=== PATIENT | female | born 1990 | race Caucasian/White ===

== ENCOUNTER 2016-05-17 12:40 | Emergency (ER) | payer BC, OTHER ==
--- NOTE | 2016-05-17 13:42 | ED ---
Female Urogenital HPI - General Chief complaint: Vaginal Bleeding Stated complaint: Cramping Length Unknown Time Seen by Provider: 05/17/16 13:31 Source: patient, RN notes reviewed Mode of arrival: ambulatory Limitations: no limitations - History of Present Illness Initial comments: 25-year-old female presents emergency Department with a chief complaint of pelvic pain. Patient states that she is currently and she has developed some pain in the center of her lower abdomen. Patient noticed some light spotting a few days ago. Patient states that she is a . Patient states she hasn't had a fever chills. Patient denies any changes in bowel or bladder habits. Patient states that she was concerned due to the continued abdominal pain and discomfort so she thought that she should be seen. Patient states she has had nausea and vomiting on and off recently. Patient denies any recent fever, chills, shortness of breath, chest pain, back pain, numbness or tingling, dysuria or hematuria, constipation or diarrhea, headaches or visual changes, or any other current symptoms. Last Menstrual Period: 04/02/16 - Related Data Home Medications Medication Instructions Recorded Confirmed Melatonin 3 mg PO HS PRN 05/17/16 05/17/16 Allergies Allergy/AdvReac Type Severity Reaction Status Date / Time No Known Allergies Allergy Verified 05/17/16 14:30 Review of Systems ROS Statement: Those systems with pertinent positive or pertinent negative responses have been documented in the HPI. ROS Other: All systems not noted in ROS Statement are negative. Past Medical History Past Medical History: No Reported History Additional Past Medical History / Comment(s): high risk pregnanies History of Any Multi-Drug Resistant Organisms: None Reported Past Surgical History: No Surgical Hx Reported, Ear Surgery Past Psychological History: Anxiety, Bipolar, Depression Smoking Status: Current every day smoker Past Alcohol Use History: Occasional Past Drug Use History: None Reported, Marijuana General Exam - General Exam Comments Initial Comments: General: The patient is awake and alert, in no distress, and does not appear acutely ill. Eye: Pupils are equal, round and reactive to light, extra-ocular movements are intact; there is normal conjunctiva bilaterally. No signs of icterus. Ears, nose, mouth and throat: There are moist mucous membranes. Neck: The neck is supple, there is no tenderness. Cardiovascular: There is a regular rate and rhythm. No murmur, rub or gallop is appreciated. Respiratory: Lungs are clear to auscultation, respirations are non-labored, breath sounds are equal. No wheezes, stridor, rales, or rhonchi. Gastrointestinal: Soft, non-distended, non-tender abdomen without masses or organomegaly noted. There is no rebound or guarding present. No CVA tenderness. Bowel sounds are unremarkable. Back: There is no tenderness to palpation in the midline. There is no obvious deformity. No rashes noted. Musculoskeletal: Normal ROM, no tenderness, There is no pedal edema. There is no calf tenderness or swelling. Sensation intact. Pulses equal bilaterally 2+. Neurological: CN II-XII intact, There are no obvious motor or sensory deficits. Coordination appears grossly intact. Speech is normal. Skin: Skin is warm and dry and no rashes or lesions are noted. Psychiatric: Cooperative, appropriate mood & affect, normal judgment. Limitations: no limitations Course Vital Signs 05/17/16 05/17/16 12:54 16:00 Temperature 98.1 F 98 F Pulse Rate 71 84 Respiratory 18 20 Rate Blood Pressure 138/60 110/68 O2 Sat by Pulse 99 98 Oximetry Medical Decision Making - Medical Decision Making 25-year-old female presents to emergency Department chief complaint of abdominal pain. This time patient's ultrasound is reviewed that does show a confirmed IUP. Patient's mother is otherwise reviewed. He does appear to be some mild dehydration we will give the patient fluids here as well as Tylenol and Reglan. We discussed follow-up with RETORT PRESS OPERATOR and return parameters. Patient stated she understood all questions have been answered. This time she'll be discharged home. - Lab Data Result diagrams: 05/17/16 14:34 05/17/16 14:34 Lab Results 05/17/16 05/17/16 05/17/16 Range/Units 14:30 14:34 14:34 WBC 11.2 H (3.8-10.6) k/uL RBC 4.35 (3.80-5.40) m/uL Hgb 13.7 (11.4-16.0) gm/dL Hct 41.7 (34.0-46.0) % MCV 95.9 (80.0-100.0) fL MCH 31.4 (25.0-35.0) pg MCHC 32.8 (31.0-37.0) g/dL RDW 12.8 (11.5-15.5) % Plt Count 290 (150-450) k/uL Neutrophils % 86 % Lymphocytes % 8 % Monocytes % 4 % Eosinophils % 0 % Basophils % 0 % Neutrophils # 9.7 H (1.3-7.7) k/uL Lymphocytes # 0.9 L (1.0-4.8) k/uL Monocytes # 0.5 (0-1.0) k/uL Eosinophils # 0.1 (0-0.7) k/uL Basophils # 0.0 (0-0.2) k/uL Sodium 140 (137-145) mmol/L Potassium 4.0 (3.5-5.1) mmol/L Chloride 109 H (98-107) mmol/L Carbon Dioxide 19 L (22-30) mmol/L Anion Gap 12 mmol/L BUN 8 (7-17) mg/dL Creatinine 0.60 (0.52-1.04) mg/dL Est GFR (MDRD) Af Amer >60 (>60 ml/min/1.73 sqM) Est GFR (MDRD) Non-Af >60 (>60 ml/min/1.73 sqM) Glucose 100 H (74-99) mg/dL Calcium 9.7 (8.4-10.2) mg/dL Total Bilirubin 0.7 (0.2-1.3) mg/dL AST 18 (14-36) U/L ALT 22 (9-52) U/L Alkaline Phosphatase 55 (38-126) U/L Total Protein 7.3 (6.3-8.2) g/dL Albumin 4.5 (3.5-5.0) g/dL HCG, Quant 18266.8 mIU/mL Urine Color Urine Appearance (Clear) Urine pH (5.0-8.0) Ur Specific [place] (1.001-1.035) Urine Protein (Negative) Urine Glucose (UA) (Negative) Urine Ketones (Negative) Urine Blood (Negative) Urine Nitrate (Negative) Urine Bilirubin (Negative) Urine Urobilinogen (<2.0) mg/dL Ur Leukocyte Esterase (Negative) Urine WBC (0-5) /hpf Ur Squamous Epith Cells (0-4) /hpf Urine Bacteria (None) /hpf Urine Mucus (None) /hpf Blood Type B Positive Blood Type Recheck No 05/17/16 Range/Units 14:34 WBC (3.8-10.6) k/uL RBC (3.80-5.40) m/uL Hgb (11.4-16.0) gm/dL Hct (34.0-46.0) % MCV (80.0-100.0) fL MCH (25.0-35.0) pg MCHC (31.0-37.0) g/dL RDW (11.5-15.5) % Plt Count (150-450) k/uL Neutrophils % % Lymphocytes % % Monocytes % % Eosinophils % % Basophils % % Neutrophils # (1.3-7.7) k/uL Lymphocytes # (1.0-4.8) k/uL Monocytes # (0-1.0) k/uL Eosinophils # (0-0.7) k/uL Basophils # (0-0.2) k/uL Sodium (137-145) mmol/L Potassium (3.5-5.1) mmol/L Chloride (98-107) mmol/L Carbon Dioxide (22-30) mmol/L Anion Gap mmol/L BUN (7-17) mg/dL Creatinine (0.52-1.04) mg/dL Est GFR (MDRD) Af Amer (>60 ml/min/1.73 sqM) Est GFR (MDRD) Non-Af (>60 ml/min/1.73 sqM) Glucose (74-99) mg/dL Calcium (8.4-10.2) mg/dL Total Bilirubin (0.2-1.3) mg/dL AST (14-36) U/L ALT (9-52) U/L Alkaline Phosphatase (38-126) U/L Total Protein (6.3-8.2) g/dL Albumin (3.5-5.0) g/dL HCG, Quant mIU/mL Urine Color Yellow Urine Appearance Clear (Clear) Urine pH 5.5 (5.0-8.0) Ur Specific [place] 1.022 (1.001-1.035) Urine Protein Trace H (Negative) Urine Glucose (UA) Negative (Negative) Urine Ketones 3+ H (Negative) Urine Blood Negative (Negative) Urine Nitrate Negative (Negative) Urine Bilirubin Negative (Negative) Urine Urobilinogen <2.0 (<2.0) mg/dL Ur Leukocyte Esterase Trace H (Negative) Urine WBC 4 (0-5) /hpf Ur Squamous Epith Cells 5 H (0-4) /hpf Urine Bacteria Rare H (None) /hpf Urine Mucus Moderate H (None) /hpf Blood Type Blood Type Recheck - Radiology Data Radiology results: report reviewed, image reviewed Disposition Clinical Impression: Abdominal pain affecting Disposition: HOME SELF-CARE Condition: Stable Instructions: Abdominal Pain in (ED) Additional Instructions: Please use medication as discussed. Please follow up with family doctor if symptoms have not improved over the next two days. Please return to the emergency room if your symptoms increase or worsen or for any other concerns. Referrals: Kaley Hdz MD [Primary Care Provider] - 1-2 days Time of Disposition: 16:17
[2016-05-17] MEDS ORDERED: SODIUM CHLORIDE 0.9% 1,000 ML IV STA (14:15)
[2016-05-17 14:52] LABS: Basophils % (A) 0 %; CH 32.1; CHCM 33.6; Eosinophils # (A) 0.1 k/uL (0-0.7); Eosinophils % (A) 0 %; HCT 41.7 % (34.0-46.0); HGB 13.7 gm/dL (11.4-16.0); Luc # (Auto) 0.09; Luc % (Auto) 1; Lymphocytes # (A) 0.9 k/uL (1.0-4.8); Lymphocytes % (A) 8 %; MCH 31.4 pg (25.0-35.0); MCHC 32.8 g/dL (31.0-37.0); MCV 95.9 fL (80.0-100.0); Mean Platelet Volume 6.7; Monocytes # (A) 0.5 k/uL (0-1.0); Monocytes % (A) 4 %; Neutrophils # (A) 9.7 k/uL (1.3-7.7); Neutrophils % (A) 86 %; RBC 4.35 m/uL (3.80-5.40); RDW 12.8 % (11.5-15.5); WBC 11.2 k/uL (3.8-10.6)
[2016-05-17 14:58] LABS: Appearance,Urine Clear (Clear); Bacteria,Urine Rare /hpf; Bilirubin,Urine Negative (Negative); Glucose,Urine (UA) Negative (Negative); Ketones,Urine 3+ (Negative); Leukocyte Esterase,Urine Trace (Negative); Mucus,Urine Moderate /hpf; Nitrite,Urine Negative (Negative); PH, Urine 5.5 (5.0-8.0); Particle Count 13895; Protein,Urine Trace (Negative); Specific Gravity,Urine 1.022 (1.001-1.035); Squamous Epithelial Cell,Urine 5 /hpf (0-4); UA Billing (MACRO vs. MICRO) MICRO; Urobilinogen,Urine <2.0 mg/dL (<2.0); WBC,Urine 4 /hpf (0-5)
[2016-05-17 15:01] LABS: ALT 22 U/L (9-52); AST 18 U/L (14-36); Alkaline Phosphatase 55 U/L (38-126); Anion Gap 12 mmol/L; Blood Urea Nitrogen 8 mg/dL (7-17); Calcium 9.7 mg/dL (8.4-10.2); Carbon Dioxide 19 mmol/L (22-30); Chloride 109 mmol/L (98-107); Glucose 100 mg/dL (74-99); Non-African American GFR(MDRD) >60 (>60 ml/min/1.73 sqM); Sodium 140 mmol/L (137-145); Total Bilirubin 0.7 mg/dL (0.2-1.3); Total Protein 7.3 g/dL (6.3-8.2)
--- NOTE | 2016-05-17 15:29 | US ---
EXAMINATION TYPE: US OB <=14 wks transvag DATE OF EXAM: 05/17/2016 3:01 PM COMPARISON: NONE CLINICAL HISTORY: Pain. Left pelvic pain, spotting 2 days ago EXAM PERFORMED: Transvaginal (TV) and Transabdominal (TA) pelvic ultrasound. EXAM MEASUREMENTS: GESTATIONAL AGE / DATING Physician Established: not established Dates by LMP: (6 weeks/3 days) EDC: 01/07/17 Dates by First Scan: no prior Dates by Current Scan for: (6 weeks/0 days) EDC: 01/10/17 MATERNAL ANATOMY Uterus: 6.9 x 5.5 x 6.0cm Right Ovary: 3.8 x 1.9 x 2.6cm Left Ovary: 3.0 x 1.2 x 3.2cm Post CDS / Adnexa: cystic area right adnexa adjacent to right ovary = 1.0 x 0.9 x 1.1cm Presence of free fluid: no Presence of corpus luteal cyst: yes,right ovary = 2.1 x 1.5 x 1.7cm GESTATION / SURVEY CRL: 0.3cm (6 weeks/0 days) Yolk Sac (normal less than 6mm): 0.2cm Heart Rate: 110 bpm Rhythm: Normal IUP: Viable IUP Date of LMP: 04/02/16 Beta HcG (if available): unavailable TECHNOLOGIST IMPRESSION: Single viable IUP 6wks/0days with BARON of 01/10/17. Heart rate lower end of normal. Corpus luteum right ovary Uterus is anteverted in shape and within normal limits in size. Centrally in the uterus there is gest ational sac, yolk sac, pole identified. No free fluid is seen in pelvic cul-de-sac. heart tones are regular and measure 110 bpm lower limits of normal. Both ovaries are identified. Within the right ovary there is 2.1 cm hypoechoic peripheral hypervascul ar lesion felt to reflect corpus luteal cyst. A 10 mm extraovarian cystic lesion right adnexa is note d could reflect exophytic simple appearing cyst as is immediately adjacent to right ovary. IMPRESSION: Single live intrauterine gestation is confirmed, mean crown-rump length is 0.3 cm corresponding to 6 week 0 day old fetus.
[2016-05-17] MEDS ORDERED: METOCLOPRAMIDE 5 MG/ML 2 ML VIAL IVP STA (15:32)
[2016-05-17] MEDS ORDERED: ACETAMINOPHEN IV (For NPO) 1,000 MG in EMPTY BAG 1 BAG IVPB ONE (15:32)
[2016-05-17 15:54] LABS: HCG,Quantitative Serum 23231.8 mIU/mL
[2016-05-17 16:25] VITALS: BP 117/75; PULSE 78; RESP 16; TEMP 97.8
== END 2016-05-17 16:25 | disposition home or self-care (01) ==
LOC: EC 12:40
DX: O99.89 Other specified diseases and conditions complicating pregnancy, childbirth and the puerperium (principal); O20.9 Hemorrhage in early pregnancy, unspecified; O99.331 Smoking (tobacco) complicating pregnancy, first trimester; R10.2 Pelvic and perineal pain; F17.200 Nicotine dependence, unspecified, uncomplicated; Z3A.01 Less than 8 weeks gestation of pregnancy
CPT/HCPCS: 36415; 86900; 86901; 80053; 85025; 81001; 84702; 87086; 76801; 76817; 99284; 96365; 96375; 96361; J2765; J0131; 87077; 87186

== ENCOUNTER 2016-05-21 07:33 | Inpatient (IN) | payer BC, MEDICAID ==
[2016-05-21] MEDS ORDERED: diphenhydrAMINE 50 MG CAP PO STA (08:08)
--- NOTE | 2016-05-21 08:21 | ED ---
Psych HPI - General Chief Complaint: Psychiatric Symptoms Stated Complaint: panic attack Time Seen by Provider: 05/21/16 07:56 Source: patient Mode of arrival: ambulatory - History of Present Illness Initial Comments: 25-year-old female patient presents to emergency department today for complaints of increased anxiety, restlessness, and suicidal ideation over the last 4 days. Patient states that she was seen here 4 days ago and found out that she was . Since then she has unable to sleep, unable to eat, and has had multiple panic attacks. Patient does verbalize suicidal ideation, she denies any specific plan to do this. She has had suicidal ideation in the past with no specific attempt. Patient has been hospitalized twice before for depression and suicidal thoughts. Patient states that it feels like her skin is crawling, she cannot relax, and she has been crying continuously for the last 4 days. During exam patient is tearful, and repeatedly asks if we can " get rid of this" and points to her belly. She states she doesn't want her child anymore if it is going to make her feel this way. Patient denies any chest pain, shortness of breath, nausea, vomiting, or abdominal pain. She denies any vaginal bleeding, discharge, or urinary symptoms. In light of patient's verbalization of suicidal ideation we will place a sitter with the patient. - Related Data Home Medications Medication Instructions Recorded Confirmed Melatonin 3 mg PO HS PRN 05/17/16 05/21/16 Previous Rx's Medication Instructions Recorded Cephalexin [Keflex] 500 mg PO Q6HR #28 cap 05/21/16 Metoclopramide [Reglan] 10 mg PO TID PRN #15 tab 05/21/16 Allergies Allergy/AdvReac Type Severity Reaction Status Date / Time No Known Allergies Allergy Verified 05/21/16 10:34 Review of Systems ROS Statement: Those systems with pertinent positive or pertinent negative responses have been documented in the HPI. ROS Other: All systems not noted in ROS Statement are negative. Past Medical History Past Medical History: No Reported History Additional Past Medical History / Comment(s): high risk pregnanies History of Any Multi-Drug Resistant Organisms: None Reported Past Surgical History: No Surgical Hx Reported, Ear Surgery Past Psychological History: Anxiety, Bipolar, Depression Smoking Status: Current every day smoker Past Alcohol Use History: Occasional Past Drug Use History: None Reported, Marijuana General Exam Limitations: no limitations General appearance: alert, anxious Head exam: Present: atraumatic, normocephalic Eye exam: Present: normal appearance, PERRL ENT exam: Present: normal exam, normal oropharynx, mucous membranes moist. Absent: mucous membranes dry Neck exam: Present: normal inspection Respiratory exam: Present: normal lung sounds bilaterally. Absent: respiratory distress, wheezes, rales, rhonchi Cardiovascular Exam: Present: regular rate, normal rhythm, normal heart sounds. Absent: systolic murmur, diastolic murmur, rubs, gallop, clicks GI/Abdominal exam: Present: soft, normal bowel sounds. Absent: distended, tenderness, guarding, rebound, rigid, organomegaly, mass Extremities exam: Present: normal inspection Back exam: Present: normal inspection Neurological exam: Present: alert, oriented X3, CN II-XII intact Psychiatric exam: Present: agitated, anxious Skin exam: Present: warm, dry, intact Course Vital Signs 05/21/16 07:36 Temperature 98.0 F Pulse Rate 122 H Respiratory 26 H Rate Blood Pressure 131/87 O2 Sat by Pulse 99 Oximetry Medical Decision Making - Medical Decision Making 25-year-old female presented emergency from for panic attacks states she does not feel right. Patient had a ago by EPS. That she does not meet inpatient criteria that she will be monitored at home by her mother who accepts responsibility. Patient will be given antibiotics for UTI and she had a culture elevated positive for E. coli. Patient will be discharged with antinausea medication return parameters were discussed. - Lab Data Lab Results 05/21/16 Range/Units 08:25 Urine Color Yellow Urine Appearance Cloudy H (Clear) Urine pH 5.5 (5.0-8.0) Ur Specific [place] 1.025 (1.001-1.035) Urine Protein 1+ H (Negative) Urine Glucose (UA) Negative (Negative) Urine Ketones 3+ H (Negative) Urine Blood Negative (Negative) Urine Nitrate Negative (Negative) Urine Bilirubin Negative (Negative) Urine Urobilinogen <2.0 (<2.0) mg/dL Ur Leukocyte Esterase Large H (Negative) Urine WBC 8 H (0-5) /hpf Ur Squamous Epith Cells 17 H (0-4) /hpf Urine Mucus Many H (None) /hpf Urine Opiates Screen Not Detected (NotDetected) Ur Oxycodone Screen Not Detected (NotDetected) Urine Methadone Screen Not Detected (NotDetected) Ur Propoxyphene Screen Not Detected (NotDetected) Ur Barbiturates Screen Not Detected (NotDetected) U Tricyclic Antidepress Not Detected (NotDetected) Ur Phencyclidine Scrn Not Detected (NotDetected) Ur Amphetamines Screen Not Detected (NotDetected) U Methamphetamines Scrn Not Detected (NotDetected) U Benzodiazepines Scrn Not Detected (NotDetected) Urine Cocaine Screen Not Detected (NotDetected) U Marijuana (THC) Screen Detected H (NotDetected) Disposition Clinical Impression: Acute anxiety, UTI (urinary tract infection) Disposition: HOME SELF-CARE Condition: Stable Instructions: Anxiety (ED) Additional Instructions: Please return to the Emergency Department if symptoms worsen or any other concerns. Prescriptions: Cephalexin [Keflex] 500 mg PO Q6HR #28 cap Metoclopramide [Reglan] 10 mg PO TID PRN #15 tab PRN Reason: GERD Time of Disposition: 10:48
[2016-05-21 08:56] LABS: Appearance,Urine Cloudy (Clear); Bilirubin,Urine Negative (Negative); Glucose,Urine (UA) Negative (Negative); Ketones,Urine 3+ (Negative); Leukocyte Esterase,Urine Large (Negative); Mucus,Urine Many /hpf; Nitrite,Urine Negative (Negative); PH, Urine 5.5 (5.0-8.0); Particle Count 30151; Protein,Urine 1+ (Negative); Specific Gravity,Urine 1.025 (1.001-1.035); Squamous Epithelial Cell,Urine 17 /hpf (0-4); UA Billing (MACRO vs. MICRO) MICRO; Urobilinogen,Urine <2.0 mg/dL (<2.0); WBC,Urine 8 /hpf (0-5)
[2016-05-21] MEDS ORDERED: cefTRIAXone 1,000 MG VIAL (IM USE) IM STA (10:48)
--- NOTE | 2016-05-21 11:11 | ED ---
Medical Decision Making - Medical Decision Making Disposition was changed at this time as patient will be petitioned and admitted to the hospital. - Lab Data Lab Results 05/21/16 Range/Units 08:25 Urine Color Yellow Urine Appearance Cloudy H (Clear) Urine pH 5.5 (5.0-8.0) Ur Specific [place] 1.025 (1.001-1.035) Urine Protein 1+ H (Negative) Urine Glucose (UA) Negative (Negative) Urine Ketones 3+ H (Negative) Urine Blood Negative (Negative) Urine Nitrate Negative (Negative) Urine Bilirubin Negative (Negative) Urine Urobilinogen <2.0 (<2.0) mg/dL Ur Leukocyte Esterase Large H (Negative) Urine WBC 8 H (0-5) /hpf Ur Squamous Epith Cells 17 H (0-4) /hpf Urine Mucus Many H (None) /hpf Urine Opiates Screen Not Detected (NotDetected) Ur Oxycodone Screen Not Detected (NotDetected) Urine Methadone Screen Not Detected (NotDetected) Ur Propoxyphene Screen Not Detected (NotDetected) Ur Barbiturates Screen Not Detected (NotDetected) U Tricyclic Antidepress Not Detected (NotDetected) Ur Phencyclidine Scrn Not Detected (NotDetected) Ur Amphetamines Screen Not Detected (NotDetected) U Methamphetamines Scrn Not Detected (NotDetected) U Benzodiazepines Scrn Not Detected (NotDetected) Urine Cocaine Screen Not Detected (NotDetected) U Marijuana (THC) Screen Detected H (NotDetected) Disposition Clinical Impression: Acute anxiety, UTI (urinary tract infection), Mood disorder Disposition: ADMITTED IP TO THIS [facility] Condition: Fair Additional Instructions: Please return to the Emergency Department if symptoms worsen or any other concerns. Prescriptions: Cephalexin [Keflex] 500 mg PO Q6HR #28 cap Metoclopramide [Reglan] 10 mg PO TID PRN #15 tab PRN Reason: GERD Referrals: Kaley Hdz MD [Primary Care Provider] - 1-2 days
[2016-05-21] MEDS ORDERED: ACETAMINOPHEN TAB 500 MG TAB PO STA (11:39)
[2016-05-21] MEDS ORDERED: METOCLOPRAMIDE 5 MG/ML 2 ML VIAL IM STA (12:06)
[2016-05-21] MEDS ORDERED: ZIPRASIDONE 20 MG VIAL IM PRN (15:50)
[2016-05-21] MEDS ORDERED: ZIPRASIDONE 20 MG VIAL IM ONE (15:59)
[2016-05-21] MEDS ORDERED: WATER FOR INJECTION, STERILE 10 ML IV ONE (15:59)
[2016-05-21] MEDS: CEPHALEXIN 500 MG CAP PO SCH (18:39)
[2016-05-21] MEDS: METOCLOPRAMIDE 10 MG TAB PO PRN (18:39)
[2016-05-21] MEDS ORDERED: HALOPERIDOL LACTATE 5 MG/ML 1 ML VIAL IM ONE (20:03)
[2016-05-21] MEDS ORDERED: HALOPERIDOL 5 MG TAB PO STA (20:04)
[2016-05-21 20:36] LABS: Basophils % (A) 0 %; CH 31.8; Eosinophils % (A) 0 %; HCT 42.1 % (34.0-46.0); HDW 2.13; HGB 13.6 gm/dL (11.4-16.0); Luc # (Auto) 0.21; Luc % (Auto) 2; Lymphocytes # (A) 1.6 k/uL (1.0-4.8); Lymphocytes % (A) 12 %; MCH 31.3 pg (25.0-35.0); MCHC 32.3 g/dL (31.0-37.0); MCV 96.8 fL (80.0-100.0); Mean Platelet Volume 6.9; Monocytes # (A) 0.7 k/uL (0-1.0); Monocytes % (A) 5 %; Neutrophils # (A) 10.3 k/uL (1.3-7.7); Neutrophils % (A) 81 %; RBC 4.35 m/uL (3.80-5.40); RDW 12.7 % (11.5-15.5); WBC 12.8 k/uL (3.8-10.6); WBC (Perox) 13.81
[2016-05-21 20:55] LABS: ALT 25 U/L (9-52); AST 18 U/L (14-36); Alkaline Phosphatase 52 U/L (38-126); Anion Gap 16 mmol/L; Blood Urea Nitrogen 11 mg/dL (7-17); Carbon Dioxide 23 mmol/L (22-30); Chloride 101 mmol/L (98-107); Glucose 117 mg/dL (74-99); Non-African American GFR(MDRD) >60 (>60 ml/min/1.73 sqM); Sodium 140 mmol/L (137-145); Total Bilirubin 0.6 mg/dL (0.2-1.3); Total Protein 7.8 g/dL (6.3-8.2)
--- NOTE | 2016-05-21 20:57 | CONS ---
DATE OF CONSULTATION: 05/21/2016 REASON FOR CONSULTATION: Advice regarding polysubstance abuse and other Medical issues requested by psychiatry. HISTORY OF PRESENT ILLNESS: This 25-year-old woman with a past history of bipolar depression. History of anxiety, history of polysubstance abuse, being followed by Dr. Hdz in the outpatient setting is also 6 weeks according to her. The patient is complaining of severe multiple anxiety symptoms and the patient was admitted to the hospital for further evaluation and treatment. The patient is hyperactive in her room and the patient is unable to sit still, unable to sleep, unable to eat and multiple panic attacks also. There is no history of any fever, rigors. No history of headache, loss of consciousness, seizures. The patient feels the skin is crawling. The patient's SUCCESS COACH is Dr. Fernández. There is no history of any fever, rigors or chills. No history of headache, loss of consciousness or seizures. The patient being followed by Dr. Hdz in the outpatient setting. PAST MEDICAL HISTORY: 1. History of anxiety, bipolar depression. 2. History of nicotine dependence. 3. History of THC. Medications prior to admission include: 1. Melatonin 3 mg q.h.s. p.r.n. 2. Reglan 10 mg t.i.d. ALLERGIES: None. FAMILY HISTORY: No history of heart disease or strokes in the family. SOCIAL HISTORY: Smoking. THC as mentioned earlier. REVIEW OF SYSTEMS: HEENT: No diminished vision. No diminished hearing. CARDIOVASCULAR: No angina or palpitations. RESPIRATORY: No cough or hemoptysis. GI: No nausea or vomiting. : As mentioned earlier. Nervous system: No numbness or weakness. ALLERGY/IMMUNOLOGY: No asthma or hayfever. MUSCULOSKELETAL: As mentioned earlier. DERMATOLOGY/ONCOLOGY: No history of anemia. ENDOCRINE: No history of diabetes or hypothyroidism. CONSTITUTIONAL: As mentioned earlier. DERMATOLOGY: Negative. PSYCHIATRY: As mentioned earlier. RHEUMATOLOGY: negative. PHYSICAL EXAMINATION: The patient is alert and oriented x3. Pulse is 90, blood pressure is 124/60. Respiratory rate 16. Temperature 98 degrees. Pulse ox 98% on room air. HEENT: Conjunctivae normal. NECK: No jugular venous distention. CARDIOVASCULAR: S1, S2 muffled. RESPIRATORY: Breath sounds diminished at the bases. A few scattered rhonchi and crackles. ABDOMEN: Soft, nontender. No mass palpable. LEGS: No edema. No swelling. CENTRAL NERVOUS SYSTEM: Higher functions as mentioned earlier. Moves all four limbs. No focal deficits. LYMPHATICS: No lymph nodes palpable in the neck, axillae or groin. SKIN: No ulcer, rash or bleeding. LABS: Her UA noted, large leukocyte esterase otherwise THC positive. ASSESSMENT: 1. Urinary tract infection. 2. Six weeks' . 3. History of positive THC. 4. History of nicotine dependence. 5. Anxiety, bipolar depression and panic attacks. 6. FULL CODE. RECOMMENDATIONS AND DISCUSSION: This 25 -year-old woman presented with multiple medical issues. At this time, I recommend to continue current medications and continue symptomatic treatment. The patient was started on Keflex. I would also recommend urine culture and I would also recommend obtain baseline labs and I will be happy to review abnormalities and baseline labs. Otherwise, I would also recommend SUCCESS COACH consultation. Further psychiatric evaluation also. We will follow the patient closely with you. Prognosis guarded. Further recommendations to follow. MTDD
[2016-05-22] MEDS: CEPHALEXIN 500 MG CAP PO SCH ×4 (00:44→18:57)
[2016-05-22 10:12] VITALS: BMI 22.8
[2016-05-22] MEDS: METOCLOPRAMIDE 10 MG TAB PO PRN (12:34)
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
[2016-05-22] MEDS: busPIRone HCl 5 MG TAB PO SCH ×2 (14:45→21:39)
[2016-05-22] MEDS ORDERED: ONDANSETRON 4 MG TAB PO PRN (17:16)
[2016-05-22] MEDS: ONDANSETRON ODT 4 MG TAB PO PRN (18:08)
[2016-05-23] MEDS: CEPHALEXIN 500 MG CAP PO SCH ×4 (01:43→18:03)
[2016-05-23] MEDS: ONDANSETRON ODT 4 MG TAB PO PRN ×3 (06:33→22:35)
[2016-05-23] MEDS: busPIRone HCl 5 MG TAB PO SCH ×2 (09:30→20:28)
--- NOTE | 2016-05-23 10:36 | P.OBCN ---
History of Present Illness Consult date: 05/23/16 Reason for consult: other (, hyperemesis) Chief complaint: Hyperemesis, anxiety History of present illness: 25 year old presented to the hospital with excessive N/V as well as a "mental breakdown". She has anxiety, depression and bipolar in her history per pt. She is currently being treated with buspar for her anxiety, refusing antidepressants. She says she feels empty and wants to rock back and forth because her legs won't stop. Her vomitting is improving. I added zofran odt to her regimen yesterday because reglan was not helping and she was not keeping anything down. Today she has kept down one popsicle so far. Review of Systems All systems: negative Constitutional: Denies chills, Denies fever Eyes: denies blurred vision, denies pain Ears, nose, mouth and throat: Denies headache, Denies sore throat Cardiovascular: Denies chest pain, Denies shortness of breath Respiratory: Denies cough Gastrointestinal: Reports nausea, Reports vomiting, Denies diarrhea Genitourinary: Denies dysuria, Denies hematuria Musculoskeletal: Denies myalgias Integumentary: Denies pruritus, Denies rash Neurological: Denies numbness, Denies weakness Psychiatric: Denies anxiety, Denies depression Endocrine: Denies fatigue, Denies weight change Past Medical History Past Medical History: No Reported History Additional Past Medical History / Comment(s): OB history: 3 miscarriages, 1 NVD at term and 1 vag delivery at 31 weeks at [facility]. History of Any Multi-Drug Resistant Organisms: None Reported Past Surgical History: No Surgical Hx Reported, Ear Surgery Past Psychological History: Anxiety, Bipolar, Depression Smoking Status: Former smoker Past Alcohol Use History: Occasional Past Drug Use History: None Reported, Marijuana Medications and Allergies Home Medications Medication Instructions Recorded Confirmed Type Melatonin 3 mg PO HS PRN 05/17/16 05/21/16 History Allergies Allergy/AdvReac Type Severity Reaction Status Date / Time No Known Allergies Allergy Verified 05/22/16 10:26 Exam Osteopathic Statement: *. No significant issues noted on an osteopathic structural exam other than those noted in the History and Physical/Consult. - Vital Signs Vital signs: Vital Signs Temp Pulse Resp BP Pulse Ox 05/23/16 05:35 97.8 F 72 20 138/91 05/22/16 09:57 99 20 112/80 97 Intake and Output 05/22/16 05/23/16 05/23/16 21:59 06:59 14:59 Other: Weight 55.7 kg Patient Weight 05/24/16 06:59 Weight 55.7 kg Abdomen: soft, nontender Results Result Diagrams: 05/21/16 20:25 05/21/16 20:25 Assessment and Plan (1) Hyperemesis gravidarum Status: Acute (2) Marijuana use Status: Acute Plan: 1. US for viability 2. discussed cessation of marijuana 3. cont buspar 4. discussed risks with cornelia rec vitamin B6 after she is discharged 5. continue to try to eat slowly starting with popsicles and crackers.. 6. keep appt with Dr Fernández on June 10.
--- NOTE | 2016-05-23 11:29 | US ---
EXAMINATION TYPE: US OB <= 14 wk fetus DATE OF EXAM: 05/23/2016 11:09 AM COMPARISON: 05/17/2016 CLINICAL HISTORY: viability. G6, P2; Patient stated smokes Marijuana; midline pelvic pain x 1 week wi th current UTI EXAM PERFORMED: Transabdominal (TA) EXAM MEASUREMENTS: GESTATIONAL AGE / DATING Physician Established: not established Dates by LMP: (7 weeks/2 days) EDC: 01/08/2016 Dates by First Scan: ( 6 weeks/6 days) EDC: 01/10/2017 Dates by Current Scan for: (6 weeks/6 days) EDC: 01/10/2017 MATERNAL ANATOMY Uterus: 8.5 x 7.7 x 5.6cm Right Ovary: 2.3 x 1.3 x 1.3cm Left Ovary: 2.1 x 1.4 x 1.9cm Post CDS / Adnexa: wnl Presence of free fluid: no Presence of corpus luteal cyst: not identified by transabdominal US Presence of subchorionic bleed: no GESTATION / SURVEY CRL: 0.9 (6 weeks/6 days) Yolk Sac (normal less than 6mm): 2.5mm Heart Rate: 132 bpm Rhythm: Normal IUP: Viable IUP Date of LMP: 04/02/2016 Beta HcG (if available): NA IMPRESSION: Single,live,IUP, 6 weeks/6 days, EDC: 01/10/2017; HR 132BPM
--- NOTE | 2016-05-23 13:09 | P.PN ---
Progress Note - Text Interval history: The patient is found in her room she follows me to an interview room. Staff report that her behavior has been much improved. The patient was seen by Dr. Gonzalez from obstetrics. An abdominal ultrasound was performed demonstrating a viable . The patient was placed on Zofran and the patient has noticed benefit. The patient has been compliant with the BuSpar 5 mg twice daily and reports an early response. Her family did visit last evening. We discussed that if she continues to demonstrate appropriate behavior today she could be possibly discharged tomorrow. Mental status exam: The patient is alert she seated calmly eye contact is appropriate. She endorses feeling better physically. She is reporting no suicidal or homicidal ideation intent or plan. There is no report of auditory or visual hallucinations she is endorsing no specific delusions at this time. She does not present hypomanic or manic today. Thought process is linear. She maintains a pleasant euthymic affect. She demonstrated no verbal or physical aggressiveness. Insight and judgment improving. Plan: The patient is feeling physically better with use of Zofran. She's been compliant with the BuSpar. She is reporting an early response and feels that her restless leg symptoms are improved. She is looking for to a visit from her mother again this evening. It seems she would be appropriate for discharge tomorrow if she demonstrates consistent appropriate behavior over the course of today and this evening. Dr. Sanchez will assume care of this patient starting tomorrow area vital signs reviewed.
[2016-05-23] MEDS ORDERED: CALCIUM CARBONATE 500 MG CHEWABLE PO PRN (18:22)
[2016-05-23] MEDS ORDERED: NACL IV SCH (18:30)
[2016-05-23] MEDS ORDERED: DEXTROSE IV SCH (18:30)
[2016-05-23] MEDS: DEXTROSE 5%-0.9% NACL 1,000 ML IV SCH (20:14)
[2016-05-24] MEDS: CEPHALEXIN 500 MG CAP PO SCH ×3 (00:12→12:47)
[2016-05-24 01:26] VITALS: BP 107/68; PULSE 59; RESP 18; TEMP 98.3
[2016-05-24] MEDS: DEXTROSE 5%-0.9% NACL 1,000 ML IV SCH (01:32)
[2016-05-24] MEDS: ONDANSETRON ODT 4 MG TAB PO PRN (06:28)
[2016-05-24] MEDS ORDERED: PANTOPRAZOLE 40 MG TABLET PO STA (08:40)
[2016-05-24] MEDS ORDERED: busPIRone HCl 10 MG TAB PO SCH (09:00)
[2016-05-24 10:00] LABS: Anion Gap 12 mmol/L; Blood Urea Nitrogen 7 mg/dL (7-17); Calcium 9.4 mg/dL (8.4-10.2); Carbon Dioxide 26 mmol/L (22-30); Chloride 100 mmol/L (98-107); Glucose 99 mg/dL (74-99); Non-African American GFR(MDRD) >60 (>60 ml/min/1.73 sqM); Potassium 3.3 mmol/L (3.5-5.1); Sodium 138 mmol/L (137-145)
[2016-05-24] MEDS ORDERED: B COMPLEX-VIT C-VIT E-ZINC 1 EACH TAB PO SCH (12:00)
--- NOTE | 2016-05-25 10:32 | DS ---
DATE OF ADMISSION: 05/21/2016 DATE OF DISCHARGE: 05/24/2016 DISCHARGE DIAGNOSES: 1. Mood disorder, not otherwise specified. 2. Anxiety disorder, not otherwise specified. 3. Cluster B personality trait. 4. Patient is 7 weeks . BRIEF SUMMARY OF ADMISSION NOTES: Patient was admitted on May 21 with acting out behavior and having "panic attack." Please refer to the complete history and physical examination dictated by Dr. Reyna on May 22. SUMMARY OF HOSPITAL COURSE: Patient was admitted to the mental health unit on petition, but later she did sign in voluntarily. Once she was admitted to the mental health unit she was seen by ASSOCIATE PROFESSOR OF SOCIOLOGY as the patient was complaining of upset stomach and nausea. They did explain to her the side effects of Zofran on her fetus and she did agree to start the Zofran every 8 hours p.r.n. for nausea. Regarding her anxiety, she did start on BuSpar 5 mg 3 times a day and titrated to 10 mg 3 times a day. Patient was seen by Dr. Gonzalez who did order an ultrasound. He did discuss with her the use of marijuana as she has been smoking marijuana on daily basis, and her urine drug screen was positive for marijuana. Patient did verbalize understanding. Patient was able to tolerate the medication and our social worker aide had family meeting with patient's parents who felt comfortable to take the patient to live with them. I did discuss the case with Dr. Reyna and he felt comfortably regarding discharging the patient today to follow up as an outpatient. Mental status examination at the time of the discharge: The patient is alert. Hygiene and grooming are fair. Speech is spontaneous and nonpressured. Thought process is linear. She denied any hopeless or helpless feeling. She denied any suicidal or homicide ideation. She denied any hypomanic or manic episodes. She denied any psychosis including hallucination or idea of reference or delusion. Insight and judgment are fair. PLAN: Patient will be discharged from the mental health unit today to return to live with her parents. Patient will continue following as outpatient at [facility]. The patient is to continue to see her ASSOCIATE PROFESSOR OF SOCIOLOGY for care. She was given one month supply of BuSpar 10 mg 3 times a day for anxiety. Patient was instructed to abstain completely from marijuana. Patient's condition at the time of the discharge is stable.
== END 2016-05-24 13:35 | disposition home or self-care (01) | DRG 781 ==
LOC: EC 07:33 → 3MHU 13:28
PROVIDERS: ADMIT Psychiatry & Neurology Psychiatry; ATTEND Psychiatry & Neurology Psychiatry
DX: O99.341 Other mental disorders complicating pregnancy, first trimester (principal); R45.851 Suicidal ideations; O23.41 Unspecified infection of urinary tract in pregnancy, first trimester; F39 Unspecified mood [affective] disorder; F12.90 Cannabis use, unspecified, uncomplicated; O99.331 Smoking (tobacco) complicating pregnancy, first trimester; Z3A.01 Less than 8 weeks gestation of pregnancy; F17.200 Nicotine dependence, unspecified, uncomplicated; G25.81 Restless legs syndrome; O21.0 Mild hyperemesis gravidarum; Z81.8 Family history of other mental and behavioral disorders; Z91.410 Personal history of adult physical and sexual abuse
CPT/HCPCS: 76801; 80048; 80053; 80306; 81001; 82075; 84443; 85025; 96372; 99285

== ENCOUNTER 2016-06-02 15:49 | Emergency (ER) | payer BC, OTHER ==
[2016-06-02 17:19] VITALS: RESP 16; TEMP 97.8
--- NOTE | 2016-06-02 18:51 | ED ---
General Adult HPI <Bj Goodrich - Last Filed: 06/02/16 21:08> - General Source: patient, RN notes reviewed Mode of arrival: ambulatory Limitations: no limitations <Bridget Osorio - Last Filed: 06/03/16 02:39> - General Chief complaint: Abdominal Pain Stated complaint: Female /8 wks preg Time Seen by Provider: 06/02/16 18:33 - History of Present Illness Initial comments: Patient is a 25-year-old female presents to emergency room for evaluation of vaginal pain. Patient states she is about 8 weeks . Patient is . Patient states she has sexual intercourse about 2 days ago with her boyfriend. Patient states yesterday she began having pain in her vaginal area. Patient states she feels like her cervix is swollen. Patient denies any history of STDs. Patient states she was diagnosed with urinary tract infection about a week ago was placed on Keflex. Patient states she has ALLERGIC, complex is making her feel so she has only been taking 1 pill per day. Patient states she still having mild pain and burning while urinating but has improved since last week. Patient denies any significant abdominal pain. Patient states she does feel nauseous. Patient states she vomited twice last night. Patient states she is feeling slightly lightheaded. Patient denies chest pain or shortness of breath. Patient denies any fevers or chills. Patient denies vaginal bleeding. 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 Patient denies history of ectopic pregnancies. (Bridget Osorio) - Related Data Home Medications Medication Instructions Recorded Confirmed Albuterol Inhaler [Ventolin Hfa 2 puff INHALATION Q6HR PRN 06/02/16 06/02/16 Inhaler] Cephalexin [Keflex] 500 mg PO DAILY 06/02/16 06/02/16 Melatonin 3 mg PO HS 06/02/16 06/02/16 busPIRone HCl [Buspar] 10 mg PO BID 06/02/16 06/02/16 Allergies Allergy/AdvReac Type Severity Reaction Status Date / Time No Known Allergies Allergy Verified 06/02/16 18:45 Review of Systems ROS Other: All systems not noted in ROS Statement are negative. <Bj Goodrich - Last Filed: 06/02/16 21:08> ROS Other: All systems not noted in ROS Statement are negative. <DevonMichelleBridget L - Last Filed: 06/03/16 02:39> ROS Statement: Those systems with pertinent positive or pertinent negative responses have been documented in the HPI. Past Medical History Past Medical History: No Reported History Additional Past Medical History / Comment(s): OB history: 3 miscarriages, 1 NVD at term and 1 vag delivery at 31 weeks at [place]. History of Any Multi-Drug Resistant Organisms: None Reported Past Surgical History: No Surgical Hx Reported, Ear Surgery Past Psychological History: Anxiety, Bipolar, Depression Smoking Status: Former smoker Past Alcohol Use History: Occasional Past Drug Use History: None Reported, Marijuana <Bridget Osorio - Last Filed: 06/03/16 02:39> General Exam General appearance: alert, in no apparent distress, anxious Head exam: Present: atraumatic, normocephalic, normal inspection Eye exam: Present: normal appearance, PERRL, EOMI. Absent: scleral icterus, conjunctival injection, periorbital swelling ENT exam: Present: normal exam, mucous membranes moist Neck exam: Present: normal inspection. Absent: tenderness, meningismus, lymphadenopathy Respiratory exam: Present: normal lung sounds bilaterally. Absent: respiratory distress, wheezes, rales, rhonchi, stridor Cardiovascular Exam: Present: normal rhythm, tachycardia, normal heart sounds. Absent: systolic murmur, diastolic murmur, rubs, gallop, clicks GI/Abdominal exam: Present: soft, normal bowel sounds. Absent: distended, tenderness, guarding, rebound, rigid Extremities exam: Present: normal inspection, full ROM, normal capillary refill. Absent: tenderness, pedal edema, joint swelling, calf tenderness Back exam: Present: normal inspection Neurological exam: Present: alert, oriented X3, CN II-XII intact Psychiatric exam: Present: normal affect, normal mood Skin exam: Present: warm, dry, intact, normal color. Absent: rash <Bj Goodrich - Last Filed: 06/02/16 21:08> Limitations: no limitations General appearance: alert, in no apparent distress Head exam: Present: atraumatic, normocephalic, normal inspection Eye exam: Present: normal appearance Pupils: Present: normal accommodation ENT exam: Present: normal exam Neck exam: Present: normal inspection Respiratory exam: Present: normal lung sounds bilaterally. Absent: respiratory distress Cardiovascular Exam: Present: regular rate, normal rhythm, normal heart sounds GI/Abdominal exam: Present: soft, normal bowel sounds. Absent: distended, tenderness, guarding, rebound, rigid External exam: Present: normal external exam Speculum exam: Present: normal speculum exam By manual exam: Present: normal by manual exam Back exam: Present: normal inspection Neurological exam: Present: alert, oriented X3, CN II-XII intact, normal gait Psychiatric exam: Present: normal affect, normal mood Skin exam: Present: warm, dry, intact, normal color. Absent: rash <Bridget Osorio - Last Filed: 06/03/16 02:39> - General Exam Comments Initial Comments: Sitting in exam room, no acute distress. (Bridget Osorio) Medical Decision Making - Lab Data Result diagrams: 06/02/16 18:45 <Bj Goodrich - Last Filed: 06/02/16 21:08> - Lab Data Result diagrams: 06/02/16 18:45 06/02/16 18:45 - Radiology Data Radiology results: report reviewed, image reviewed <Bridget Osorio - Last Filed: 06/03/16 02:39> - Medical Decision Making Patient is 25-year-old female presents emergency room for evaluation of vaginal pain during intercourse. Advised patient to refrain from sexual intercourse for the next 7-10 days and to follow-up with her [facility]. It is possible patient could be having slight uterine prolapse but advised her to follow-up with her [facility] for confirmation. Ultrasound showed no acute findings. Urine does not show evidence for urinary tract infection. Patient states she understands everything was discussed with her. Return parameters discussed. Case discussed with Dr. Goodrich. (Bridget Osorio) - Lab Data Lab Results 06/02/16 06/02/16 06/02/16 Range/Units 18:45 18:45 19:21 WBC 14.1 H (3.8-10.6) k/uL RBC 4.36 (3.80-5.40) m/uL Hgb 13.9 (11.4-16.0) gm/dL Hct 41.9 (34.0-46.0) % MCV 96.1 (80.0-100.0) fL MCH 31.9 (25.0-35.0) pg MCHC 33.2 (31.0-37.0) g/dL RDW 12.7 (11.5-15.5) % Plt Count 336 (150-450) k/uL Neutrophils % 81 % Lymphocytes % 12 % Monocytes % 5 % Eosinophils % 0 % Basophils % 0 % Neutrophils # 11.5 H (1.3-7.7) k/uL Lymphocytes # 1.6 (1.0-4.8) k/uL Monocytes # 0.7 (0-1.0) k/uL Eosinophils # 0.0 (0-0.7) k/uL Basophils # 0.1 (0-0.2) k/uL Sodium 135 L (137-145) mmol/L Potassium 3.7 (3.5-5.1) mmol/L Chloride 99 (98-107) mmol/L Carbon Dioxide 24 (22-30) mmol/L Anion Gap 12 mmol/L BUN 8 (7-17) mg/dL Creatinine 0.57 (0.52-1.04) mg/dL Est GFR (MDRD) Af Amer >60 (>60 ml/min/1.73 sqM) Est GFR (MDRD) Non-Af >60 (>60 ml/min/1.73 sqM) Glucose 80 (74-99) mg/dL Calcium 9.6 (8.4-10.2) mg/dL Total Bilirubin 0.5 (0.2-1.3) mg/dL AST 16 (14-36) U/L ALT 24 (9-52) U/L Alkaline Phosphatase 53 (38-126) U/L Total Protein 7.3 (6.3-8.2) g/dL Albumin 4.3 (3.5-5.0) g/dL HCG, Quant 935299.0 mIU/mL Urine Color Urine Appearance (Clear) Urine pH (5.0-8.0) Ur Specific [place] (1.001-1.035) Urine Protein (Negative) Urine Glucose (UA) (Negative) Urine Ketones (Negative) Urine Blood (Negative) Urine Nitrite (Negative) Urine Bilirubin (Negative) Urine Urobilinogen (<2.0) mg/dL Ur Leukocyte Esterase (Negative) Urine RBC (0-5) /hpf Urine WBC (0-5) /hpf Ur Squamous Epith Cells (0-4) /hpf Urine Mucus (None) /hpf Trichomonas Ag (Rapid) Negative (Negative) 06/02/16 Range/Units 21:29 WBC (3.8-10.6) k/uL RBC (3.80-5.40) m/uL Hgb (11.4-16.0) gm/dL Hct (34.0-46.0) % MCV (80.0-100.0) fL MCH (25.0-35.0) pg MCHC (31.0-37.0) g/dL RDW (11.5-15.5) % Plt Count (150-450) k/uL Neutrophils % % Lymphocytes % % Monocytes % % Eosinophils % % Basophils % % Neutrophils # (1.3-7.7) k/uL Lymphocytes # (1.0-4.8) k/uL Monocytes # (0-1.0) k/uL Eosinophils # (0-0.7) k/uL Basophils # (0-0.2) k/uL Sodium (137-145) mmol/L Potassium (3.5-5.1) mmol/L Chloride (98-107) mmol/L Carbon Dioxide (22-30) mmol/L Anion Gap mmol/L BUN (7-17) mg/dL Creatinine (0.52-1.04) mg/dL Est GFR (MDRD) Af Amer (>60 ml/min/1.73 sqM) Est GFR (MDRD) Non-Af (>60 ml/min/1.73 sqM) Glucose (74-99) mg/dL Calcium (8.4-10.2) mg/dL Total Bilirubin (0.2-1.3) mg/dL AST (14-36) U/L ALT (9-52) U/L Alkaline Phosphatase (38-126) U/L Total Protein (6.3-8.2) g/dL Albumin (3.5-5.0) g/dL HCG, Quant mIU/mL Urine Color Yellow Urine Appearance Cloudy H (Clear) Urine pH 5.5 (5.0-8.0) Ur Specific [place] 1.028 (1.001-1.035) Urine Protein 1+ H (Negative) Urine Glucose (UA) Negative (Negative) Urine Ketones 4+ H (Negative) Urine Blood Negative (Negative) Urine Nitrite Negative (Negative) Urine Bilirubin Negative (Negative) Urine Urobilinogen <2.0 (<2.0) mg/dL Ur Leukocyte Esterase Negative (Negative) Urine RBC <1 (0-5) /hpf Urine WBC 1 (0-5) /hpf Ur Squamous Epith Cells 2 (0-4) /hpf Urine Mucus Many H (None) /hpf Trichomonas Ag (Rapid) (Negative) Disposition <Bj Goodrich - Last Filed: 06/02/16 21:08> Time of Disposition: 22:10 <Bridget Osorio - Last Filed: 06/03/16 02:39> Clinical Impression: Abdominal pain affecting Disposition: HOME SELF-CARE Condition: Good Instructions: Abdominal Pain in (ED) Additional Instructions: Please follow up with [facility]. If any new symptom arises or symptoms worsen, return to ER as soon as possible. Referrals: Kaley Hdz MD [Primary Care Provider] - 1-2 days
[2016-06-02 19:39] LABS: ALT 24 U/L (9-52); AST 16 U/L (14-36); Alkaline Phosphatase 53 U/L (38-126); Anion Gap 12 mmol/L; Blood Urea Nitrogen 8 mg/dL (7-17); Calcium 9.6 mg/dL (8.4-10.2); Carbon Dioxide 24 mmol/L (22-30); Chloride 99 mmol/L (98-107); Glucose 80 mg/dL (74-99); Non-African American GFR(MDRD) >60 (>60 ml/min/1.73 sqM); Potassium 3.7 mmol/L (3.5-5.1); Sodium 135 mmol/L (137-145); Total Bilirubin 0.5 mg/dL (0.2-1.3); Total Protein 7.3 g/dL (6.3-8.2)
--- NOTE | 2016-06-02 19:58 | US ---
EXAMINATION TYPE: US OB <= 14 wk fetus DATE OF EXAM: 06/02/2016 7:47 PM COMPARISON: Prior in PACS CLINICAL HISTORY: Pain. EXAM PERFORMED: Transabdominal (TA) EXAM MEASUREMENTS: GESTATIONAL AGE / DATING Physician Established: (8weeks/5 days) EDC: 01/07/2017 Dates by LMP: (8 weeks/5 days) EDC: 01/07/2017 Dates by First Scan: (8 weeks/2 days) EDC: 01/10/2017 Dates by Current Scan for: (8 weeks/4 days) EDC: 01/08/2017 MATERNAL ANATOMY Uterus: 8.0 x 7.2 x 7.3 cm Right Ovary: 3.4 x 1.9 x 2.1 cm Left Ovary: 2.6 x 1.8 x 2.1 cm Post CDS / Adnexa: wnl Presence of free fluid: No Presence of corpus luteal cyst: Yes, right ovary measuring 1.7 x 1.4 x 1.3 cm Presence of subchorionic bleed: No GESTATION / SURVEY CRL: 1.97 cm (8 weeks/4 days) Yolk Sac (normal less than 6mm): 2 mm Heart Rate: 167 bpm Rhythm: Normal IUP: Viable IUP Date of LMP: 04/02/2016 Beta HcG (if available): Not available at time of exam TECHNOLOGIST IMPRESSION: Viable IUP, measurements congruent with dates IMPRESSION: The ultrasound gestational age is 8 weeks 4 days. I see no complicating process.
[2016-06-02 21:32] LABS: Basophils # (A) 0.1 k/uL (0-0.2); Basophils % (A) 0 %; CH 31.9; CHCM 33.4; Eosinophils % (A) 0 %; HCT 41.9 % (34.0-46.0); HDW 2.09; HGB 13.9 gm/dL (11.4-16.0); Luc # (Auto) 0.19; Luc % (Auto) 1; Lymphocytes # (A) 1.6 k/uL (1.0-4.8); Lymphocytes % (A) 12 %; MCH 31.9 pg (25.0-35.0); MCHC 33.2 g/dL (31.0-37.0); MCV 96.1 fL (80.0-100.0); Mean Platelet Volume 7.6; Monocytes # (A) 0.7 k/uL (0-1.0); Monocytes % (A) 5 %; Neutrophils # (A) 11.5 k/uL (1.3-7.7); Neutrophils % (A) 81 %; RBC 4.36 m/uL (3.80-5.40); RDW 12.7 % (11.5-15.5); WBC 14.1 k/uL (3.8-10.6); WBC (Perox) 14.81
[2016-06-02 21:54] LABS: Appearance,Urine Cloudy (Clear); Bilirubin,Urine Negative (Negative); Glucose,Urine (UA) Negative (Negative); Ketones,Urine 4+ (Negative); Leukocyte Esterase,Urine Negative (Negative); Mucus,Urine Many /hpf; Nitrite,Urine Negative (Negative); PH, Urine 5.5 (5.0-8.0); Particle Count 9779; Protein,Urine 1+ (Negative); RBC,Urine <1 /hpf (0-5); Specific Gravity,Urine 1.028 (1.001-1.035); Squamous Epithelial Cell,Urine 2 /hpf (0-4); UA Billing (MACRO vs. MICRO) MICRO; Urobilinogen,Urine <2.0 mg/dL (<2.0); WBC,Urine 1 /hpf (0-5)
[2016-06-02 22:22] VITALS: BP 108/69; PULSE 84
== END 2016-06-02 22:21 | disposition home or self-care (01) ==
LOC: EC 15:49
DX: O26.891 Other specified pregnancy related conditions, first trimester (principal); R10.2 Pelvic and perineal pain; O99.341 Other mental disorders complicating pregnancy, first trimester; F41.9 Anxiety disorder, unspecified; Z3A.08 8 weeks gestation of pregnancy; Z87.891 Personal history of nicotine dependence; Z79.899 Other long term (current) drug therapy; Z87.440 Personal history of urinary (tract) infections
CPT/HCPCS: 36415; 76801; 80053; 81001; 84702; 85025; 87070; 87205; 87491; 87591; 87808; 99284

== ENCOUNTER 2016-06-06 01:54 | Observation (INO) | payer BC, OTHER ==
[2016-06-06] MEDS ORDERED: METOCLOPRAMIDE 5 MG/ML 2 ML VIAL IVP STA (02:08)
[2016-06-06] MEDS ORDERED: diphenhydrAMINE 50 MG/ML 1 ML VIAL IVP STA (02:08)
[2016-06-06] MEDS ORDERED: SODIUM CHLORIDE 0.9% 2,000 ML IV STA (02:08)
--- NOTE | 2016-06-06 02:27 | ED ---
General Adult HPI - General Chief complaint: Nausea/Vomiting/Diarrhea Stated complaint: 8 wks Preg/Abdominal Pain/NVD Time Seen by Provider: 06/06/16 02:08 Source: patient, RN notes reviewed Mode of arrival: wheelchair Limitations: no limitations - History of Present Illness Initial comments: Patient is a 25-year-old female with chief complaint of 1 day of vomiting and diarrhea, and suprapubic abdominal pain. Patient reports that she is 8 weeks . Patient is . She states that she said history of 3 miscarriage. She denies any vaginal bleeding or vaginal discharge. She states that over the past 2 days that she has not been able to eat anything. Patient reports that she has no fever or chills. She states that she has nothing left in her to continue to vomit. She states that she did take at home nausea medication however she is unsure what it is. She states that it has not helped. Patient feels very dehydrated and weak. Patient reports that she does have some suprapubic abdominal pain, and it radiates towards her right left lower quadrants. She denies any chest pain shortness of breath. She states that she is have some abdominal muscle tenderness from her persistent vomiting. Patient denies any recent fever, chills, shortness of breath, chest pain, back pain, numbness or tingling, dysuria or hematuria, constipation or diarrhea , headaches or visual changes, or any other current symptoms. Patient was seen in the emergency department 4 days ago and was evaluated for vaginal pain during intercourse. Patient did receive a transvaginal ultrasound at that time which showed a viable intrauterine measuring 8 weeks. Urine was clear for any signs of UTI. - Related Data Home Medications Medication Instructions Recorded Confirmed busPIRone HCl [Buspar] 10 mg PO BID 06/02/16 06/06/16 Allergies Allergy/AdvReac Type Severity Reaction Status Date / Time No Known Allergies Allergy Verified 06/06/16 02:03 Review of Systems ROS Statement: Those systems with pertinent positive or pertinent negative responses have been documented in the HPI. ROS Other: All systems not noted in ROS Statement are negative. Past Medical History Past Medical History: No Reported History Additional Past Medical History / Comment(s): OB history: 3 miscarriages, 1 NVD at term and 1 vag delivery at 31 weeks at [place]. History of Any Multi-Drug Resistant Organisms: None Reported Past Surgical History: No Surgical Hx Reported, Ear Surgery Past Psychological History: Anxiety, Bipolar, Depression Smoking Status: Former smoker Past Alcohol Use History: None Reported Past Drug Use History: None Reported General Exam - General Exam Comments Initial Comments: 25-year-old female. Patient is dry heaving. No vomiting just sputum. Limitations: no limitations General appearance: alert, in no apparent distress Head exam: Present: atraumatic, normocephalic, normal inspection Eye exam: Present: normal appearance, PERRL, EOMI. Absent: scleral icterus, conjunctival injection, periorbital swelling ENT exam: Present: normal exam, mucous membranes moist Neck exam: Present: normal inspection. Absent: tenderness, meningismus, lymphadenopathy Respiratory exam: Present: normal lung sounds bilaterally. Absent: respiratory distress, wheezes, rales, rhonchi, stridor Cardiovascular Exam: Present: regular rate, normal rhythm, normal heart sounds. Absent: systolic murmur, diastolic murmur, rubs, gallop, clicks GI/Abdominal exam: Present: soft, tenderness (suprapubic tenderness and RLQ tenderness. ), normal bowel sounds. Absent: distended, guarding, rebound, rigid Extremities exam: Present: normal inspection, full ROM, normal capillary refill. Absent: tenderness, pedal edema, joint swelling, calf tenderness Back exam: Present: normal inspection Neurological exam: Present: alert, oriented X3, CN II-XII intact Psychiatric exam: Present: normal affect, normal mood Skin exam: Present: warm, dry, intact, normal color. Absent: rash Course Vital Signs 06/06/16 06/06/16 02:01 03:26 Temperature 98.1 F Pulse Rate 94 78 Respiratory 20 16 Rate Blood Pressure 140/86 128/74 O2 Sat by Pulse 98 98 Oximetry Medical Decision Making - Medical Decision Making Patient is a 25-year-old female with chief complaint of 1 day of vomiting and diarrhea, and suprapubic abdominal pain. Patient reports that she is 8 weeks . Patient is . She states that she said history of 3 miscarriage. She denies any vaginal bleeding or vaginal discharge. She states that over the past 2 days that she has not been able to eat anything. Patient reports that she has no fever or chills. She states that she has nothing left in her to continue to vomit. She states that she did take at home nausea medication however she is unsure what it is. She states that it has not helped. Patient feels very dehydrated and weak. Patient reports that she does have some suprapubic abdominal pain, and it radiates towards her right left lower quadrants. Patient's lab work was reviewed and does show evidence of leukocytosis of 16.1 with a left shift. Patient was given a 2 L bolus and IV Zofran of and Reglan and Benadryl. Patient reports that her nausea has subsided however she still is continuing to have pain. I discussed this case with Dr. Dior needed a [id number] examination with patient. His inclusion the patient is relatively tender over the suprapubic and right lower quadrants. At this time there is no ultrasound on site. We discussed that the patient that she needs to have an ultrasound to rule out appendicitis. A computed tomography scan would be too much radiation for a patient.. We will be admitting the patient for hydration and nausea medication as well as pain management. It is a possibility the patient could have an appendicitis, or complicated urinary tract infection. Patient will be started on IV Rocephin. Patient is in agreement with the treatment plan. - Lab Data Result diagrams: 06/06/16 02:29 06/06/16 02:29 Lab Results 06/06/16 06/06/16 06/06/16 Range/Units 02:29 02:29 02:29 WBC 16.9 H (3.8-10.6) k/uL RBC 4.58 (3.80-5.40) m/uL Hgb 14.4 (11.4-16.0) gm/dL Hct 42.9 (34.0-46.0) % MCV 93.6 (80.0-100.0) fL MCH 31.5 (25.0-35.0) pg MCHC 33.6 (31.0-37.0) g/dL RDW 12.6 (11.5-15.5) % Plt Count 376 (150-450) k/uL Neutrophils % 89 % Lymphocytes % 6 % Monocytes % 3 % Eosinophils % 0 % Basophils % 0 % Neutrophils # 15.1 H (1.3-7.7) k/uL Lymphocytes # 1.0 (1.0-4.8) k/uL Monocytes # 0.6 (0-1.0) k/uL Eosinophils # 0.0 (0-0.7) k/uL Basophils # 0.1 (0-0.2) k/uL Sodium 135 L (137-145) mmol/L Potassium 4.2 (3.5-5.1) mmol/L Chloride 98 (98-107) mmol/L Carbon Dioxide 20 L (22-30) mmol/L Anion Gap 17 mmol/L BUN 11 (7-17) mg/dL Creatinine 0.60 (0.52-1.04) mg/dL Est GFR (MDRD) Af Amer >60 (>60 ml/min/1.73 sqM) Est GFR (MDRD) Non-Af >60 (>60 ml/min/1.73 sqM) Glucose 113 H (74-99) mg/dL Calcium 10.1 (8.4-10.2) mg/dL Total Bilirubin 0.9 (0.2-1.3) mg/dL AST 19 (14-36) U/L ALT 29 (9-52) U/L Alkaline Phosphatase 56 (38-126) U/L Total Protein 7.8 (6.3-8.2) g/dL Albumin 4.7 (3.5-5.0) g/dL Amylase 65 (30-110) U/L Lipase 39 (23-300) U/L Urine Color Yellow Urine Appearance Cloudy H (Clear) Urine pH 5.5 (5.0-8.0) Ur Specific [place] 1.030 (1.001-1.035) Urine Protein 1+ H (Negative) Urine Glucose (UA) Negative (Negative) Urine Ketones 4+ H (Negative) Urine Blood Negative (Negative) Urine Nitrite Negative (Negative) Urine Bilirubin Negative (Negative) Urine Urobilinogen <2.0 (<2.0) mg/dL Ur Leukocyte Esterase Trace H (Negative) Urine RBC 3 (0-5) /hpf Urine WBC 8 H (0-5) /hpf Ur Squamous Epith Cells 12 H (0-4) /hpf Urine Bacteria Rare H (None) /hpf Hyaline Casts 12 H (0-2) /lpf Urine Mucus Many H (None) /hpf Disposition Clinical Impression: Vomiting affecting , Suprapubic abdominal pain, RLQ abdominal pain Disposition: ADMITTED IP TO THIS [facility] Time of Disposition: 03:34
[2016-06-06 02:48] LABS: Basophils # (A) 0.1 k/uL (0-0.2); Basophils % (A) 0 %; CH 32.1; CHCM 34.4; Eosinophils % (A) 0 %; HCT 42.9 % (34.0-46.0); HDW 2.19; HGB 14.4 gm/dL (11.4-16.0); Luc # (Auto) 0.14; Luc % (Auto) 1; Lymphocytes % (A) 6 %; MCH 31.5 pg (25.0-35.0); MCHC 33.6 g/dL (31.0-37.0); MCV 93.6 fL (80.0-100.0); Mean Platelet Volume 7.3; Monocytes # (A) 0.6 k/uL (0-1.0); Monocytes % (A) 3 %; Neutrophils # (A) 15.1 k/uL (1.3-7.7); Neutrophils % (A) 89 %; RBC 4.58 m/uL (3.80-5.40); RDW 12.6 % (11.5-15.5); WBC 16.9 k/uL (3.8-10.6); WBC (Perox) 16.67
[2016-06-06 02:52] LABS: ALT 29 U/L (9-52); AST 19 U/L (14-36); Alkaline Phosphatase 56 U/L (38-126); Amylase 65 U/L (30-110); Anion Gap 17 mmol/L; Blood Urea Nitrogen 11 mg/dL (7-17); Calcium 10.1 mg/dL (8.4-10.2); Carbon Dioxide 20 mmol/L (22-30); Chloride 98 mmol/L (98-107); Glucose 113 mg/dL (74-99); Non-African American GFR(MDRD) >60 (>60 ml/min/1.73 sqM); Potassium 4.2 mmol/L (3.5-5.1); Sodium 135 mmol/L (137-145); Total Bilirubin 0.9 mg/dL (0.2-1.3); Total Protein 7.8 g/dL (6.3-8.2)
[2016-06-06 03:04] LABS: Appearance,Urine Cloudy (Clear); Bacteria,Urine Rare /hpf; Bilirubin,Urine Negative (Negative); Glucose,Urine (UA) Negative (Negative); Ketones,Urine 4+ (Negative); Leukocyte Esterase,Urine Trace (Negative); Mucus,Urine Many /hpf; Nitrite,Urine Negative (Negative); PH, Urine 5.5 (5.0-8.0); Particle Count 15620; Protein,Urine 1+ (Negative); RBC,Urine 3 /hpf (0-5); Squamous Epithelial Cell,Urine 12 /hpf (0-4); UA Billing (MACRO vs. MICRO) MICRO; Urobilinogen,Urine <2.0 mg/dL (<2.0); WBC,Urine 8 /hpf (0-5)
[2016-06-06] MEDS ORDERED: ACETAMINOPHEN IV (For NPO) 1,000 MG in EMPTY BAG 1 BAG IVPB STA (03:24)
[2016-06-06] MEDS ORDERED: ACETAMINOPHEN TAB 325 MG TAB PO PRN (03:26)
[2016-06-06] MEDS ORDERED: NALOXONE 0.4 MG/ML 1 ML VIAL IV PRN (03:26)
[2016-06-06] MEDS: DEXTROSE 5%-0.45% NACL 1,000 ML IV SCH ×2 (04:38→14:47)
--- NOTE | 2016-06-06 08:23 | US ---
EXAMINATION TYPE: US abdomen APPY DATE OF EXAM: 06/06/2016 8:10 AM COMPARISON: No previous CLINICAL HISTORY: Pain. Pelvic pain x 2 weeks, N/V, fever/chills, patient is 8 weeks APPENDIX Is the appendix seen in its entirety from the proximal cecum to distal end: Appendix not seen due to overlying peristalsing bowel IMPRESSION: Appendix is not seen. No solid or cystic mass is identified.
[2016-06-06] MEDS: ONDANSETRON 4 MG/2 ML VIAL IVP PRN ×2 (08:43→17:50)
--- NOTE | 2016-06-06 10:18 | P.CON ---
Consult Note - . Consult date: 06/06/16 Assessment/Plan:: Thank you very much for asking us to see Ms. Hightower. She was admitted with intractable vomiting and some diarrhea. Pain from the vomiting mostly across the mid abdomen and epigastric area. She actually states she's been ill for at least about 2 weeks of with vomiting off and on since she was found to be . She is currently about 8 weeks . However the 3 days a symptoms worsened with the vomiting almost every hour and was not able to keep any food down. This as far she can recall cause abdominal pain. Had multiple loose stools yesterday. Was treated for urinary tract infection when she presented to the emergency room about 2 weeks ago when she was found to be . Was placed on Keflex orally urinary symptoms. No vaginal discharge or bleeding. No fever or chills. Past history reviewed and well-documented. Does have a history of bipolar disorder. Para 4 2 with the a few miscarriages. Medications as listed. ALLERGIES none known. Systems review otherwise unremarkable. No chest pain no cough hemoptysis. No blood per rectum. On examination the patient is awake alert. The vessel feels nauseous. No appetite. Hydration borderline color satisfactory anicteric. Neck otherwise normal. Heart regular rhythm. No murmurs. Lungs clinically clear. Abdomen is very soft with mild tenderness in the epigastric the supraumbilical area. Mild tenderness across lower abdomen much less so. Certainly no increased tenderness in the right lower quadrant no guarding or rebound no mass or organomegaly noted. No hernias. Has the hypoactive bowel sounds. BRICK [place] intact. Laboratory studies reviewed. WBC is 16,900. Urinalysis today is unremarkable. Ultrasound shows a nonvisualized appendix. Impression intractable nausea and vomiting with diarrhea possible acute gastroenteritis. Rule out C. diff colitis. Possible hyperemesis gravidarum. Very much acute appendicitis particularly with such a long history of symptoms. Very minimal findings in the abdomen. Recommendation continued IV fluids symptomatic treatment. Consider OB consult. Thanks again very much for asking us to see this patient in consultation.
[2016-06-06] MEDS: HYDROmorphone 1 MG/ML 1 ML SYRINGE IVP PRN ×2 (14:39→21:01)
[2016-06-06] MEDS: SODIUM CHLORIDE 0.9% 1,000 ML IV SCH (17:46)
[2016-06-07] MEDS: ONDANSETRON 4 MG/2 ML VIAL IVP PRN ×2 (01:26→09:10)
[2016-06-07] MEDS: HYDROmorphone 1 MG/ML 1 ML SYRINGE IVP PRN ×4 (03:05→21:04)
[2016-06-07] MEDS: SODIUM CHLORIDE 0.9% 1,000 ML IV SCH ×2 (04:22→16:04)
[2016-06-07 07:23] LABS: Anion Gap 6 mmol/L; Blood Urea Nitrogen 8 mg/dL (7-17); Calcium 8.5 mg/dL (8.4-10.2); Carbon Dioxide 20 mmol/L (22-30); Chloride 105 mmol/L (98-107); Glucose 76 mg/dL (74-99); Non-African American GFR(MDRD) >60 (>60 ml/min/1.73 sqM); Potassium 3.6 mmol/L (3.5-5.1); Sodium 131 mmol/L (137-145)
[2016-06-07 07:25] LABS: Basophils % (A) 0 %; CH 31.8; CHCM 33.8; Eosinophils # (A) 0.1 k/uL (0-0.7); Eosinophils % (A) 1 %; HCT 34.8 % (34.0-46.0); HDW 2.15; HGB 11.8 gm/dL (11.4-16.0); Luc % (Auto) 1; Lymphocytes # (A) 1.7 k/uL (1.0-4.8); Lymphocytes % (A) 17 %; MCHC 33.9 g/dL (31.0-37.0); MCV 94.5 fL (80.0-100.0); Mean Platelet Volume 6.3; Monocytes # (A) 0.4 k/uL (0-1.0); Monocytes % (A) 4 %; Neutrophils # (A) 7.8 k/uL (1.3-7.7); Neutrophils % (A) 77 %; RBC 3.68 m/uL (3.80-5.40); RDW 12.8 % (11.5-15.5); WBC 10.1 k/uL (3.8-10.6)
--- NOTE | 2016-06-07 10:43 | HP ---
DATE OF ADMISSION: Chief complaint is nausea, vomiting and abdominal pain. HISTORY OF PRESENT ILLNESS: Ms. Hightower is a 25-year-old female, came to the hospital with complaints of nausea and vomiting and abdominal pain, mainly in the suprapubic region. Patient is currently 9 weeks intrauterine . Otherwise, patient denied any fever or chills. Patient unable to keep down any food which made her come to the hospital. Patient feels really weak and dehydrated. Patient does have suprapubic pain, no radiation. Patient denied any constipation. Patient did have diarrhea 1 or 2 episodes, otherwise, no current diarrhea now. Denied any dysuria. No hematuria. No fever. No chills. No complaints of chest pain, short of breath. No recent illnesses. The patient was in the hospital 4 days ago with the complaints of pain during intercourse and patient had transvaginal ultrasound was done showed viable intrauterine , 8-week-old at the time. Currently, patient is still having abdominal pain. REVIEW OF SYSTEMS: CONSTITUTIONAL: No fever. No chills and the patient does have generalized weakness. RESPIRATORY: No cough or sputum production. CARDIOVASCULAR: No chest pain or short of breath. No leg swelling. ABDOMEN: Patient does have nausea. No vomiting. Patient does have abdominal pain. No diarrhea. GENITOURINARY: No dysuria. No hematuria. ENDOCRINE: Negative. PSYCHIATRIC: Negative. SKIN: Negative. MUSCULOSKELETAL: Negative. All other 14-point review of systems negative exact as above. Past medical history of 3 miscarriages. The patient is G6, P2. PAST SURGICAL HISTORY: None. PSYCHOSOCIAL: Anxiety, bipolar and depression. SOCIAL HISTORY: Patient is a former smoker. Currently denied smoking. Denied any alcohol. Denied any drugs or IVDU. FAMILY HISTORY: Denied any history of hypertension, diabetes or premature heart disease in the family. No known drug allergies. Home medications include BuSpar. PHYSICAL EXAMINATION: A 25-year-old female lying in the bed, comfortably. Awake, alert, oriented x3, appears to be in no apparent distress. VITALS: Blood pressure is 106/64, pulse is 77, respirations 16, temperature afebrile, pulse ox 97% on room air. HEENT: Atraumatic, normocephalic. Neck is supple, no JVD. CVS EXAM: S1, S2 heard. No murmurs, no gallop, no rub. LUNGS: Bilateral air entry is present. No edema or crackles, nonlabored breathing. Abdomen is soft, nontender. Bowel sounds are present. Suprapubic tenderness mild to moderate. No guarding or rigidity. Bowel sounds are present. ENROLLMENT MANAGEMENT COORDINATOR: Awake, alert, oriented x3. No focal deficit. EXTREMITIES: No edema. Pulses palpable bilaterally, no clubbing or cyanosis. PSYCHIATRIC: Cooperative. LABORATORY DATA: WBC 16.9, hemoglobin 14.4, platelets 376, sodium 137, potassium 4.2, chloride 98, bicarb is 20, anion gap 17, BUN 11, creatinine 0.6. Liver enzymes are not elevated. Amylase and lipase within normal limits. UA showed cloudy 1+ protein, 4+ ketones, trace leukocyte esterase, 3 RBC's, 8 WBC'S, and 12 squamous epithelial cells dye to hyaline cast and mucous, possibly contaminant sample. Ultrasound of the abdomen showed appendix is not seen. No solid or cystic mass is identified with ultrasound of the abdomen. IMPRESSION: 1. Abdominal pain with nausea, vomiting and ( ) of diarrhea. Possible acute gastroenteritis, improved now. 2. Abnormal urine sample, likely a contaminate and a concentrate of urine. 3. Mild anion gap metabolic acidosis and ( ) ketosis. 4. A 9-week intrauterine , status post ultrasound about 4 days back. 5. Anxiety, depression, bipolar disorder. DISCUSSION AND PLAN: Patient will be continued on IV fluids and pain management and symptomatic management for nausea and vomiting. Will follow up the urine culture report. The patient was started on ceftriaxone initially. Will continue the current management. General Surgery on board, unlikely appendicitis. Patient does not have any history of appendectomy. Will follow up closely. Further recommendations based on the clinical course. EXCHANGE CLERK has been consulted for further evaluation.
[2016-06-07] MEDS ORDERED: ONDANSETRON 4 MG/2 ML VIAL IVP PRN (12:23)
--- NOTE | 2016-06-07 12:59 | P.CON ---
Consult Note - . Consult date: 06/07/16 Assessment/Plan:: Lana is seen and evaluated today. She is laying in bed comfortably the only complaint she has is that of essentially suprapubic pain. She reports that she has a persistent nausea that has not gone away however it is almost 24 hours and she last throughout. She has been admitted to the hospital on 2 separate occasions ready this and she has been in 3 emergency room at least 2 other times. Her primary complaint is that of pain in her abdomen. She denies any vaginal bleeding or spotting. At this time and only 9 weeks gestation there really is very little else for us to do. While she may benefit from a vitamin with her nausea levels is unlikely she would keep that down. General surgery has seen her and does not believe she has an appendicitis. Her pain is directly over the pubic bone and a localized fashion. She did have a urinary tract infection about 2 weeks ago for which she took half of or less than half of her antibiotics. It is unclear if her urinary tract infection is still present but is not culturing out due to this antibiotic. Would continue the current IV antibiotics for now. She did have an elevated white blood cell count on admission that is now resolved. She denied any fever/chills. She did have multiple episodes of nausea and vomiting but again this has dissipated. On physical exam currently her vital signs are stable and she is afebrile. Her heart is regular, her lungs are clear. Abdomen is soft there are bowel sounds noted there is no rebound there is no rigidity there is no overall tenderness. Even pushing over the suprapubic region she is not make any sign of pain. With her psychiatric history would restart her BuSpar. Could consider putting her on either Reglan or Zofran and ODT to help with the nausea. However there are risks with every medication and there are studies that do show some risk of anomaly with Zofran. Another consideration would be to try her on vitamin B6 and doxylamine (Unisom) at bedtime. Diclegis is the mediation trade name. This however I would think would need to be cleared with her psychiatrist. She does have an appointment to come and see me in the next couple of weeks for a new OB visit. It would be interesting to see once we way her again if she is losing weight. She also may definitely benefit from a nutritional consultation. At this time I would not change much in the way of her regimen other than restarting her BuSpar and consideration for diclegis or Zofran for the nausea
[2016-06-07 15:12] VITALS: BMI 23.1
[2016-06-07] MEDS: busPIRone HCl 10 MG TAB PO SCH (16:03)
[2016-06-07] MEDS: ONDANSETRON ODT 4 MG TAB PO PRN (16:05)
[2016-06-08] MEDS: busPIRone HCl 10 MG TAB PO SCH ×2 (00:54→08:11)
[2016-06-08] MEDS: ONDANSETRON ODT 4 MG TAB PO PRN ×3 (00:55→15:18)
[2016-06-08] MEDS: HYDROmorphone 1 MG/ML 1 ML SYRINGE IVP PRN ×3 (02:40→15:22)
[2016-06-08] MEDS: SODIUM CHLORIDE 0.9% 1,000 ML IV SCH (04:20)
--- NOTE | 2016-06-08 11:30 | PN ---
DATE OF SERVICE: 06/07/2016 INTERVAL HISTORY: Ms. Hightower is a 25-year-old female admitted to the hospital with complaints of nausea, vomiting, abdominal pain mainly in the suprapubic region. Patient has 9-week intrauterine , currently being treated for urinary tract infection. Recent urine culture showing E. coli on 05/17/16 and also most recent ( ) culture showing Gardnerella vaginalis. Patient currently on treatment with ceftriaxone. ID has been consulted for antibiotic recommendations. Otherwise, the patient is tolerating p.o. diet slowly and still complains of abdominal pain mainly in the suprapubic region. No fever. No chills. No acute overnight issues. The patient was seen by WOODEN FURNITURE POLISHER as well today. Denied any chest pain or short of breath. No nausea or vomiting. Patient does have abdominal pain. No diarrhea. No dysuria. No hematuria. All other 14-point review of systems negative except as above. CURRENT MEDICATIONS: Reviewed. PHYSICAL EXAMINATION: A 25-year-old female lying in bed comfortably. Awake, alert, oriented x3. Appears to be in no apparent distress. VITALS: Blood pressure is 110/78, pulse is 70, respirations 19, temperature afebrile, pulse ox 97% on room air. HEENT: Atraumatic, normocephalic. Neck is supple. No JVD. CVS EXAM: S1, S2 heard. No murmurs, no gallop, no rub. LUNGS: Bilateral air entry is present. No wheezing. No crackles. Nonlabored breathing. ABDOMEN: Soft, mild suprapubic tenderness. No guarding. No rigidity. Bowel sounds are present. STRUCTURAL FITTER: Awake, alert, oriented, x3. No focal neurologic deficits. Cranial nerves grossly intact. EXTREMITIES: No edema. Pulses palpable bilaterally. No clubbing or cyanosis. PSYCHIATRY: Cooperative. LABORATORY DATA: WBC 10.1, hemoglobin 11.8, platelets 296. Sodium 131, potassium 3.6, chloride 105, bicarb is 20. BUN 8, creatinine 0.6. IMPRESSION: 1. Nausea, vomiting, abdominal pain and diarrhea on admission. Possible acute gastroenteritis, improved now. 2. ( ) Gardnerella vaginalis, currently on ceftriaxone. 3. Mild anion gap metabolic acidosis secondary to starvation ketosis, improved now. 4. Hypovolemic hyponatremia. 5. G6, P2, nine-week intrauterine . 6. Anxiety, depression, bipolar disorder. DISCUSSION AND PLAN: The patient will be continued on IV fluids. Continue with ( ) of nausea and vomiting. Continue antibiotics in the form of ceftriaxone. WOODEN FURNITURE POLISHER is following this patient and ID consulted for further evaluation for antibiotic recommendations for urinary tract infection. Please continue with current management and further recommendations based on the clinical course.
[2016-06-08 11:43] VITALS: BP 113/78; PULSE 93; RESP 20; TEMP 98.2
--- NOTE | 2016-06-08 13:19 | P.DS ---
Providers Date of admission: 06/06/16 03:34 Attending physician: Jhony Morel Consults: 06/06/16 17:13 Consult Physician Routine Consulting Provider: Sumit Fernández Consult Reason/Comments: abd pain, vomiting, 8 weeks Do you want consulting provider notified?: Yes 06/07/16 21:57 Consult Physician Routine Consulting Provider: Abdullahi Duarte Consult Reason/Comments: abdominal pain, nausea, garnerella vaginalis Do you want consulting provider notified?: Yes Primary care physician: Wilder Roche [facility] Course: 25-year-old female with the G6 currently in 9 weeks gestation comes in the hospital with complains of right upper quadrant pain and intractable nausea vomiting for 2 days prior to admission. He apparently has had severe vomiting and has not had that severe enough episode in the past pregnancies hence was concerning him to the hospital for ongoing care. Patient was diagnosed with E. coli urinary tract infection after her diagnosis of . There was also some concern over Gardnerella vaginosis on vaginal smear. Patient was admitted to the hospital was started on Rocephin. On the day of discharge patient says that is slightly improved however continues to have some burning on micturition. Patient states to have some discharge however denies having significant itching associated with it. Patient did tolerate diet on the day of discharge. Physical exam Gen. appearance oriented 3 in no distress Neck is supple no JVD Lungs good air entry clear to auscultation no rhonchi or wheezing Heart S1-S2 heard regular rate and rhythm no murmurs appreciated Abdomen is soft nontender no organomegaly bowel sounds are intact Neurologically cranial nerves II-12 grossly intact no focal motor or sensory deficits noted Skin no abnormalities appreciated Discharge diagnosis #1 intrauterine first trimester #2 urinary tract infection with suspected pyelonephritis with E. coli #3 bacterial vaginosis #4 bipolar disorder #5 history of polysubstance use including marijuana Patient is recommended to follow up with Dr. Juan A Moreno Plan - Discharge Summary New Discharge Prescriptions: Cefuroxime [Ceftin] 250 mg PO BID #7 tablet metroNIDAZOLE 0.75% VAGINAL [Metrogel Vaginal] 1 applic VAGINAL BID #1 tube Discharge Medication List busPIRone HCl [Buspar] 10 mg PO BID 06/02/16 [History] Cefuroxime [Ceftin] 250 mg PO BID #7 tablet 06/08/16 [Rx] metroNIDAZOLE 0.75% VAGINAL [Metrogel Vaginal] 1 applic VAGINAL BID #1 tube [Rx] Follow up Appointment(s)/Referral(s): Sumit Fernández DO [Doctor of Osteopathic Medicine] - 1 Week Kaley Hdz MD [Primary Care Provider] - 1-2 days Discharge Disposition: HOME SELF-CARE
--- NOTE | 2016-06-08 16:31 | CONS ---
DATE OF CONSULTATION: 06/08/2016 REASON FOR CONSULTATION: Pyelonephritis. HISTORY OF PRESENT ILLNESS: The patient is a 25-year-old female who was diagnosed with a urinary tract infection about 2 weeks ago, for which the patient was placed on Keflex 500 mg twice a day; however, the patient was taking it only once a day, as it was making her feel sick. She stopped taking it after about a week of the medication. The patient presented to the [facility] ER on 06/06/2016 with the chief complaints of abdominal pain and vomiting. Pain has been mostly in the suprapubic area. The patient does give a history of frequency of urine, burning, and more cloudy urine. Subsequently the patient was evaluated by the ER physician. The patient did have an ultrasound limited on which the appendix was not seen. No solid or cystic mass was identified. Patient did have a UA that was significantly positive. Her white count was elevated. The patient has been started on Rocephin. Urine cultures were done which are so far negative. Unfortunately no blood culture was done. I was asked to see the patient for further recommendations regarding antibiotic therapy. Main symptom remains to be urinary frequency; however, she said that urine is getting better, and no further vomiting. REVIEW OF SYSTEMS: CONSTITUTIONAL: Positive for weakness and chills. EYES: No complaint. ENT: No complaint. RESPIRATORY: No complaint. CARDIOVASCULAR: No complaint. GENITOURINARY: As per HPI. GASTROINTESTINAL: As per HPI. MUSCULOSKELETAL: No complaint. INTEGUMENTARY: No complaint. PSYCHOLOGICAL: No complaint. ENDOCRINE: No complaint. NEUROLOGICAL: No complaint. PAST MEDICAL HISTORY: 1. Recurrent urinary tract infection. 2. Three miscarriages. 3. Anxiety. 4. Bipolar depression. PAST SURGICAL HISTORY: No major surgery. SOCIAL HISTORY: Remote history of smoking. Denies drinking or drug use. FAMILY HISTORY: No pertinent findings were noticed. ALLERGIES: NO KNOWN DRUG ALLERGIES. Medications currently include: 1. Tylenol. 2. BuSpar. 3. Rocephin. 4. Dilaudid. 5. Narcan. 6. Zofran. On examination, blood pressure is 113/78 with a pulse of 93, temperature 98.2. She is 99% on room air. General description is a young female lying in bed in no distress. HEENT EXAMINATION: No pallor or scleral icterus. Oral mucous membrane dry. NECK: Trachea is central. No thyromegaly. LUNGS: Unlabored breathing. Clear to auscultation anteriorly. No wheeze or crackle. HEART: S1, S2. Regular rate and rhythm. ABDOMEN: Soft. No tenderness. EXTREMITIES: No edema of feet. LABS: Hemoglobin is 11.8, white count normalized at 10.1. BUN of 8 with a creatinine of 0.60. DIAGNOSTIC IMPRESSION AND PLAN: Patient admitted to hospital with nausea and vomiting with abdominal pain and did have significantly cloudy urine, burning, more likely representing a urinary tract infection, likely partially treated from her recent p.o. Keflex use. Responding to Rocephin. PLAN: Rocephin will be switched to 1 gram daily. There is no need b.i.d. dosing. As the patient now is improved, she can be able to go home on p.o. Ceftin 500 twice a day for another 10 days to finish the course of therapy. Plan of care was discussed in detail with the attending physician. JUAN
== END 2016-06-08 16:47 | disposition home or self-care (01) ==
LOC: EC 01:54 → 6PED 03:34
PROVIDERS: ADMIT Hospitalist; ATTEND Hospitalist
DX: O23.41 Unspecified infection of urinary tract in pregnancy, first trimester (principal); B96.20 Unspecified Escherichia coli [E. coli] as the cause of diseases classified elsewhere; B96.89 Other specified bacterial agents as the cause of diseases classified elsewhere; Z3A.09 9 weeks gestation of pregnancy; O21.9 Vomiting of pregnancy, unspecified; O99.281 Endocrine, nutritional and metabolic diseases complicating pregnancy, first trimester; E86.1 Hypovolemia; E87.1 Hypo-osmolality and hyponatremia; O99.341 Other mental disorders complicating pregnancy, first trimester; F31.9 Bipolar disorder, unspecified; F41.9 Anxiety disorder, unspecified; O99.611 Diseases of the digestive system complicating pregnancy, first trimester; R10.11 Right upper quadrant pain; R10.31 Right lower quadrant pain; R10.2 Pelvic and perineal pain; R19.7 Diarrhea, unspecified; E87.2 Acidosis; E88.89 Other specified metabolic disorders; Z79.899 Other long term (current) drug therapy; Z87.891 Personal history of nicotine dependence
CPT/HCPCS: 36415; 80053; 80048; 82150; 83690; 85025 ×2; 81001; 87086; 76705; 96365; 96368; 96375 ×2; 99285; G0378 ×3; J1200; J2765; J2405 ×2; J0696 ×3; J1170 ×3; J0131; 96361; 96366; 96376

== ENCOUNTER 2016-07-26 06:07 | Emergency (ER) | payer BC, OTHER ==
[2016-07-26] MEDS ORDERED: ONDANSETRON 4 MG/2 ML VIAL IVP STA (06:27)
[2016-07-26] MEDS ORDERED: DICYCLOMINE 10 MG/ML 2 ML AMP IM STA (06:27)
[2016-07-26] MEDS ORDERED: SODIUM CHLORIDE 0.9% 1,000 ML IV STA ×2 (06:27→08:17)
[2016-07-26] MEDS ORDERED: FAMOTIDINE 20 MG/2 ML VIAL IV STA (06:27)
[2016-07-26] MEDS ORDERED: SODIUM CHLORIDE 0.9% 500 ML IV STA (06:27)
--- NOTE | 2016-07-26 06:29 | ED ---
General Adult HPI - General Source: patient, RN notes reviewed Mode of arrival: wheelchair Limitations: no limitations <Jacob Lombardo - Last Filed: 07/26/16 06:28> <Bj Goodrich - Last Filed: 07/26/16 07:55> - General Chief complaint: Nausea/Vomiting/Diarrhea Stated complaint: vomiting, 16wks Time Seen by Provider: 07/26/16 06:22 - History of Present Illness Initial comments: Patient is a pleasant 25-year-old female presenting to the emergency Department with complaints of nausea and vomiting and diarrhea. Onset of symptoms was yesterday evening. Patient states she feels like she has a stomach flu. Patient has had episodes of vomiting and diarrhea more than she can count. Patient has intermittent abdominal cramping. Patient denies any pelvic cramping. No vaginal bleeding. Patient is approximate 16 weeks . Patient has had ultrasound done that was reported to her as normal. No history of similar symptoms previously. No fever. (Jacob Lombardo) - Related Data Home Medications Medication Instructions Recorded Confirmed Albuterol Inhaler [Ventolin Hfa 2 puff PO RT-Q6H PRN 07/26/16 07/26/16 Inhaler] Allergies Allergy/AdvReac Type Severity Reaction Status Date / Time No Known Allergies Allergy Verified 07/26/16 07:46 Review of Systems ROS Other: All systems not noted in ROS Statement are negative. Constitutional: Denies: fever Eyes: Denies: eye pain ENT: Denies: ear pain Respiratory: Denies: cough Cardiovascular: Denies: chest pain Endocrine: Denies: fatigue Gastrointestinal: Reports: nausea, vomiting, diarrhea Genitourinary: Denies: dysuria Musculoskeletal: Denies: back pain Skin: Denies: rash Neurological: Denies: weakness <Jacob Lombardo - Last Filed: 07/26/16 06:28> ROS Other: All systems not noted in ROS Statement are negative. <Bj Goodrich - Last Filed: 07/26/16 07:55> ROS Statement: Those systems with pertinent positive or pertinent negative responses have been documented in the HPI. Past Medical History Past Medical History: No Reported History Additional Past Medical History / Comment(s): OB history: 3 miscarriages, 1 NVD at term and 1 vag delivery at 31 weeks at [place]. History of Any Multi-Drug Resistant Organisms: None Reported Past Surgical History: No Surgical Hx Reported, Ear Surgery Past Psychological History: Anxiety, Bipolar, Depression Smoking Status: Never smoker Past Alcohol Use History: None Reported Past Drug Use History: None Reported - Past Family History Mother Additional Family Medical History / Comment(s): mom had ruptured bowel. <Jacob Lombardo - Last Filed: 07/26/16 06:28> General Exam Limitations: no limitations General appearance: alert, in no apparent distress Head exam: Present: atraumatic Eye exam: Present: normal appearance, PERRL ENT exam: Present: normal oropharynx Neck exam: Present: normal inspection Respiratory exam: Present: normal lung sounds bilaterally. Absent: respiratory distress Cardiovascular Exam: Present: regular rate, normal rhythm Expanded Peripheral pulses: 2+: Dorsalis Pedis (R), Dorsalis Pedis (L) GI/Abdominal exam: Present: soft, other (mild suprapubic fullness consistent with gravid state). Absent: tenderness, guarding, rebound, rigid Extremities exam: Present: normal inspection Neurological exam: Present: alert Psychiatric exam: Present: anxious Skin exam: Present: normal color <Jacob Lombardo - Last Filed: 07/26/16 06:28> General appearance: alert, in no apparent distress Head exam: Present: atraumatic, normocephalic, normal inspection Eye exam: Present: normal appearance, PERRL, EOMI. Absent: scleral icterus, conjunctival injection, periorbital swelling ENT exam: Present: normal exam, mucous membranes moist Neck exam: Present: normal inspection. Absent: tenderness, meningismus, lymphadenopathy Respiratory exam: Present: normal lung sounds bilaterally. Absent: respiratory distress, wheezes, rales, rhonchi, stridor Cardiovascular Exam: Present: regular rate, normal rhythm, normal heart sounds. Absent: systolic murmur, diastolic murmur, rubs, gallop, clicks GI/Abdominal exam: Present: soft, normal bowel sounds. Absent: distended, tenderness, guarding, rebound, rigid Extremities exam: Present: normal inspection, full ROM, normal capillary refill. Absent: tenderness, pedal edema, joint swelling, calf tenderness Back exam: Present: normal inspection Neurological exam: Present: alert, oriented X3, CN II-XII intact Psychiatric exam: Present: normal affect, normal mood Skin exam: Present: warm, dry, intact, normal color. Absent: rash <Bj Goodrich - Last Filed: 07/26/16 07:55> Course <Jacob Lombardo - Last Filed: 07/26/16 06:28> <Bj Goodrich - Last Filed: 07/26/16 07:55> Vital Signs 07/26/16 07/26/16 06:10 07:35 Temperature 97.4 F L 97.3 F L Pulse Rate 68 63 Respiratory 28 H 16 Rate Blood Pressure 129/86 99/59 O2 Sat by Pulse 98 100 Oximetry - Reevaluation(s) Reevaluation #1: 07/26/16 07:54 At this time patient symptoms are much improved (Bj Goodrich) Medical Decision Making <Jacob Lombardo - Last Filed: 07/26/16 06:28> - Lab Data Result diagrams: 07/26/16 06:35 <Bj Goodrich - Last Filed: 07/26/16 07:55> - Medical Decision Making 25. Ear with nausea vomiting of , liquids are normal urine is negative. Patient's vital signs are improved at this time, rehydrated, feeling comfortable and will be discharged home (Bj Goodrich) - Lab Data Lab Results 07/26/16 Range/Units 06:35 WBC 18.8 H (3.8-10.6) k/uL RBC 4.16 (3.80-5.40) m/uL Hgb 13.3 (11.4-16.0) gm/dL Hct 40.1 (34.0-46.0) % MCV 96.5 (80.0-100.0) fL MCH 31.9 (25.0-35.0) pg MCHC 33.1 (31.0-37.0) g/dL RDW 13.9 (11.5-15.5) % Plt Count 294 (150-450) k/uL Neutrophils % 94 % Lymphocytes % 4 % Monocytes % 2 % Eosinophils % 0 % Basophils % 0 % Neutrophils # 17.6 H (1.3-7.7) k/uL Lymphocytes # 0.7 L (1.0-4.8) k/uL Monocytes # 0.3 (0-1.0) k/uL Eosinophils # 0.1 (0-0.7) k/uL Basophils # 0.0 (0-0.2) k/uL Disposition <Jacob Lombardo - Last Filed: 07/26/16 06:28> <Bj Goodrich - Last Filed: 07/26/16 07:55> Clinical Impression: Hyperemesis gravidarum, Vomiting affecting Disposition: HOME SELF-CARE Condition: Good Instructions: Acute Nausea and Vomiting (ED) Referrals: Kaley Hdz MD [Primary Care Provider] - 1-2 days
[2016-07-26 07:05] LABS: Basophils % (A) 0 %; CH 32.7; CHCM 34.1; Eosinophils # (A) 0.1 k/uL (0-0.7); Eosinophils % (A) 0 %; HCT 40.1 % (34.0-46.0); HDW 2.15; HGB 13.3 gm/dL (11.4-16.0); Luc % (Auto) 1; Lymphocytes # (A) 0.7 k/uL (1.0-4.8); Lymphocytes % (A) 4 %; MCH 31.9 pg (25.0-35.0); MCHC 33.1 g/dL (31.0-37.0); MCV 96.5 fL (80.0-100.0); Mean Platelet Volume 6.9; Monocytes # (A) 0.3 k/uL (0-1.0); Monocytes % (A) 2 %; Neutrophils # (A) 17.6 k/uL (1.3-7.7); Neutrophils % (A) 94 %; RBC 4.16 m/uL (3.80-5.40); RDW 13.9 % (11.5-15.5); WBC 18.8 k/uL (3.8-10.6); WBC (Perox) 18.87
[2016-07-26 07:29] LABS: ALT 25 U/L (9-52); AST 20 U/L (14-36); Alkaline Phosphatase 57 U/L (38-126); Amylase 73 U/L (30-110); Anion Gap 11 mmol/L; Blood Urea Nitrogen 7 mg/dL (7-17); Calcium 9.3 mg/dL (8.4-10.2); Carbon Dioxide 16 mmol/L (22-30); Chloride 108 mmol/L (98-107); Glucose 149 mg/dL (74-99); Non-African American GFR(MDRD) >60 (>60 ml/min/1.73 sqM); Potassium 3.8 mmol/L (3.5-5.1); Sodium 135 mmol/L (137-145); Total Bilirubin 0.6 mg/dL (0.2-1.3); Total Protein 6.7 g/dL (6.3-8.2)
[2016-07-26 07:58] LABS: Appearance,Urine Cloudy (Clear); Bilirubin,Urine Negative (Negative); Glucose,Urine (UA) 3+ (Negative); Leukocyte Esterase,Urine Small (Negative); Mucus,Urine Few /hpf; Nitrite,Urine Negative (Negative); PH, Urine 5.5 (5.0-8.0); Particle Count 12360; Protein,Urine 1+ (Negative); Specific Gravity,Urine 1.025 (1.001-1.035); Squamous Epithelial Cell,Urine 9 /hpf (0-4); UA Billing (MACRO vs. MICRO) MICRO; Urobilinogen,Urine <2.0 mg/dL (<2.0); WBC,Urine 7 /hpf (0-5)
[2016-07-26 08:08] LABS: HCG,Quantitative Serum 40088.3 mIU/mL
[2016-07-26 08:11] LABS: Ketones,Urine 4+ (Negative)
[2016-07-26] MEDS ORDERED: diphenhydrAMINE 50 MG/ML 1 ML VIAL IVP STA (08:16)
[2016-07-26] MEDS ORDERED: PYRIDOXINE 100 MG/ML 1 ML VIAL IVP STA (08:22)
[2016-07-26 10:14] VITALS: BP 95/56; PULSE 86; RESP 18; TEMP 98.5
== END 2016-07-26 10:12 | disposition home or self-care (01) ==
LOC: EC 06:07
DX: O21.0 Mild hyperemesis gravidarum (principal); O99.89 Other specified diseases and conditions complicating pregnancy, childbirth and the puerperium; R19.7 Diarrhea, unspecified; R10.9 Unspecified abdominal pain; Z3A.16 16 weeks gestation of pregnancy
CPT/HCPCS: 99284; 96374; 96375 ×3; 96361 ×3; 96372; 36415; 80053; 82150; 83690; 85025; 81001; 84702; J1200; J0500; J3415; J2405

== ENCOUNTER 2016-10-07 21:32 | Emergency (ER) | payer OTHER ==
[2016-10-07 21:37] VITALS: RESP 18
--- NOTE | 2016-10-07 22:30 | ED ---
General Adult HPI - General Chief complaint: Chest Pain Stated complaint: 27 weeks /Rapid Heartbeat Time Seen by Provider: 10/07/16 21:56 Source: patient, family, RN notes reviewed, old records reviewed Mode of arrival: ambulatory Limitations: no limitations - History of Present Illness Initial comments: Chief complaint history of present illness is a 26-year-old female who is having some palpitations today several seconds occasionally 10 minutes. The rate was not captured. Around emergency room the patient had EKG done which showed normal sinus rhythm rate 90. Patient was also over [place] today because she has high risk of . She is 26 weeks along. She's been having some contractions yesterday and today she was examined and the ultrasound was performed on the baby and the patient was discharged. Patient's otherwise not complaining of chest pain. She does report that she has anxiety. - Related Data Home Medications Medication Instructions Recorded Confirmed Pnv,Calcium 72/Iron/Folic Acid 1 tab PO HS 10/07/16 10/07/16 [ Plus Tablet] Allergies Allergy/AdvReac Type Severity Reaction Status Date / Time No Known Allergies Allergy Verified 10/07/16 21:56 Review of Systems ROS Statement: Those systems with pertinent positive or pertinent negative responses have been documented in the HPI. Review of systems. No headache or visual acuity changes no chest pain on again off again palpitations. Occasional contractions but that was evaluated by her high PATIENT SERVICES COORDINATOR [place] today. She was told to come the emergency room if the palpitations were to persist. No associated chest pain no nausea no vomiting. All systems were reviewed past medical problems significant for asthma. Patient reports no other health problems. This is her fifth she is to be wheezing at home with 2 miscarriages. She does have asthma she does smoke and smokes marijuana prior to . Smoke cigarettes now because of anxiety strongly encouraged to stop. Surgeries ear tubes. Family history heart disease and her mother and grandparents. She denies any ALLERGIES. As noted above she smokes denies alcohol use. ROS Other: All systems not noted in ROS Statement are negative. Past Medical History Past Medical History: Asthma Additional Past Medical History / Comment(s): OB history: 3 miscarriages, 1 NVD at term and 1 vag delivery at 31 weeks at [place]. History of Any Multi-Drug Resistant Organisms: None Reported Past Surgical History: Ear Surgery Past Psychological History: Anxiety, Bipolar, Depression Smoking Status: Current every day smoker Past Alcohol Use History: None Reported Past Drug Use History: None Reported - Past Family History Mother Additional Family Medical History / Comment(s): mom had ruptured bowel. General Exam - General Exam Comments Initial Comments: General: The patient is awake and alert, in no distress, and does not appear acutely ill. Patient has had on-again off-again palpitations today. Her vital signs now are temperature 96.9 pulse 91 respiratory rate 18 pulse ox 99% room air blood pressure 125/78 Eye: Pupils are equal, round and reactive to light, extra-ocular movements are intact ; there is normal conjunctiva bilaterally. Ears, nose, mouth and throat: There are moist mucous Neck: The neck is supple, there is no tenderness Cardiovascular: There is a regular rate and rhythm. No murmur, rub or gallop is appreciated. Respiratory: Lungs are clear to auscultation, respirations are non-labored, breath sounds are equal. No wheezes, stridor, rales, or rhonchi. Gastrointestinal: Soft, non-distended, non-tender abdomen without masses or organomegaly noted. There is no rebound or guarding present. No CVA tenderness. Bowel sounds are unremarkable. 26 weeks . She was evaluated by her OB and [place] today. She has had occasional contractions. I released her with follow-up. Back: There is no tenderness to palpation in the midline. There is no obvious deformity. No rashes noted. Musculoskeletal: Normal ROM, no tenderness, There is no pedal edema. There is no calf tenderness or swelling. Sensation intact. Pulses equal bilaterally 2+. Neurological: No neuro deficits Skin: Skin is warm and dry and no rashes or lesions are noted. Multiple tattoos Limitations: no limitations Course Vital Signs 10/07/16 10/07/16 10/08/16 21:33 23:16 00:04 Temperature 96.9 F L Pulse Rate 91 81 81 Respiratory 18 18 18 Rate Blood Pressure 125/78 91/54 118/67 O2 Sat by Pulse 99 97 98 Oximetry EKG Findings - EKG Comments: EKG Findings:: EKG was done at 2154 showing normal sinus rhythm. Rate 90 [place] interval is 124 QRS 88 QT 354 QTc [address]. no acute ST elevation, no ectopy. Dr. Cochran Medical Decision Making - Medical Decision Making Medical decision making patient's white count 14 hemoglobin 11.5 medical 33.6. Potassium is 4.2 with a BUN 17 creatinine 0.5 and GFR greater than 60. Glucose 79. TSH normal 1.26. She received half liter of fluids feeling better blood pressure 100/70. Heart rate 71. States he is hungry wants to go home. Patient be advised to follow- up with her family physician, PATIENT SERVICES COORDINATOR etc. patient was taught how to take her own pulse. This way she'll be able to report a number on her next visit if it happens again. - Lab Data Result diagrams: 10/07/16 22:05 10/07/16 22:05 Lab Results 10/07/16 10/07/16 Range/Units 22:05 22:05 WBC 14.0 H (3.8-10.6) k/uL RBC 3.51 L (3.80-5.40) m/uL Hgb 11.5 (11.4-16.0) gm/dL Hct 33.6 L (34.0-46.0) % MCV 95.9 (80.0-100.0) fL MCH 32.8 (25.0-35.0) pg MCHC 34.2 (31.0-37.0) g/dL RDW 13.9 (11.5-15.5) % Plt Count 303 (150-450) k/uL Neutrophils % 73 % Lymphocytes % 19 % Monocytes % 5 % Eosinophils % 1 % Basophils % 0 % Neutrophils # 10.2 H (1.3-7.7) k/uL Lymphocytes # 2.7 (1.0-4.8) k/uL Monocytes # 0.8 (0-1.0) k/uL Eosinophils # 0.1 (0-0.7) k/uL Basophils # 0.0 (0-0.2) k/uL Sodium 137 (137-145) mmol/L Potassium 4.2 (3.5-5.1) mmol/L Chloride 106 (98-107) mmol/L Carbon Dioxide 23 (22-30) mmol/L Anion Gap 8 mmol/L BUN 7 (7-17) mg/dL Creatinine 0.50 L (0.52-1.04) mg/dL Est GFR (MDRD) Af Amer >60 (>60 ml/min/1.73 sqM) Est GFR (MDRD) Non-Af >60 (>60 ml/min/1.73 sqM) Glucose 79 (74-99) mg/dL Calcium 9.2 (8.4-10.2) mg/dL Total Bilirubin 0.2 (0.2-1.3) mg/dL AST 17 (14-36) U/L ALT 29 (9-52) U/L Alkaline Phosphatase 74 (38-126) U/L Total Protein 6.2 L (6.3-8.2) g/dL Albumin 3.5 (3.5-5.0) g/dL TSH 1.260 (0.465-4.680) mIU/L Disposition Clinical Impression: Palpitations Disposition: HOME SELF-CARE Condition: Stable Instructions: Palpitations (ED) Additional Instructions: Check her own pulse if hemophilia heart rate is fast. Follow-up with your family physician and her PATIENT SERVICES COORDINATOR. Referrals: Kaley Hdz MD [Primary Care Provider] - 1-2 days Time of Disposition: 01:32
[2016-10-07 22:36] LABS: Basophils % (A) 0 %; CH 32.5; CHCM 34.1; Eosinophils # (A) 0.1 k/uL (0-0.7); Eosinophils % (A) 1 %; HCT 33.6 % (34.0-46.0); HDW 2.48; HGB 11.5 gm/dL (11.4-16.0); Luc # (Auto) 0.27; Luc % (Auto) 2; Lymphocytes # (A) 2.7 k/uL (1.0-4.8); Lymphocytes % (A) 19 %; MCH 32.8 pg (25.0-35.0); MCHC 34.2 g/dL (31.0-37.0); MCV 95.9 fL (80.0-100.0); Mean Platelet Volume 6.9; Monocytes # (A) 0.8 k/uL (0-1.0); Monocytes % (A) 5 %; Neutrophils # (A) 10.2 k/uL (1.3-7.7); Neutrophils % (A) 73 %; RBC 3.51 m/uL (3.80-5.40); RDW 13.9 % (11.5-15.5); WBC (Perox) 13.46
[2016-10-07 22:43] LABS: ALT 29 U/L (9-52); AST 17 U/L (14-36); Alkaline Phosphatase 74 U/L (38-126); Anion Gap 8 mmol/L; Blood Urea Nitrogen 7 mg/dL (7-17); Calcium 9.2 mg/dL (8.4-10.2); Carbon Dioxide 23 mmol/L (22-30); Chloride 106 mmol/L (98-107); Glucose 79 mg/dL (74-99); Non-African American GFR(MDRD) >60 (>60 ml/min/1.73 sqM); Potassium 4.2 mmol/L (3.5-5.1); Sodium 137 mmol/L (137-145); Total Bilirubin 0.2 mg/dL (0.2-1.3); Total Protein 6.2 g/dL (6.3-8.2)
[2016-10-08 01:46] VITALS: BP 107/60; PULSE 78; TEMP 98.7
== END 2016-10-08 01:46 | disposition home or self-care (01) ==
LOC: EC 21:32
DX: O99.89 Other specified diseases and conditions complicating pregnancy, childbirth and the puerperium (principal); R00.2 Palpitations; O99.332 Smoking (tobacco) complicating pregnancy, second trimester; F17.200 Nicotine dependence, unspecified, uncomplicated; Z3A.26 26 weeks gestation of pregnancy; Z79.899 Other long term (current) drug therapy
CPT/HCPCS: 36415; 80053; 84443; 85025; 93005; 99285

== ENCOUNTER → 2016-10-22 | Outpatient (CLI) | payer SELFPAY ==
[2016-10-22 13:06] LABS: CH 32.8; CHCM 33.2; HCT 34.5 % (34.0-46.0); HDW 2.51; HGB 11.2 gm/dL (11.4-16.0); MCH 32.4 pg (25.0-35.0); MCHC 32.5 g/dL (31.0-37.0); MCV 99.4 fL (80.0-100.0); Mean Platelet Volume 7.6; RBC 3.47 m/uL (3.80-5.40); RDW 14.4 % (11.5-15.5); WBC 13.5 k/uL (3.8-10.6)
== END | disposition home or self-care (01) ==
LOC: LABWHC1 12:18
PROVIDERS: ATTEND Obstetrics & Gynecology
DX: Z34.83 Encounter for supervision of other normal pregnancy, third trimester (principal)
CPT/HCPCS: 36415; 82950; 85027

== ENCOUNTER 2016-10-25 16:15 | Outpatient (CLI) | payer OTHER ==
[2016-10-25 17:28] VITALS: BP 121/70; PULSE 115; RESP 16; TEMP 96.6
[2016-10-25] MEDS ORDERED: BETAMET ACET-BETAMETH SOD PHOS 6 MG/ML VIAL IM SCH (17:45)
--- NOTE | 2017-01-11 08:47 | P.MSEPDOC ---
Presenting Problems - Arrival Data Date of Arrival on Unit: 10/25/16 Time of Arrival on Unit: 16:15 Mode of Transport: Ambulatory - Complaint OB-Reason for Admission/Chief Complaint: Possible Onset of Labor, Rule Out PROM , Observation/Evaluation Medical History - Information : 5 Para: 2 Term: 1 : 1 Abortions: Spontaneous or Elective: 2 Number of Living Children: 2 - Gestational Age Gestational Age by BARON (wks/days): 29 Weeks and 4 Days - History Complications: Prior , Smoker Review of Systems - Review of Systems Constitutional: No problems Breast: No problems ENT: No problems Cardiovascular: No problems Respiratory: No problems Gastrointestinal: No problems Genitourinary: No problems Musculoskeletal: No problems Neurological: No problems Skin: No problems Vital Signs - Temperature Temperature: 96.6 F Temperature Source: Temporal Artery Scan - Pulse Right Brachial Pulse Rate: 115 Pulse Assessment Method: Automatic Cuff - Respirations Respiratory Rate: 16 Oxygen Delivery Method: Room Air - Blood Pressure Right Arm Blood Pressure: 121/70 Blood Pressure Mean: 87 Blood Pressure Source: Automatic Cuff Medical Screen Scoring (Pre) - Cervical Exam Dilation: 1-3 cm = 1 Membranes: Intact - Uterine Contractions Frequency: N/A, > 5 minutes apart = 1 Intensity: N/A - Maternal Vital Signs Maternal Temperature: N/A Maternal Blood Pressure: N/A Signs of Preeclampsia: N/A Maternal Respirations: N/A - Maternal Trauma Maternal Trauma: N/A - Assessment Baseline FHR: 130 Heart Rate - NICHD Category: Category I (Normal) = 0 NST: Reactive Position: N/A Station: N/A - Total Score Total Score (Pre): 2 - Level of Risk Level of Risk: Low (0-5) Physician Notification (Pre) - Physician Notified Physician Notified Date: 10/25/16 Physician Notified Time: 17:28 New Order Received: Yes Physician Notification (Post) - Physician Notified Physician Notified Date: 10/25/16 Physician Notified Time: 17:35 Spoke With: Jolene New Order Received: Yes Disposition - Disposition OB Disposition: Discharge to home, Written follow up instructions reviewed Discharge Date: 10/25/16 Discharge Time: 18:15 I agree with the RN Medical Screening Exam: Yes Risk & Benefit of care provided described in d/c instruction: Yes Diagnosis: FALSE LABOR BEFORE 37 COMPLETED WEEKS OF GEST, SECOND TRI
== END 2016-10-25 18:15 | disposition home or self-care (01) ==
LOC: FBPOP 16:15
PROVIDERS: ATTEND Obstetrics & Gynecology
DX: O47.03 False labor before 37 completed weeks of gestation, third trimester (principal); Z3A.29 29 weeks gestation of pregnancy
CPT/HCPCS: 59025; 96372; 84112; 82731; G0463; J0702; 99214

== ENCOUNTER → 2016-10-29 | Outpatient (CLI) | payer OTHER ==
[2016-10-29 13:33] LABS: Glucose 3 Hour, Gest 91 mg/dL
== END | disposition home or self-care (01) ==
LOC: LABWHC1 09:24
PROVIDERS: ATTEND Obstetrics & Gynecology
DX: O99.810 Abnormal glucose complicating pregnancy (principal); Z3A.00 Weeks of gestation of pregnancy not specified
CPT/HCPCS: 36415; 82951; 82952

== ENCOUNTER 2016-11-25 17:35 | Observation (INO) | payer OTHER ==
[2016-11-25] MEDS: LACTATED RINGERS 1,000 ML IV SCH ×3 (18:30→20:52)
[2016-11-25 18:54] VITALS: BP 124/72; PULSE 95; RESP 16; TEMP 98.6
[2016-11-25] MEDS ORDERED: ACETAMINOPHEN TAB 325 MG TAB PO PRN (22:11)
[2016-11-25] MEDS ORDERED: diphenhydrAMINE 25 MG CAP PO PRN (22:15)
[2016-11-25 23:14] VITALS: BMI 28.2
[2016-11-26] MEDS: LACTATED RINGERS 1,000 ML IV SCH ×2 (03:18→07:49)
--- NOTE | 2016-11-26 08:52 | P.HPOB ---
History of Present Illness H&P Date: 11/26/16 Chief Complaint: Intrauterine at 34 weeks: labor Lana is seen and evaluated and admitted for observational status due to contractions. Following IV hydration contractions dissipated. She made no cervical change. She was seen in the office earlier in the week and status and 1/2 cm she is still dilated to approximate 1/2 cm. heart tones were reactive and she is feeling well at this time. She was observed through the night with Dr. Javier made no cervical change and is previously received steroid injections therefore we will continue with observational care through the night with expectation that she'll go home the morning if no further changes are noted. Should she progress in labor however due to her early status she will be transferred. Past Medical History Past Medical History: Asthma Additional Past Medical History / Comment(s): OB history: 3 miscarriages, 1 NVD at term and 1 vag delivery at 31 weeks at [place]. History of Any Multi-Drug Resistant Organisms: None Reported Past Surgical History: Ear Surgery Past Anesthesia/Blood Transfusion Reactions: No Reported Reaction Past Psychological History: Anxiety, Bipolar, Depression Smoking Status: Current every day smoker Past Alcohol Use History: None Reported Past Drug Use History: None Reported - Past Family History Mother Additional Family Medical History / Comment(s): mom had ruptured bowel. Medications and Allergies Home Medications Medication Instructions Recorded Confirmed Type No Known Home Medications [No 11/25/16 11/25/16 History Known Home Medications] Allergies Allergy/AdvReac Type Severity Reaction Status Date / Time No Known Allergies Allergy Verified 11/25/16 18:46 Exam Osteopathic Statement: *. No significant issues noted on an osteopathic structural exam other than those noted in the History and Physical/Consult. - Vital Signs Vital signs: Vital Signs Temp Pulse Resp BP Pulse Ox 11/25/16 18:05 98.6 F 95 16 124/72 99 Intake and Output 11/25/16 11/26/16 11/26/16 22:59 06:59 14:59 Intake Total 1999 Balance 1999 Intake: IV 2000 Lactated Ringers 1,000 ml 2000 @ 125 mls/hr IV .Q8H LIONEL Rx#:[id number] Other: # Voids 2 0 Weight 70.085 kg
--- NOTE | 2016-11-26 08:53 | P.DS ---
Providers Date of admission: 11/25/16 20:22 Expected date of discharge: 11/26/16 Attending physician: Lucia Quintero Primary care physician: Stated None Hospital Course: Lana is doing very well this morning. She is made no cervical change through the night and I did check her myself. Her vital signs are currently stable and she is afebrile. She denies any contractions or pain at all. We'll plan discharged home today with follow-up early next week with me. She is aware to return should she have contractions greater than 5-6 and 1 hour. She is currently dilated to 1/2 cm 60% effaced -3 station. Assessment intrauterine 34 weeks. labor. Plan modified bedrest at home. Patient Condition at Discharge: Good Plan - Discharge Summary New Discharge Prescriptions: No Action No Known Home Medications [No Known Home Medications] Discharge Medication List No Known Home Medications [No Known Home Medications] 11/25/16 [History]
== END 2016-11-26 09:49 | disposition home or self-care (01) ==
LOC: FBPOP 17:35 → 4FBP 20:22
PROVIDERS: ADMIT Obstetrics & Gynecology; ATTEND Obstetrics & Gynecology
DX: O60.03 Preterm labor without delivery, third trimester (principal); Z3A.34 34 weeks gestation of pregnancy; O99.333 Smoking (tobacco) complicating pregnancy, third trimester; F17.200 Nicotine dependence, unspecified, uncomplicated
CPT/HCPCS: 59025; 96360; 96361 ×2; 84112; 82731; G0463; G0378 ×2; 99214

== ENCOUNTER 2016-12-09 13:03 | Outpatient (CLI) | payer OTHER ==
[2016-12-09 15:11] VITALS: BP 117/78; PULSE 94; RESP 18; TEMP 98.2
--- NOTE | 2017-01-11 08:57 | P.MSEPDOC ---
Presenting Problems - Arrival Data Date of Arrival on Unit: 12/09/16 Time of Arrival on Unit: 13:03 Mode of Transport: Ambulatory - Complaint OB-Reason for Admission/Chief Complaint: Possible Onset of Labor Medical History - Information : 5 Para: 2 Term: 1 : 1 Abortions: Spontaneous or Elective: 2 Number of Living Children: 2 - Gestational Age Gestational Age by BARON (wks/days): 36 Weeks and 0 Days Review of Systems - Review of Systems Constitutional: No problems Breast: No problems ENT: No problems Cardiovascular: No problems Respiratory: No problems Gastrointestinal: No problems Genitourinary: No problems Musculoskeletal: No problems Neurological: No problems Skin: No problems Vital Signs - Temperature Temperature: 98.2 F Temperature Source: Oral - Pulse Brachial Pulse Rate: 94 Pulse Assessment Method: Automatic Cuff - Respirations Respiratory Rate: 18 Oxygen Delivery Method: Room Air O2 Sat by Pulse Oximetry: 99 - Blood Pressure Right Arm Blood Pressure: 117/78 Blood Pressure Mean: 91 Blood Pressure Source: Automatic Cuff Medical Screen Scoring (Pre) - Cervical Exam Dilation: 1-3 cm = 1 Effacement: More than 50% = 2 Membranes: Intact - Uterine Contractions Frequency: > 5 minutes apart = 1 Duration: > 40 seconds = 2 - Maternal Vital Signs Maternal Temperature: N/A Maternal Blood Pressure: N/A Signs of Preeclampsia: N/A Maternal Respirations: N/A - Maternal Trauma Maternal Trauma: N/A - Assessment Baseline FHR: 130 Heart Rate - NICHD Category: Category I (Normal) = 0 - Total Score Total Score (Pre): 6 - Level of Risk Level of Risk: Medium (6-9) Physician Notification (Pre) - Physician Notified Physician Notified Date: 12/09/16 Physician Notified Time: 14:20 Physician/Practitioner Notifed:: dr reich Spoke With: dr reich New Order Received: Yes - Notification Comment Comment: order to discharge home with instructions Disposition - Disposition OB Disposition: Triage, Discharge to home, Written follow up instructions reviewed Discharge Date: 12/09/16 Discharge Time: 14:30 I agree with the RN Medical Screening Exam: Yes Risk & Benefit of care provided described in d/c instruction: Yes Diagnosis: FALSE LABOR BEFORE 37 COMPLETED WEEKS OF GEST, THIRD TRI
== END 2016-12-09 14:30 | disposition home or self-care (01) ==
LOC: FBPOP 13:03
PROVIDERS: ATTEND Obstetrics & Gynecology
DX: O47.03 False labor before 37 completed weeks of gestation, third trimester (principal); Z3A.36 36 weeks gestation of pregnancy
CPT/HCPCS: 59025; G0463; 99213

== ENCOUNTER 2017-12-22 08:24 | Emergency (ER) | payer OTHER ==
[2017-12-22 08:29] VITALS: TEMP 97.3
[2017-12-22] MEDS ORDERED: SODIUM CHLORIDE 0.9% 2,000 ML IV STA (08:33)
[2017-12-22] MEDS ORDERED: ONDANSETRON 4 MG/2 ML VIAL IVP STA (08:33)
[2017-12-22] MEDS ORDERED: diphenhydrAMINE 50 MG/ML 1 ML VIAL IVP STA ×2 (08:33→09:58)
[2017-12-22] MEDS ORDERED: FAMOTIDINE 20 MG/2 ML VIAL IV STA (08:34)
--- NOTE | 2017-12-22 08:35 | ED ---
Nausea/Vomiting/Diarrhea HPI - General Chief complaint: Nausea/Vomiting/Diarrhea Stated complaint: VOMITING Time Seen by Provider: 12/22/17 08:30 Source: patient, RN notes reviewed Mode of arrival: ambulatory Limitations: no limitations - History of Present Illness Initial comments: 27-year-old female presents emergency Department chief complaint nausea vomiting. Patient states symptoms started at 3 AM. Patient did admit that she went out drinking last night but states that she does not feel this is from drinking. Patient states she is not and states that she currently is on her menstrual cycle. Denies any diarrhea or constipation issues. Patient states that her vomiting is bilious at this time. Patient denies any chest pain , shortness breath. Patient does not complain of any localized abdominal pain she states her abdomen does hurt in general. - Related Data Previous Rx's Medication Instructions Recorded Ondansetron Odt [Zofran Odt] 4 mg PO Q8HR PRN #10 tab 12/22/17 Allergies Allergy/AdvReac Type Severity Reaction Status Date / Time No Known Allergies Allergy Verified 12/22/17 08:45 Review of Systems ROS Statement: Those systems with pertinent positive or pertinent negative responses have been documented in the HPI. ROS Other: All systems not noted in ROS Statement are negative. Past Medical History Past Medical History: Asthma Additional Past Medical History / Comment(s): OB history: 3 miscarriages, 1 NVD at term and 1 vag delivery at 31 weeks at [place]. History of Any Multi-Drug Resistant Organisms: None Reported Past Surgical History: Ear Surgery Past Anesthesia/Blood Transfusion Reactions: No Reported Reaction Past Psychological History: Anxiety, Bipolar, Depression Smoking Status: Current every day smoker Past Alcohol Use History: Occasional Past Drug Use History: Marijuana - Past Family History Mother Additional Family Medical History / Comment(s): mom had ruptured bowel. General Exam Limitations: no limitations General appearance: alert, in no apparent distress Head exam: Present: atraumatic, normocephalic, normal inspection Eye exam: Present: normal appearance, PERRL, EOMI. Absent: scleral icterus, conjunctival injection, periorbital swelling Neck exam: Present: normal inspection, full ROM. Absent: tenderness, meningismus, lymphadenopathy Respiratory exam: Present: normal lung sounds bilaterally. Absent: respiratory distress, wheezes, rales, rhonchi, stridor Cardiovascular Exam: Present: regular rate, normal rhythm, normal heart sounds. Absent: systolic murmur, diastolic murmur, rubs, gallop, clicks GI/Abdominal exam: Present: soft, tenderness (Mild diffuse), normal bowel sounds. Absent: distended, guarding, rebound, rigid Back exam: Absent: CVA tenderness (R), CVA tenderness (L) Skin exam: Present: warm, dry, intact, normal color. Absent: rash Course Vital Signs 12/22/17 12/22/17 08:26 08:36 Temperature 97.3 F L Pulse Rate 60 Respiratory 20 Rate Blood Pressure 136/102 132/7 O2 Sat by Pulse 99 Oximetry Medical Decision Making - Medical Decision Making 27-year-old female presented emergency Department for nausea vomiting. Patient symptoms may related related to alcohol use last night. Patient had no diarrhea. Patient has normal lab work was hydrated in feels improved after medications. Patient we discharged at this time we discussed return parameters. Patient did have noted hematuria though this is related to her menstrual cycle. - Lab Data Result diagrams: 12/22/17 08:49 12/22/17 08:49 Lab Results 12/22/17 12/22/17 12/22/17 Range/Units 08:49 08:49 10:50 WBC 11.8 H (3.8-10.6) k/uL RBC 4.33 (3.80-5.40) m/uL Hgb 13.7 (11.4-16.0) gm/dL Hct 41.5 (34.0-46.0) % MCV 95.7 (80.0-100.0) fL MCH 31.7 (25.0-35.0) pg MCHC 33.1 (31.0-37.0) g/dL RDW 13.1 (11.5-15.5) % Plt Count 279 (150-450) k/uL Neutrophils % 86 % Lymphocytes % 10 % Monocytes % 3 % Eosinophils % 0 % Basophils % 0 % Neutrophils # 10.1 H (1.3-7.7) k/uL Lymphocytes # 1.2 (1.0-4.8) k/uL Monocytes # 0.4 (0-1.0) k/uL Eosinophils # 0.0 (0-0.7) k/uL Basophils # 0.0 (0-0.2) k/uL Sodium 139 (137-145) mmol/L Potassium 3.7 (3.5-5.1) mmol/L Chloride 107 (98-107) mmol/L Carbon Dioxide 25 (22-30) mmol/L Anion Gap 7 mmol/L BUN 11 (7-17) mg/dL Creatinine 0.63 (0.52-1.04) mg/dL Est GFR (CKD-EPI)AfAm >90 (>60 ml/min/1.73 sqM) Est GFR (CKD-EPI)NonAf >90 (>60 ml/min/1.73 sqM) Glucose 130 H (74-99) mg/dL Calcium 9.3 (8.4-10.2) mg/dL Total Bilirubin 0.3 (0.2-1.3) mg/dL AST 21 (14-36) U/L ALT 20 (9-52) U/L Alkaline Phosphatase 53 (38-126) U/L Total Protein 7.0 (6.3-8.2) g/dL Albumin 4.3 (3.5-5.0) g/dL Amylase 64 (30-110) U/L Lipase 40 (23-300) U/L Urine Color Yellow Urine Appearance Cloudy H (Clear) Urine pH 6.5 (5.0-8.0) Ur Specific [place] 1.023 (1.001-1.035) Urine Protein Trace H (Negative) Urine Glucose (UA) Negative (Negative) Urine Ketones Trace H (Negative) Urine Blood Moderate H (Negative) Urine Nitrite Positive H (Negative) Urine Bilirubin Negative (Negative) Urine Urobilinogen 2.0 (<2.0) mg/dL Ur Leukocyte Esterase Small H (Negative) Urine RBC 30 H (0-5) /hpf Urine WBC 5 (0-5) /hpf Ur Squamous Epith Cells 2 (0-4) /hpf Amorphous Sediment Occasional H (None) /hpf Urine Bacteria Few H (None) /hpf Urine Mucus Many H (None) /hpf Urine HCG, Qual (Not Detectd) 12/22/17 Range/Units 10:50 WBC (3.8-10.6) k/uL RBC (3.80-5.40) m/uL Hgb (11.4-16.0) gm/dL Hct (34.0-46.0) % MCV (80.0-100.0) fL MCH (25.0-35.0) pg MCHC (31.0-37.0) g/dL RDW (11.5-15.5) % Plt Count (150-450) k/uL Neutrophils % % Lymphocytes % % Monocytes % % Eosinophils % % Basophils % % Neutrophils # (1.3-7.7) k/uL Lymphocytes # (1.0-4.8) k/uL Monocytes # (0-1.0) k/uL Eosinophils # (0-0.7) k/uL Basophils # (0-0.2) k/uL Sodium (137-145) mmol/L Potassium (3.5-5.1) mmol/L Chloride (98-107) mmol/L Carbon Dioxide (22-30) mmol/L Anion Gap mmol/L BUN (7-17) mg/dL Creatinine (0.52-1.04) mg/dL Est GFR (CKD-EPI)AfAm (>60 ml/min/1.73 sqM) Est GFR (CKD-EPI)NonAf (>60 ml/min/1.73 sqM) Glucose (74-99) mg/dL Calcium (8.4-10.2) mg/dL Total Bilirubin (0.2-1.3) mg/dL AST (14-36) U/L ALT (9-52) U/L Alkaline Phosphatase (38-126) U/L Total Protein (6.3-8.2) g/dL Albumin (3.5-5.0) g/dL Amylase (30-110) U/L Lipase (23-300) U/L Urine Color Urine Appearance (Clear) Urine pH (5.0-8.0) Ur Specific [place] (1.001-1.035) Urine Protein (Negative) Urine Glucose (UA) (Negative) Urine Ketones (Negative) Urine Blood (Negative) Urine Nitrite (Negative) Urine Bilirubin (Negative) Urine Urobilinogen (<2.0) mg/dL Ur Leukocyte Esterase (Negative) Urine RBC (0-5) /hpf Urine WBC (0-5) /hpf Ur Squamous Epith Cells (0-4) /hpf Amorphous Sediment (None) /hpf Urine Bacteria (None) /hpf Urine Mucus (None) /hpf Urine HCG, Qual Not Detected (Not Detectd) Disposition Clinical Impression: Nausea & vomiting Disposition: HOME SELF-CARE Condition: Stable Instructions: Acute Nausea and Vomiting (ED) Additional Instructions: Please return to the Emergency Department if symptoms worsen or any other concerns. Prescriptions: Ondansetron Odt [Zofran Odt] 4 mg PO Q8HR PRN #10 tab PRN Reason: Nausea Is patient prescribed a controlled substance at d/c from ED?: No Referrals: Kaley Hdz MD [Primary Care Provider] - 1-2 days Time of Disposition: 11:48
[2017-12-22 08:59] LABS: Basophils % (A) 0 %; Eosinophils % (A) 0 %; HCT 41.5 % (34.0-46.0); HGB 13.7 gm/dL (11.4-16.0); Lymphocytes # (A) 1.2 k/uL (1.0-4.8); Lymphocytes % (A) 10 %; MCH 31.7 pg (25.0-35.0); MCHC 33.1 g/dL (31.0-37.0); MCV 95.7 fL (80.0-100.0); Mean Platelet Volume 7.1; Monocytes # (A) 0.4 k/uL (0-1.0); Monocytes % (A) 3 %; Neutrophils # (A) 10.1 k/uL (1.3-7.7); Neutrophils % (A) 86 %; Platelet Count 279 k/uL (150-450); RBC 4.33 m/uL (3.80-5.40); RDW 13.1 % (11.5-15.5); WBC 11.8 k/uL (3.8-10.6)
[2017-12-22 09:09] LABS: ALT 20 U/L (9-52); AST 21 U/L (14-36); Albumin 4.3 g/dL (3.5-5.0); Alkaline Phosphatase 53 U/L (38-126); Amylase 64 U/L (30-110); Anion Gap 7 mmol/L; Blood Urea Nitrogen 11 mg/dL (7-17); Calcium 9.3 mg/dL (8.4-10.2); Carbon Dioxide 25 mmol/L (22-30); Chloride 107 mmol/L (98-107); Glucose 130 mg/dL (74-99); Lipase 40 U/L (23-300); Potassium 3.7 mmol/L (3.5-5.1); Sodium 139 mmol/L (137-145); Total Bilirubin 0.3 mg/dL (0.2-1.3)
[2017-12-22] MEDS ORDERED: KETOROLAC 30 MG/ML 1 ML VIAL IVP STA (09:58)
[2017-12-22] MEDS ORDERED: METOCLOPRAMIDE 5 MG/ML 2 ML VIAL IVP STA (09:58)
[2017-12-22 11:03] LABS: Amorphous Sediment,Urine Occasional /hpf; Appearance,Urine Cloudy (Clear); Bacteria,Urine Few /hpf; Bilirubin,Urine Negative (Negative); Blood,Urine Moderate (Negative); Color,Urine Yellow; Glucose,Urine (UA) Negative (Negative); Ketones,Urine Trace (Negative); Leukocyte Esterase,Urine Small (Negative); Mucus,Urine Many /hpf; Nitrite,Urine Positive (Negative); PH, Urine 6.5 (5.0-8.0); Protein,Urine Trace (Negative); RBC,Urine 30 /hpf (0-5); Specific Gravity,Urine 1.023 (1.001-1.035); Squamous Epithelial Cell,Urine 2 /hpf (0-4); WBC,Urine 5 /hpf (0-5)
[2017-12-22 12:09] VITALS: BP 129/86; PULSE 67; RESP 18
== END 2017-12-22 12:09 | disposition home or self-care (01) ==
LOC: EC 08:24
DX: R11.2 Nausea with vomiting, unspecified (principal); N39.0 Urinary tract infection, site not specified; F17.200 Nicotine dependence, unspecified, uncomplicated
CPT/HCPCS: 36415; 80053; 82150; 83690; 85025; 81001; 81025; 99284; 96374; 96375 ×4; 96376; 96361 ×3; J1200; J2765; J2405; J1885

== ENCOUNTER 2020-02-22 14:16 | Emergency (ER) | payer OTHER ==
[2020-02-22 14:35] VITALS: RESP 18
[2020-02-22] MEDS ORDERED: SODIUM CHLORIDE 0.9% 1,000 ML IV STA (14:53)
[2020-02-22] MEDS ORDERED: METOCLOPRAMIDE 5 MG/ML 2 ML VIAL IVP STA (14:53)
[2020-02-22] MEDS ORDERED: diphenhydrAMINE 50 MG/ML 1 ML VIAL IVP STA (14:53)
--- NOTE | 2020-02-22 15:07 | ED ---
Nausea/Vomiting/Diarrhea HPI - General Chief complaint: Nausea/Vomiting/Diarrhea Stated complaint: Nausea/Vomiting/Anxiety (7 weeks prg) Time Seen by Provider: 02/22/20 14:39 Source: patient Mode of arrival: wheelchair Limitations: no limitations - History of Present Illness Initial comments: Patient is a 29-year-old female presenting to the emergency Department with complaints of nausea and vomiting for the last 2 weeks. Patient states she is currently 7 weeks and has not been up to eat much in the last few days. She is . She states this was unplanned. She denies any abdominal pain just some occasional cramping, no vaginal bleeding or vaginal discomfort. She states she went to [facility] last week for the same c omplaint and they gave her some fluids and sent her home. She also had a ultrasound at that visit, which was normal. Patient states she continues to be nauseous. Her last ICE HANDLER is Dr. Fernández, she has not seen anyone for this yet. Denies any chest pain, short of breath, fever, chills. Patient states she has had nausea and vomiting with her previous pregnancies. She has no further complaints at this time. Upon arrival to the ER, her vitals are stable. - Related Data Previous Rx's Medication Instructions Recorded Cephalexin [Keflex] 500 mg PO Q6HR 3 Days #12 cap 12/22/17 Ondansetron Odt [Zofran Odt] 4 mg PO Q8HR PRN #10 tab 12/22/17 Doxylamine/Pyridoxine HCl (B6) 1 each PO Q8HR PRN #20 tablet. 02/22/20 [Sarah Bhatti 10-10 mg Tablet] Ondansetron Odt [Zofran Odt] 4 mg PO Q8HR PRN #10 tab 02/22/20 Allergies Allergy/AdvReac Type Severity Reaction Status Date / Time No Known Allergies Allergy Verified 02/22/20 14:35 Review of Systems ROS Statement: Those systems with pertinent positive or pertinent negative responses have been documented in the HPI. ROS Other: All systems not noted in ROS Statement are negative. Past Medical History Past Medical History: Asthma Additional Past Medical History / Comment(s): OB history: 3 miscarriages, 1 NVD at term and 1 vag delivery at 31 weeks at [place]. History of Any Multi-Drug Resistant Organisms: None Reported Past Surgical History: Ear Surgery Past Anesthesia/Blood Transfusion Reactions: No Reported Reaction Past Psychological History: Anxiety, Bipolar, Depression Smoking Status: Former smoker Past Alcohol Use History: Occasional Past Drug Use History: Marijuana - Past Family History Mother Additional Family Medical History / Comment(s): mom had ruptured bowel. General Exam - General Exam Comments Initial Comments: GENERAL: Patient is well-developed and well-nourished. Patient is nontoxic and in mild distress. HEAD: Atraumatic, normocephalic. EYES: Pupils equal round and reactive to light, extraocular movements intact, sclera anicteric, conjunctiva are normal. Eyelids were unremarkable. ENT: TMs normal, nares patent, oropharynx clear without exudates. Moist mucous membranes. NECK: Normal range of motion, supple without lymphadenopathy or JVD. LUNGS: Unlabored respirations. Breath sounds clear to auscultation bilaterally and equal. No wheezes rales or rhonchi. HEART: Regular rate and rhythm without murmurs, rubs or gallops. ABDOMEN: Soft, nontender, normoactive bowel sounds. No guarding, no rebound. No masses appreciated. : Deferred MUSCULOSKELETAL: Normal extremities with adequate strength and normal range of motion, no pitting or edema. No clubbing or cyanosis. NEUROLOGICAL: Patient is alert and oriented x 3. Motor and sensory are also intact. Cranial nerves II through XII grossly intact. Symmetrical smile. Normal speech, normal gait. PSYCH: Normal mood, normal affect. SKIN: Warm, Dry, normal turgor, no rashes or lesions noted. Limitations: no limitations Course Vital Signs 02/22/20 02/22/20 02/22/20 14:32 16:00 17:55 Temperature 98.9 F 98.0 F Pulse Rate 86 83 85 Respiratory 18 18 18 Rate Blood Pressure 120/82 99/54 110/58 O2 Sat by Pulse 98 100 99 Oximetry Medical Decision Making - Medical Decision Making Patient is a 29-year-old female, currently 7 weeks , presenting for nausea and vomiting and fatigue 1-2 weeks. She has no abdominal pain, no vaginal bleeding. She was seen at [facility] last week for same complaint, had normal ultrasound. Vital signs are stable today. Her exam is unremarkable, except for severe nausea. Labs show slight leukocytosis at 12.9, most likely reactive. Kidney function is stable hCG Alan is 122,000, urine shows no evidence of infection, 4+ ketones. Patient was given a liter fluids, anti- nausea medicines. Patient does report parameters symptoms. Patient is stable for discharge. I will give her a prescription for Zofran as well as diclegis for additional nausea. Patient can also follow-up with her ICE HANDLER. She is in agreement with this plan of care. She is stable for discharge. Return parameters were discussed with the patient she verbalized understanding. Case discussed with Dr. Vasquez. - Lab Data Result diagrams: 02/22/20 14:56 02/22/20 14:56 Lab Results 02/22/20 02/22/20 02/22/20 Range/Units 14:56 14:56 14:56 WBC 12.9 H (3.8-10.6) k/uL RBC 4.77 (3.80-5.40) m/uL Hgb 15.5 (11.4-16.0) gm/dL Hct 45.0 (34.0-46.0) % MCV 94.4 (80.0-100.0) fL MCH 32.5 (25.0-35.0) pg MCHC 34.4 (31.0-37.0) g/dL RDW 12.1 (11.5-15.5) % Plt Count 334 (150-450) k/uL MPV 6.8 Neutrophils % 84 % Lymphocytes % 10 % Monocytes % 4 % Eosinophils % 0 % Basophils % 0 % Neutrophils # 10.9 H (1.3-7.7) k/uL Lymphocytes # 1.3 (1.0-4.8) k/uL Monocytes # 0.5 (0-1.0) k/uL Eosinophils # 0.0 (0-0.7) k/uL Basophils # 0.1 (0-0.2) k/uL Sodium 135 L (137-145) mmol/L Potassium 4.0 (3.5-5.1) mmol/L Chloride 103 (98-107) mmol/L Carbon Dioxide 19 L (22-30) mmol/L Anion Gap 13 mmol/L BUN 8 (7-17) mg/dL Creatinine 0.55 (0.52-1.04) mg/dL Est GFR (CKD-EPI)AfAm >90 (>60 ml/min/1.73 sqM) Est GFR (CKD-EPI)NonAf >90 (>60 ml/min/1.73 sqM) Glucose 93 (74-99) mg/dL Calcium 9.9 (8.4-10.2) mg/dL Total Bilirubin 0.6 (0.2-1.3) mg/dL AST 24 (14-36) U/L ALT 17 (4-34) U/L Alkaline Phosphatase 54 (38-126) U/L Total Protein 7.9 (6.3-8.2) g/dL Albumin 4.8 (3.5-5.0) g/dL HCG, Quant 664217.0 mIU/mL Urine Color Yellow Urine Appearance Cloudy H (Clear) Urine pH 5.5 (5.0-8.0) Ur Specific [place] 1.030 (1.001-1.035) Urine Protein 1+ H (Negative) Urine Glucose (UA) Negative (Negative) Urine Ketones 4+ H (Negative) Urine Blood Negative (Negative) Urine Nitrite Negative (Negative) Urine Bilirubin Negative (Negative) Urine Urobilinogen <2.0 (<2.0) mg/dL Ur Leukocyte Esterase Negative (Negative) Urine RBC 1 (0-5) /hpf Urine WBC 4 (0-5) /hpf Ur Squamous Epith Cells 7 H (0-4) /hpf Urine Mucus Occasional H (None) /hpf Disposition Clinical Impression: Dehydration, Nausea and vomiting in Disposition: HOME SELF-CARE Condition: Stable Instructions (If sedation given, give patient instructions): Nausea and Vomiting in (ED) Additional Instructions: Please return to the Emergency Department if symptoms worsen or any other conc erns. Trial of Zofran for additional nausea, follow up with her ICE HANDLER as discussed. Prescriptions: Doxylamine/Pyridoxine HCl (B6) [Sarah Bhatti 10-10 mg Tablet] 1 each PO Q8HR PRN #20 tablet. PRN Reason: Nausea Ondansetron Odt [Zofran Odt] 4 mg PO Q8HR PRN #10 tab PRN Reason: Nausea Is patient prescribed a controlled substance at d/c from ED?: No Referrals: Kaley Hdz MD [Primary Care Provider] - 1-2 days Sumit Fernández DO [Doctor of Osteopathic Medicine] - 1-2 days
[2020-02-22 15:14] LABS: Basophils # (A) 0.1 k/uL (0-0.2); Basophils % (A) 0 %; Eosinophils % (A) 0 %; HGB 15.5 gm/dL (11.4-16.0); Lymphocytes # (A) 1.3 k/uL (1.0-4.8); Lymphocytes % (A) 10 %; MCH 32.5 pg (25.0-35.0); MCHC 34.4 g/dL (31.0-37.0); MCV 94.4 fL (80.0-100.0); Mean Platelet Volume 6.8; Monocytes # (A) 0.5 k/uL (0-1.0); Monocytes % (A) 4 %; Neutrophils # (A) 10.9 k/uL (1.3-7.7); Neutrophils % (A) 84 %; Platelet Count 334 k/uL (150-450); RBC 4.77 m/uL (3.80-5.40); RDW 12.1 % (11.5-15.5); WBC 12.9 k/uL (3.8-10.6)
[2020-02-22 15:18] LABS: Appearance,Urine Cloudy (Clear); Bilirubin,Urine Negative (Negative); Blood,Urine Negative (Negative); Color,Urine Yellow; Glucose,Urine (UA) Negative (Negative); Ketones,Urine 4+ (Negative); Leukocyte Esterase,Urine Negative (Negative); Mucus,Urine Occasional /hpf; Nitrite,Urine Negative (Negative); PH, Urine 5.5 (5.0-8.0); Protein,Urine 1+ (Negative); RBC,Urine 1 /hpf (0-5); Squamous Epithelial Cell,Urine 7 /hpf (0-4); Urobilinogen,Urine <2.0 mg/dL (<2.0); WBC,Urine 4 /hpf (0-5)
[2020-02-22 15:23] LABS: ALT 17 U/L (4-34); AST 24 U/L (14-36); African American GFR (CKD) >90 (>60 ml/min/1.73 sqM); Albumin 4.8 g/dL (3.5-5.0); Alkaline Phosphatase 54 U/L (38-126); Anion Gap 13 mmol/L; Blood Urea Nitrogen 8 mg/dL (7-17); Calcium 9.9 mg/dL (8.4-10.2); Carbon Dioxide 19 mmol/L (22-30); Chloride 103 mmol/L (98-107); Glucose 93 mg/dL (74-99); Non-African American GFR(CKD) >90 (>60 ml/min/1.73 sqM); Sodium 135 mmol/L (137-145); Total Bilirubin 0.6 mg/dL (0.2-1.3); Total Protein 7.9 g/dL (6.3-8.2)
[2020-02-22] MEDS ORDERED: ONDANSETRON 4 MG/2 ML VIAL IVP STA (16:46)
[2020-02-22 17:56] VITALS: BP 110/58; PULSE 85; TEMP 98
== END 2020-02-22 17:56 | disposition home or self-care (01) ==
LOC: EC 14:16
DX: O21.9 Vomiting of pregnancy, unspecified (principal); E86.0 Dehydration; O99.281 Endocrine, nutritional and metabolic diseases complicating pregnancy, first trimester; O99.111 Other diseases of the blood and blood-forming organs and certain disorders involving the immune mechanism complicating pregnancy, first trimester; D72.829 Elevated white blood cell count, unspecified; O26.811 Pregnancy related exhaustion and fatigue, first trimester; Z87.891 Personal history of nicotine dependence; Z3A.01 Less than 8 weeks gestation of pregnancy
CPT/HCPCS: 36415; 80053; 85025; 81001; 84702; 99284; 96374; 96375 ×2; 96361 ×3; J1200; J2765; J2405

== ENCOUNTER 2020-02-27 12:27 | Emergency (ER) | payer OTHER ==
[2020-02-27 12:35] VITALS: TEMP 98
[2020-02-27] MEDS ORDERED: SODIUM CHLORIDE 0.9% 1,000 ML IV ONE (12:57)
--- NOTE | 2020-02-27 13:43 | ED ---
General Adult HPI - General Chief complaint: Nausea/Vomiting/Diarrhea Stated complaint: 7 wks preg - vomiting, unable to eat Time Seen by Provider: 02/27/20 12:42 Source: patient, RN notes reviewed Mode of arrival: ambulatory Limitations: no limitations - History of Present Illness Initial comments: 29-year-old female currently 7.5 weeks with an LMP of January 02 presents to the emergency room for several complaints. Patient reports that she is having nausea or vomiting. This has been ongoing for the past 3 weeks. This is consistent with previous morning sickness. For the past couple of days she has also had suprapubic pain. Feels like cramping. She has not had any vaginal discharge or bleeding. Patient states that she also felt inside her vagina and feels like her cervix is prolapsing. She notices a few weeks ago but just called her CHEMICAL PROCESSING TECHNICIAN today. Patient has an appointment tomorrow. They recommended she come to the emergency room.Patient has no other complaints at this time including shortness of breath, chest pain, abdominal pain, nausea or vomiting, headache, or visual changes. - Related Data Home Medications Medication Instructions Recorded Confirmed Buprenorphine HCl/Naloxone HCl 0.5 film SUBLINGUAL DAILY 02/27/20 02/27/20 [Suboxone 8 mg-2 mg Sl Film] Previous Rx's Medication Instructions Recorded Ondansetron Odt [Zofran Odt] 4 mg PO Q8HR PRN #10 tab 02/22/20 Allergies Allergy/AdvReac Type Severity Reaction Status Date / Time No Known Allergies Allergy Verified 02/27/20 15:05 Review of Systems ROS Statement: Those systems with pertinent positive or pertinent negative responses have been documented in the HPI. ROS Other: All systems not noted in ROS Statement are negative. Past Medical History Past Medical History: Asthma Additional Past Medical History / Comment(s): OB history: 3 miscarriages, 1 NVD at term and 1 vag delivery at 31 weeks at [place]. History of Any Multi-Drug Resistant Organisms: None Reported Past Surgical History: Ear Surgery Past Anesthesia/Blood Transfusion Reactions: No Reported Reaction Past Psychological History: Anxiety, Bipolar, Depression Smoking Status: Former smoker Past Alcohol Use History: None Reported, Occasional Past Drug Use History: None Reported, Marijuana - Past Family History Mother Additional Family Medical History / Comment(s): mom had ruptured bowel. General Exam Limitations: no limitations General appearance: alert, in no apparent distress Head exam: Present: atraumatic, normocephalic, normal inspection Eye exam: Present: normal appearance, PERRL, EOMI. Absent: scleral icterus, conjunctival injection, periorbital swelling ENT exam: Present: normal exam, mucous membranes moist Neck exam: Present: normal inspection, full ROM. Absent: tenderness, meningismus, lymphadenopathy Respiratory exam: Present: normal lung sounds bilaterally. Absent: respiratory distress, wheezes, rales, rhonchi, stridor Cardiovascular Exam: Present: regular rate, normal rhythm, normal heart sounds. Absent: systolic murmur, diastolic murmur, rubs, gallop, clicks GI/Abdominal exam: Present: soft, normal bowel sounds. Absent: distended, tenderness, guarding, rebound, rigid Neurological exam: Present: alert Course Vital Signs 02/27/20 02/27/20 12:32 14:29 Temperature 98 F Pulse Rate 115 H 82 Respiratory 18 20 Rate Blood Pressure 118/77 128/71 O2 Sat by Pulse 98 99 Oximetry Medical Decision Making - Medical Decision Making Vitals are stable. Patient is well-appearing. She has some suprapubic tenderness however no significant abdominal pain. CBC CMP unremarkable. Urinalysis does show 4+ ketones which is likely secondary to patient's dehydration. Patient was given 2 L of fluid. I did perform a pelvic exam which did have some vaginal discharge noted. Trichomonas negative. Gonorrhea chlamydia pending. Ultrasound shows findings compatible with a viable at 8 weeks with a heart rate of 185. Patient has an appointment with her CHEMICAL PROCESSING TECHNICIAN tomorrow. She will follow-up at that time. She will return for any worsening symptoms. - Lab Data Result diagrams: 02/27/20 13:32 02/27/20 13:32 Lab Results 02/27/20 02/27/20 02/27/20 Range/Units 13:32 13:32 13:32 WBC 11.2 H (3.8-10.6) k/uL RBC 4.81 (3.80-5.40) m/uL Hgb 15.3 (11.4-16.0) gm/dL Hct 45.7 (34.0-46.0) % MCV 95.1 (80.0-100.0) fL MCH 31.9 (25.0-35.0) pg MCHC 33.6 (31.0-37.0) g/dL RDW 12.0 (11.5-15.5) % Plt Count 305 (150-450) k/uL MPV 7.0 Neutrophils % 83 % Lymphocytes % 12 % Monocytes % 4 % Eosinophils % 0 % Basophils % 0 % Neutrophils # 9.3 H (1.3-7.7) k/uL Lymphocytes # 1.3 (1.0-4.8) k/uL Monocytes # 0.4 (0-1.0) k/uL Eosinophils # 0.0 (0-0.7) k/uL Basophils # 0.0 (0-0.2) k/uL Sodium (137-145) mmol/L Potassium (3.5-5.1) mmol/L Chloride (98-107) mmol/L Carbon Dioxide (22-30) mmol/L Anion Gap mmol/L BUN (7-17) mg/dL Creatinine (0.52-1.04) mg/dL Est GFR (CKD-EPI)AfAm (>60 ml/min/1.73 sqM) Est GFR (CKD-EPI)NonAf (>60 ml/min/1.73 sqM) Glucose (74-99) mg/dL Calcium (8.4-10.2) mg/dL Total Bilirubin (0.2-1.3) mg/dL AST (14-36) U/L ALT (4-34) U/L Alkaline Phosphatase (38-126) U/L Total Protein (6.3-8.2) g/dL Albumin (3.5-5.0) g/dL Urine Color Yellow Urine Appearance Clear (Clear) Urine pH 5.5 (5.0-8.0) Ur Specific [place] 1.028 (1.001-1.035) Urine Protein 1+ H (Negative) Urine Glucose (UA) Negative (Negative) Urine Ketones 4+ H (Negative) Urine Blood Negative (Negative) Urine Nitrite Negative (Negative) Urine Bilirubin Negative (Negative) Urine Urobilinogen <2.0 (<2.0) mg/dL Ur Leukocyte Esterase Negative (Negative) Urine RBC 1 (0-5) /hpf Urine WBC 3 (0-5) /hpf Ur Squamous Epith Cells 2 (0-4) /hpf Amorphous Sediment Rare H (None) /hpf Urine Bacteria Occasional H (None) /hpf Hyaline Casts 13 H (0-2) /lpf Urine Mucus Moderate H (None) /hpf Urine HCG, Qual Detected (Not Detectd) Trichomonas Ag (Rapid) (Negative) 02/27/20 02/27/20 Range/Units 13:32 14:30 WBC (3.8-10.6) k/uL RBC (3.80-5.40) m/uL Hgb (11.4-16.0) gm/dL Hct (34.0-46.0) % MCV (80.0-100.0) fL MCH (25.0-35.0) pg MCHC (31.0-37.0) g/dL RDW (11.5-15.5) % Plt Count (150-450) k/uL MPV Neutrophils % % Lymphocytes % % Monocytes % % Eosinophils % % Basophils % % Neutrophils # (1.3-7.7) k/uL Lymphocytes # (1.0-4.8) k/uL Monocytes # (0-1.0) k/uL Eosinophils # (0-0.7) k/uL Basophils # (0-0.2) k/uL Sodium 132 L (137-145) mmol/L Potassium 3.9 (3.5-5.1) mmol/L Chloride 101 (98-107) mmol/L Carbon Dioxide 16 L (22-30) mmol/L Anion Gap 15 mmol/L BUN 7 (7-17) mg/dL Creatinine 0.54 (0.52-1.04) mg/dL Est GFR (CKD-EPI)AfAm >90 (>60 ml/min/1.73 sqM) Est GFR (CKD-EPI)NonAf >90 (>60 ml/min/1.73 sqM) Glucose 80 (74-99) mg/dL Calcium 9.6 (8.4-10.2) mg/dL Total Bilirubin 0.6 (0.2-1.3) mg/dL AST 26 (14-36) U/L ALT 17 (4-34) U/L Alkaline Phosphatase 46 (38-126) U/L Total Protein 7.5 (6.3-8.2) g/dL Albumin 4.6 (3.5-5.0) g/dL Urine Color Urine Appearance (Clear) Urine pH (5.0-8.0) Ur Specific [place] (1.001-1.035) Urine Protein (Negative) Urine Glucose (UA) (Negative) Urine Ketones (Negative) Urine Blood (Negative) Urine Nitrite (Negative) Urine Bilirubin (Negative) Urine Urobilinogen (<2.0) mg/dL Ur Leukocyte Esterase (Negative) Urine RBC (0-5) /hpf Urine WBC (0-5) /hpf Ur Squamous Epith Cells (0-4) /hpf Amorphous Sediment (None) /hpf Urine Bacteria (None) /hpf Hyaline Casts (0-2) /lpf Urine Mucus (None) /hpf Urine HCG, Qual (Not Detectd) Trichomonas Ag (Rapid) Negative (Negative) Disposition Clinical Impression: Nausea and vomiting in Disposition: HOME SELF-CARE Condition: Good Instructions (If sedation given, give patient instructions): Nausea and Vomiting in (ED) Additional Instructions: Please follow up with your CHEMICAL PROCESSING TECHNICIAN tomorrow. Return to the emergency room for any worsening symptoms. Is patient prescribed a controlled substance at d/c from ED?: No Referrals: Kaley Hdz MD [Primary Care Provider] - 1-2 days Time of Disposition: 15:59
[2020-02-27 14:02] LABS: Basophils % (A) 0 %; Eosinophils % (A) 0 %; HCT 45.7 % (34.0-46.0); HGB 15.3 gm/dL (11.4-16.0); Lymphocytes # (A) 1.3 k/uL (1.0-4.8); Lymphocytes % (A) 12 %; MCH 31.9 pg (25.0-35.0); MCHC 33.6 g/dL (31.0-37.0); MCV 95.1 fL (80.0-100.0); Monocytes # (A) 0.4 k/uL (0-1.0); Monocytes % (A) 4 %; Neutrophils # (A) 9.3 k/uL (1.3-7.7); Neutrophils % (A) 83 %; Platelet Count 305 k/uL (150-450); RBC 4.81 m/uL (3.80-5.40); WBC 11.2 k/uL (3.8-10.6)
[2020-02-27 14:12] LABS: ALT 17 U/L (4-34); AST 26 U/L (14-36); African American GFR (CKD) >90 (>60 ml/min/1.73 sqM); Albumin 4.6 g/dL (3.5-5.0); Alkaline Phosphatase 46 U/L (38-126); Anion Gap 15 mmol/L; Blood Urea Nitrogen 7 mg/dL (7-17); Calcium 9.6 mg/dL (8.4-10.2); Carbon Dioxide 16 mmol/L (22-30); Chloride 101 mmol/L (98-107); Glucose 80 mg/dL (74-99); Non-African American GFR(CKD) >90 (>60 ml/min/1.73 sqM); Potassium 3.9 mmol/L (3.5-5.1); Sodium 132 mmol/L (137-145); Total Bilirubin 0.6 mg/dL (0.2-1.3); Total Protein 7.5 g/dL (6.3-8.2)
[2020-02-27 14:15] LABS: Amorphous Sediment,Urine Rare /hpf; Appearance,Urine Clear (Clear); Bacteria,Urine Occasional /hpf; Bilirubin,Urine Negative (Negative); Blood,Urine Negative (Negative); Color,Urine Yellow; Glucose,Urine (UA) Negative (Negative); Hyaline Casts,Urine 13 /lpf (0-2); Ketones,Urine 4+ (Negative); Leukocyte Esterase,Urine Negative (Negative); Mucus,Urine Moderate /hpf; Nitrite,Urine Negative (Negative); PH, Urine 5.5 (5.0-8.0); Protein,Urine 1+ (Negative); RBC,Urine 1 /hpf (0-5); Specific Gravity,Urine 1.028 (1.001-1.035); Squamous Epithelial Cell,Urine 2 /hpf (0-4); Urobilinogen,Urine <2.0 mg/dL (<2.0); WBC,Urine 3 /hpf (0-5)
--- NOTE | 2020-02-27 14:19 | US ---
EXAMINATION TYPE: Transabdominal DATE OF EXAM: 02/27/2020 2:02 PM COMPARISON: NONE CLINICAL HISTORY: pain. Pain and nausea EXAM PERFORMED: Transabdominal (TA) EXAM MEASUREMENTS: GESTATIONAL AGE / DATING Physician Established: Not yet established Dates by LMP: 10/10/2019 (7 weeks/6 days) EDC: 01/03/2020 Dates by First Scan: No previous this is first scan Dates by Current Scan for: ( 8 weeks/0 days) EDC: 10/08/2020 MATERNAL ANATOMY Uterus: 8.1 x 7.4 x 7.6 cm Right Ovary: 3.6 x 1.6 x 1.4 cm Left Ovary: 2.7 x 1.9 x 1.7 cm Post CDS / Adnexa: wnl Presence of free fluid: wnl Presence of corpus luteal cyst: No Presence of subchorionic bleed: no GESTATION / SURVEY CRL: 1.54 cm (8 weeks/0 days) Yolk Sac (normal less than 6mm): .3 Heart Rate: 185 bpm Rhythm: Normal IUP: Viable IUP Beta HcG (if available): Not available at this time IMPRESSION: Findings compatible with a viable 8 weeks 0 days with a heart rate of 185 bpm.
[2020-02-27] MEDS ORDERED: SODIUM CHLORIDE 0.9% 1,000 ML IV STA (14:51)
[2020-02-27] MEDS ORDERED: diphenhydrAMINE 50 MG/ML 1 ML VIAL IVP STA (14:51)
[2020-02-27] MEDS ORDERED: METOCLOPRAMIDE 5 MG/ML 2 ML VIAL IVP STA (14:51)
[2020-02-27 16:28] VITALS: BP 109/70; PULSE 76; RESP 18
[2020-02-28 14:43] LABS: C. trachomatis,PCR Negative (Neg,Equiv); Chlamydia trachomatis Source Vagina; N. gonorrhoeae,PCR Negative (Neg,Equiv); Neisseria Source Vagina
== END 2020-02-27 16:30 | disposition home or self-care (01) ==
LOC: EC 12:27
DX: O21.9 Vomiting of pregnancy, unspecified (principal); Z87.891 Personal history of nicotine dependence; Z3A.08 8 weeks gestation of pregnancy
CPT/HCPCS: 36415; 80053; 85025; 81001; 81025; 84702; 87808; 87491; 87591; 87070; 76801; 99284; 96374; 96375; 96361 ×2; J1200; J2765

== ENCOUNTER 2020-08-04 11:42 | Observation (INO) | payer OTHER ==
[2020-08-04 12:48] VITALS: BP 118/74; PULSE 103; RESP 16; TEMP 97.5
--- NOTE | 2020-08-31 11:25 | P.MSEPDOC ---
Presenting Problems - Arrival Data Date of Arrival on Unit: 08/04/20 Time of Arrival on Unit: 11:42 Mode of Transport: Ambulatory - Complaint OB-Reason for Admission/Chief Complaint: Possible Onset of Labor Medical History - Information : 6 Para: 3 Term: 1 : 2 Abortions: Spontaneous or Elective: 2 Number of Living Children: 3 - Gestational Age Gestational Age by BARON (wks/days): 30 Weeks and 4 Days - History Complications: Prior , Smoker, Hx. Substance Abuse Comment: THC, and HX of prescription drug addiction Review of Systems - Review of Systems Constitutional: No problems Breast: No problems ENT: No problems Cardiovascular: No problems Respiratory: No problems Gastrointestinal: No problems Genitourinary: No problems Musculoskeletal: No problems Neurological: No problems Skin: No problems Vital Signs - Temperature Temperature: 97.5 F Temperature Source: Temporal Artery Scan - Pulse Right Sitting Pulse Rate: 103 Pulse Assessment Method: Automatic Cuff - Respirations Respiratory Rate: 16 Oxygen Delivery Method: Room Air - Blood Pressure Right Arm Blood Pressure: 118/74 Blood Pressure Mean: 88 Blood Pressure Source: Automatic Cuff Medical Screen Scoring - Assessment - Baby A Baseline FHR: 130 Physician Notification - Physician Notified Physician Notified Date: 08/04/20 Physician Notified Time: 12:06 Physician: Kashif Mckeon Order Received: Yes (d/c home if not dilated) Disposition - Disposition OB Disposition: Discharge to home Discharge Date: 08/04/20 Discharge Time: 12:40 I agree with the RN Medical Screening Exam: Yes Physician's MSE Comment: I have neither seen nor examined the patient. Case reviewed; plan agreed upon as documented in EMR&OBIX.: Yes Diagnosis: RELATED CONDITIONS, UNSPECIFIED, THIRD TRIMESTER
== END 2020-08-04 13:44 | disposition home or self-care (01) ==
LOC: FBPOP 11:42 → INTOOBSV 13:30 → 4FBP 13:30 → UNDODISIN 13:44
PROVIDERS: ADMIT Obstetrics & Gynecology; ATTEND Obstetrics & Gynecology
DX: O09.213 Supervision of pregnancy with history of pre-term labor, third trimester (principal); O99.333 Smoking (tobacco) complicating pregnancy, third trimester; F17.200 Nicotine dependence, unspecified, uncomplicated; Z3A.30 30 weeks gestation of pregnancy; F19.21 Other psychoactive substance dependence, in remission
CPT/HCPCS: 59025; G0463; G0378; 99213

== ENCOUNTER 2020-08-24 19:55 | Outpatient (CLI) | payer OTHER ==
[2020-08-24] MEDS ORDERED: LACTATED RINGERS 1,000 ML IV ONE (20:31)
[2020-08-24] MEDS ORDERED: MAGNESIUM SULFATE-WATER PMX 4 GM in WATER FOR INJECTION 1 100ML.BAG IVPB ONE (20:31)
[2020-08-24] MEDS ORDERED: BETAMET ACET-BETAMETH SOD PHOS 6 MG/ML MDV IM SCH (20:45)
[2020-08-24] MEDS ORDERED: MAGNESIUM SULFATE-WATER PMX 20 GM in WATER FOR INJECTION 1 500ML.BAG IV SCH (20:45)
[2020-08-24 21:05] LABS: Basophils # (A) 0.1 k/uL (0-0.2); Basophils % (A) 0 %; Eosinophils # (A) 0.5 k/uL (0-0.7); Eosinophils % (A) 3 %; HGB 11.1 gm/dL (11.4-16.0); Lymphocytes # (A) 2.4 k/uL (1.0-4.8); Lymphocytes % (A) 15 %; MCH 30.7 pg (25.0-35.0); MCHC 32.5 g/dL (31.0-37.0); MCV 94.3 fL (80.0-100.0); Mean Platelet Volume 7.8; Monocytes # (A) 0.9 k/uL (0-1.0); Monocytes % (A) 6 %; Neutrophils # (A) 11.6 k/uL (1.3-7.7); Neutrophils % (A) 74 %; Platelet Count 320 k/uL (150-450); RBC 3.61 m/uL (3.80-5.40); RDW 13.5 % (11.5-15.5); WBC 15.6 k/uL (3.8-10.6)
--- NOTE | 2020-08-24 21:27 | P.HPOB ---
History of Present Illness H&P Date: 08/24/20 Chief Complaint: Contractions at 33-3/7 weeks This is a 29-year-old 5 para 2123 woman with an estimated due date of 10/09/2020 based on LMP consistent with 10 week ultrasound. She presents with several hours of painful contractions. Her obstetrical history is significant for a 31 week vaginal delivery in 2014. She has been on the progesterone support throughout the both by injection as well as the vaginal suppositories one injections were not available through the pharmacy. She denies current leakage of fluids or vaginal bleeding but has been having increasing urinary frequency. No dysuria or hematuria. She has had good movement. On evaluation in labor and delivery triage she was initially found to be roseline every 2-3 minutes. Her cervix is 3 cm dilated 60% effaced and the vertex is in the -2 station. Rupture of membranes is not detected. Vertex presentation. Obstetric history: 2011 39 weeks 8 lbs. 5 oz. 31 weeks vaginal delivery 4 lbs. 7 oz. 2016 37-6/7 weeks on 7 lbs. 4 oz. She is also had 2 first trimester miscarriages. Laboratory data blood type B+, antibody screen negative, rubella immune, VDRL nonreactive, hepatitis B surface antigen negative, HIV negative, gonorrhea and clinic cultures negative, hemoglobin A1c 5.2, glucose tolerance testing within normal limits. She does have a history of substance use disorder and is currently on 1 mg of Suboxone daily. She also uses marijuana throughout the . She is a former tobacco smoker. Review of Systems All systems: negative Past Medical History Past Medical History: Asthma Additional Past Medical History / Comment(s): OB history: 3 miscarriages, 1 NVD at term and 2 vag delivery at 31 weeks at [place]. History of Any Multi-Drug Resistant Organisms: None Reported Past Surgical History: Ear Surgery Past Anesthesia/Blood Transfusion Reactions: No Reported Reaction Past Psychological History: Anxiety, Depression Smoking Status: Former smoker Past Alcohol Use History: None Reported Past Drug Use History: Marijuana, Opiates - Past Family History Mother Family Medical History: No Reported History Additional Family Medical History / Comment(s): mom had ruptured bowel. Medications and Allergies Home Medications Medication Instructions Recorded Confirmed Type Buprenorphine HCl/Naloxone HCl 0.25 film SUBLINGUAL BID 02/27/20 08/24/20 History [Suboxone 8 mg-2 mg Sl Film] Progesterone Injection 1 injection [id number] 08/24/20 08/24/20 History Allergies Allergy/AdvReac Type Severity Reaction Status Date / Time No Known Allergies Allergy Verified 08/24/20 19:59 Exam Vital Signs Pulse BP 08/24/20 20:48 90 113/65 Intake and Output 08/24/20 08/24/20 08/24/20 06:59 14:59 22:59 Other: Weight 71.668 kg This is a pleasant, female who is visibly gravid. Fundal height consistent with 34 weeks. HEENT exam is unremarkable with no palpable been adenopathy or thyromegaly. Her breathing is unlabored and her heart is a regular rate and rhythm. The abdomen is gravid, soft and nontender. She is having palpable moderate contractions every 6-10 minutes. The extremities are free of any edema erythema or tenderness. On pelvic examination she is 3 cm dilated 60% effaced, vertex not well applied and the -3 station. heart tones are category 1 and she is roseline every 6 minutes. Results Result Diagrams: 08/24/20 20:45 Abnormal Lab Results - Last 24 Hours (Table) 08/24/20 Range/Units 20:45 WBC 15.6 H (3.8-10.6) k/uL RBC 3.61 L (3.80-5.40) m/uL Hgb 11.1 L (11.4-16.0) gm/dL Neutrophils # 11.6 H (1.3-7.7) k/uL Assessment and Plan (1) 33 weeks gestation of Current Visit: Yes Status: Acute Code(s): Z3A.33 - 33 WEEKS GESTATION OF SNOMED Code(s): 92363677 (2) labor Current Visit: Yes Status: Acute Code(s): O60.00 - LABOR WITHOUT DELIVERY, UNSPECIFIED TRIMESTER SNOMED Code(s): 0148850 (3) Marijuana use Current Visit: No Status: Acute Code(s): F12.10 - CANNABIS ABUSE, UNCOMPLICATED SNOMED Code(s): 87618571 Plan: 29 year old 6 para 2123 woman at 33-6/7 weeks' gestation by LMP consistent with 10 week ultrasound who presents in labor. She has a history of a previous 31 week delivery and has been followed by maternal- medicine at [facility]. She has received on progesterone support both by injection as well as vaginal suppository throughout the . She presents now with cervical change from recent examination approximately 1 week ago. She reports in the office she was 1-2 cm dilated with her attending physician. She is now 3 cm dilated. She was loaded on magnesium sulfate for tocolyse this and first dose of betamethasone for lung maturity is delivered. CBC and urinalysis are pending. Plan is to tocolyse and if stable transported to [facility] where she is being co-managed. This plan is reviewed with the patient in detail and all questions were answered. status is currently reassuring by external monitoring.
[2020-08-24 21:36] LABS: Appearance,Urine Cloudy (Clear); Bacteria,Urine Occasional /hpf; Bilirubin,Urine Negative (Negative); Blood,Urine Negative (Negative); Color,Urine Yellow; Glucose,Urine (UA) Negative (Negative); Ketones,Urine 2+ (Negative); Leukocyte Esterase,Urine Large (Negative); Mucus,Urine Many /hpf; Nitrite,Urine Positive (Negative); PH, Urine 6.5 (5.0-8.0); Protein,Urine 1+ (Negative); RBC,Urine 6 /hpf (0-5); Specific Gravity,Urine 1.024 (1.001-1.035); Squamous Epithelial Cell,Urine 1 /hpf (0-4); Urobilinogen,Urine <2.0 mg/dL (<2.0); WBC,Urine >182 /hpf (0-5)
[2020-08-24 21:47] LABS: Amphetamine Screen,Urine Not Detected (NotDetected); Barbiturate Screen,Urine Not Detected (NotDetected); Benzodiazepines Screen,Urine Not Detected (NotDetected); Cocaine Screen,Urine Not Detected (NotDetected); Methadone Screen, Urine Not Detected (NotDetected); Opiate Screen,Urine Not Detected (NotDetected); Oxycodone Screen, Urine Not Detected (NotDetected); Phencyclidine Screen,Urine Not Detected (NotDetected); Tricyclic Antidepressant,Urine Not Detected (NotDetected); Urn Cannabinoid Scrn Detected (NotDetected)
[2020-08-24 23:54] VITALS: BP 129/84; PULSE 102; RESP 16; TEMP 97.4
== END 2020-08-24 23:07 ==
LOC: FBPOP 19:55
PROVIDERS: ATTEND Obstetrics & Gynecology
DX: O60.03 Preterm labor without delivery, third trimester (principal); O99.323 Drug use complicating pregnancy, third trimester; F12.10 Cannabis abuse, uncomplicated; O99.513 Diseases of the respiratory system complicating pregnancy, third trimester; J45.909 Unspecified asthma, uncomplicated; Z3A.33 33 weeks gestation of pregnancy; Z87.891 Personal history of nicotine dependence
CPT/HCPCS: 59025; 96361; 96365; 96366; 96372; 85025; 81001; 80306; G0463; J3475 ×2; J0702; 99214; 99215

== ENCOUNTER 2020-09-11 19:55 | Inpatient (IN) | payer OTHER ==
[2020-09-11] MEDS ORDERED: LIDOCAINE 0.5% (PF) 5 MG/ML (50 ML SDV) SQ PRN (21:24)
[2020-09-11] MEDS ORDERED: CARBOPROST TROMETHAMINE 250 MCG/ML 1 ML AMP IM PRN (21:24)
[2020-09-11] MEDS ORDERED: OXYTOCIN 10 UNIT/ML 1 ML VIAL IM PRN (21:24)
[2020-09-11] MEDS ORDERED: TERBUTALINE 1 MG/ML VIAL SQ PRN (21:24)
[2020-09-11] MEDS ORDERED: METHYLERGONOVINE 0.2 MG/ML 1 ML AMP IM PRN (21:24)
[2020-09-11] MEDS ORDERED: PENICILLIN G POTASSIUM 5,000,000 UNIT in DEXTROSE 5% IN WATER 100 ML IVPB STA ×2 (21:28)
[2020-09-11 21:52] LABS: Basophils # (A) 0.1 k/uL (0-0.2); Basophils % (A) 1 %; Eosinophils # (A) 0.4 k/uL (0-0.7); Eosinophils % (A) 2 %; HCT 35.5 % (34.0-46.0); HGB 11.9 gm/dL (11.4-16.0); Lymphocytes # (A) 2.6 k/uL (1.0-4.8); Lymphocytes % (A) 16 %; MCH 31.6 pg (25.0-35.0); MCHC 33.6 g/dL (31.0-37.0); MCV 94.1 fL (80.0-100.0); Mean Platelet Volume 7.6; Monocytes % (A) 6 %; Neutrophils # (A) 12.1 k/uL (1.3-7.7); Neutrophils % (A) 74 %; Platelet Count 287 k/uL (150-450); RBC 3.77 m/uL (3.80-5.40); RDW 13.4 % (11.5-15.5); WBC 16.3 k/uL (3.8-10.6)
[2020-09-11] MEDS ORDERED: ONDANSETRON 4 MG/2 ML VIAL ONE (22:10)
[2020-09-11] MEDS ORDERED: DEXAMETHASONE SOD PHOSPHATE 10 MG/ML 1 ML VIAL ONE (22:10)
[2020-09-11] MEDS ORDERED: SUCCINYLCHOLINE CHLORIDE 100 MG/5 ML SYR IV ONE (22:10)
[2020-09-11] MEDS ORDERED: fentaNYL (PF) 50 MCG/ML 2 ML AMP ONE (22:10)
[2020-09-11] MEDS ORDERED: PROPOFOL 10 MG/ML 20 ML VIAL IV ONE (22:10)
[2020-09-11] MEDS ORDERED: OXYTOCIN 30 UNITS/500 ML NS BAG IV ONE (22:10)
[2020-09-11] MEDS ORDERED: HYDROmorphone (PF) 1 MG/ML ONE (22:10)
--- NOTE | 2020-09-11 23:10 | P.HPOB ---
History of Present Illness H&P Date: 09/11/20 Chief Complaint: Strong regular uterine contractions This is a 30-year-old white female 6 para 2123 EDC 10/09/2020 at 36 weeks' gestation. Patient presents from home with strong regular uterine contractions and she was seen in the office earlier today and noted to be 3 cm dilated. In the triage area she was noted to be 5-6 cm dilated with regular strong uterine contractions and therefore was admitted. Past medical history is significant for anxiety and previous opioid addiction, clean for 3 years. History of asthma. Past surgical history eustachian tubes as an infant. Past obstetric history normal spontaneous vaginal deliveries 3, 2 full-term, 1 at 31 weeks gestation. Family history is unremarkable. Social history tobacco smoking for many years, currently one half pack per day. Previous opioid addiction, clean for 3 years. Patient denies alcohol or other drug use. Her caitie Bell is present at the bedside. Current medications vitamins daily, Suboxone 2mg sublingually twice daily. ALLERGIES none known. Obstetric history is significant for labor treated with magnesium sulfate several weeks ago. records are not available at time of this dictation. On examination patient is 5 foot 2 inches, 161 pounds, blood pressure 116/75, pulse 105, respirations 16, temperature 98.5, O2 saturation 99. The general physical exam is significant for multiple body piercings including tongue and labia, and multiple tattoos. Chest is clear in all fileds. Extremities reveal no edema. Cervix is 6-7 cm dilated, 80% effaced, -2 station, vertex presentation. heart rate is reassuring, reactive NST. Artificial amnior rhexis at the bedside reveals abundant gush of clear fluid, with a loop of cord presenting along with the hand at the 3:00 region. Hand is kept in the vagina, and a stat section is called. All staff including anesthesia involved. Impression: 36 week intrauterine , recovering opioid addict on Suboxone, active labor, prolapsed cord at the bedside. Plan: Stat section. Anesthesia team, operating room team, and nursing staff all aware. Review of Systems Constitutional: Reports as per HPI Past Medical History Past Medical History: Asthma Additional Past Medical History / Comment(s): OB history: 3 miscarriages, 1 NVD at term and 2 vag delivery at 31 weeks at [place]. History of Any Multi-Drug Resistant Organisms: None Reported Past Surgical History: Ear Surgery Past Anesthesia/Blood Transfusion Reactions: No Reported Reaction Smoking Status: Current every day smoker - Past Family History Mother Family Medical History: No Reported History Additional Family Medical History / Comment(s): mom had ruptured bowel. Medications and Allergies Home Medications Medication Instructions Recorded Confirmed Type Buprenorphine HCl/Naloxone HCl 0.25 film SUBLINGUAL BID 02/27/20 09/11/20 History [Suboxone 8 mg-2 mg Sl Film] Progesterone Injection 1 injection [id number] 08/24/20 08/24/20 History Allergies Allergy/AdvReac Type Severity Reaction Status Date / Time No Known Allergies Allergy Verified 08/24/20 19:59 Exam Intake and Output 09/11/20 09/11/20 09/11/20 06:59 14:59 22:59 Other: Weight 73.028 kg See dictation under HPI Results Result Diagrams: 09/11/20 21:45 Abnormal Lab Results - Last 24 Hours (Table) 09/11/20 Range/Units 21:45 WBC 16.3 H (3.8-10.6) k/uL RBC 3.77 L (3.80-5.40) m/uL Neutrophils # 12.1 H (1.3-7.7) k/uL Assessment and Plan Assessment: 36 week intrauterine , active labor, recovering opioid attic on Suboxone, prolapsed cord Plan: Penicillin G has artery been given 1 for unknown group B strep status. Stat section now, 2 g of Kefzol given. Time with Patient: Less than 30
[2020-09-11] MEDS ORDERED: diphenhydrAMINE 25 MG CAP PO PRN (23:17)
[2020-09-11] MEDS ORDERED: HYDROmorphone 2 MG TAB PO PRN (23:17)
[2020-09-11] MEDS ORDERED: METOCLOPRAMIDE 5 MG/ML 2 ML VIAL IVP PRN (23:17)
[2020-09-11] MEDS ORDERED: ZOLPIDEM 5 MG TAB PO PRN (23:17)
[2020-09-11] MEDS ORDERED: diphenhydrAMINE 50 MG CAP PO PRN (23:17)
[2020-09-11] MEDS ORDERED: NALOXONE 0.4 MG/ML 1 ML VIAL IV PRN ×2 (23:17→23:46)
[2020-09-11] MEDS ORDERED: diphenhydrAMINE 50 MG/ML 1 ML VIAL IVP PRN ×2 (23:17)
--- NOTE | 2020-09-11 23:17 | P.OP ---
Date of Procedure: 09/11/20 Preoperative Diagnosis: 36 week intrauterine , active labor, prolapsed cord Postoperative Diagnosis: Same, liveborn male , long redundant umbilical cord, nuchal cord 1, true knot in the umbilical cord as well. Normal-appearing tubes and ovaries bilaterally. Procedure(s) Performed: Stat section, low transverse Anesthesia: GETA Surgeon: Annita Sawyer Estimated Blood Loss (ml): 600 IV fluids (ml): 600 Urine output (ml): 100 Pathology: other (Placenta) Condition: stable Disposition: PACU Operative Findings: Liveborn male infant, long redundant umbilical cord, nuchal cord 1, true knot in the cord. Description of Procedure: Patient is very quickly brought to the operating suite where a general anesthetic is administered without difficulty per Dr. Turner. 2 g of Ancef are given. The abdomen is prepped and draped in usual sterile fashion. A low transverse skin incision is made in this is carried down through the subcutaneous tissue to the fascia. Fascia is isolated, scored, extended bilaterally with curved Flores scissors. Peritoneum was identified and incised, there is no bowel or bladder involvement. Bladder flap is placed over the dome of the bladder and at all times the bladder is Well from the operative field to avoid injury. A low transverse uterine incision is made in this is extended bluntly. 's head is delivered occiput anterior, there was a nuchal cord 1 that was reduced. He should is officially delivered of a liveborn male at 2215 hours. The oropharynx, nasopharynx, and external nares were all bulb suctioned. Patient is handed to waiting nurses for evaluation where scores of 7 and 8 at one and 5 minutes respectively are given. He weighed 6 lbs. 15 oz. or 3150 g. The placentas delivered manually, it is inspected and noted to be intact with trivascular cord at 2215 hours. The uterus is then externalized and massaged. Oxytocin is given. The uterus is swept clean with a sterile sponge to avoid any retained products of conception. Uterus is closed in a two-step fashion using 0 Vicryl suture, first layer running locking, second layer imbricated. Excellent hemostasis is noted. Bilateral tubes and ovaries appear normal to inspection. Surgical's nose placed on the incision. Bilateral gutters are inspected and cleaned after the uterus is placed back into the abdominal cavity. Abdomen is suctioned with suction on guard posterior to the uterus prior to replacement. All edouard are noted to be clean and dry. Fascia is closed in a running fashion using 0 Vicryl suture. Subcutaneous tissue is irrigated, clean and dry. It is reapproximated with 3-0 Vicryl in a running manner. Wide alexys are used for final skin closure. The abdomen is dressed. The uterus is massaged for a small amount of blood. Avila catheter is then placed. All sponge needle and enhancement counts are correct. Patient is brought back to the recovery room in very good condition with stable vital signs. Total estimated blood loss 600 mL's. Placenta is sent to pathology for evaluation. Toradol is given alternating with the affirmative for pain relief secondary to patient's history of Suboxone use daily.
[2020-09-11] MEDS ORDERED: HYDROmorphone PCA 10 MG/50 ML BAG IV PRN (23:46)
[2020-09-12 07:03] LABS: Basophils # (A) 0.1 k/uL (0-0.2); Basophils % (A) 0 %; Eosinophils # (A) 0.2 k/uL (0-0.7); Eosinophils % (A) 1 %; HCT 31.5 % (34.0-46.0); HGB 10.6 gm/dL (11.4-16.0); Lymphocytes # (A) 2.7 k/uL (1.0-4.8); Lymphocytes % (A) 14 %; MCH 31.4 pg (25.0-35.0); MCHC 33.7 g/dL (31.0-37.0); MCV 93.3 fL (80.0-100.0); Mean Platelet Volume 7.9; Monocytes # (A) 1.1 k/uL (0-1.0); Monocytes % (A) 6 %; Neutrophils % (A) 78 %; Platelet Count 295 k/uL (150-450); RBC 3.38 m/uL (3.80-5.40); RDW 13.2 % (11.5-15.5); WBC 19.1 k/uL (3.8-10.6)
[2020-09-12] MEDS: KETOROLAC 15 MG/ML 1 ML VIAL IVP SCH ×3 (07:51→18:29)
[2020-09-12] MEDS: SENNOSIDES-DOCUSATE SODIUM 1 EACH TAB PO SCH ×2 (07:53→20:29)
--- NOTE | 2020-09-12 08:28 | P.PN ---
Subjective Progress Note Date: 09/12/20 Principal diagnosis: Doing well first postoperative day Voiding, ambulating, passing flatus. Pain well controlled. No complaints. Objective - Vital Signs Vital signs: Vital Signs Temp 98.1 F 09/12/20 07:54 Pulse 70 09/12/20 07:54 Resp 16 09/12/20 07:54 BP 103/71 09/12/20 07:54 Pulse Ox 97 09/12/20 07:54 Intake & Output 09/11/20 09/12/20 09/12/20 18:59 06:59 18:59 Output Total 800 100 Balance -800 -100 Weight 73.028 kg Output: Urine 800 100 Uretheral (Avila) 400 Other: Voiding Method Indwelling Catheter # Voids 1 - Constitutional General appearance: Present: cooperative - EENT Eyes: Present: PERRLA ENT: Present: hearing grossly normal - Respiratory Respiratory: bilateral: CTA - Cardiovascular Rhythm: regular - Gastrointestinal General gastrointestinal: Present: normal bowel sounds - Integumentary Integumentary Comment(s): Incision clean and dry, alexys intact. Fundus firm, midline, symmetric, minimally tender. Integumentary: Present: normal - Neurologic Neurologic: Present: CNII-XII intact - Musculoskeletal Musculoskeletal: Present: strength equal bilaterally - Psychiatric Psychiatric: Present: A&O x's 3, intact judgment & insight - Labs CBC & Chem 7: 09/12/20 06:20 Labs: Abnormal Lab Results - Last 24 Hours (Table) 09/11/20 09/12/20 Range/Units 21:45 06:20 WBC 16.3 H 19.1 H (3.8-10.6) k/uL RBC 3.77 L 3.38 L (3.80-5.40) m/uL Hgb 10.6 L (11.4-16.0) gm/dL Hct 31.5 L (34.0-46.0) % Neutrophils # 12.1 H 15.0 H (1.3-7.7) k/uL Monocytes # 1.1 H (0-1.0) k/uL Assessment and Plan Assessment: Doing well first postoperative day Plan: Continue postoperative care. Advanced diet and activity. Time with Patient: Less than 30
[2020-09-12] MEDS: LACTATED RINGERS 1,000 ML IV SCH ×4 (09:37→16:26)
[2020-09-12] MEDS: PENICILLIN G POTASSIUM 2,500,000 UNIT in DEXTROSE 5% IN WATER 100 ML IVPB SCH ×2 (09:38)
[2020-09-12] MEDS: ACETAMINOPHEN TAB 500 MG TAB PO PRN ×2 (11:25→17:29)
[2020-09-12] MEDS: IBUPROFEN 600 MG TAB PO SCH ×2 (13:56→20:29)
[2020-09-12] MEDS: SIMETHICONE 80 MG CHEWABLE PO SCH (15:44)
[2020-09-13] MEDS: IBUPROFEN 600 MG TAB PO SCH ×2 (02:59→14:38)
[2020-09-13] MEDS: SIMETHICONE 80 MG CHEWABLE PO SCH (07:47)
--- NOTE | 2020-09-13 09:26 | P.PNOBGPC ---
Subjective - Subjective Patient reports: Reports appetite normal, Reports voiding normally, Reports pain well controlled, Reports ambulating normally : doing well, in NICU Objective - Vital Signs Latest vital signs: Vital Signs Temp Pulse Resp BP Pulse Ox 09/13/20 04:00 97.3 F L 70 16 110/68 09/12/20 20:00 96.8 F L 68 16 100/63 09/12/20 16:00 98.1 F 79 16 110/71 98 09/12/20 13:23 98.2 F 79 18 105/66 98 09/12/20 12:00 98.2 F 79 16 105/66 98 Intake and Output 09/12/20 09/13/20 09/13/20 22:59 06:59 14:59 Output Total 600 Balance -600 Output: Estimated Blood Loss 600 Other: # Voids 2 1 - Exam Extremities: Present: normal Abdomen: Present: normal appearance, soft. Absent: distention, tenderness Incision: Present: normal, dry, intact Uterus: Present: normal, firm Assessment and Plan (1) Status post section Current Visit: Yes Status: Acute Code(s): Z98.891 - HISTORY OF UTERINE SCAR FROM PREVIOUS SURGERY SNOMED Code(s): 819066479 Plan: Continue routine and postoperative care. The infant remains in the special care nursery for observation regarding potential withdrawal. I have encouraged the patient and the hallways routinely. Her pain is otherwise well controlled and she is performing all activities of daily living.
[2020-09-13 09:30] VITALS: BP 108/67; PULSE 76; RESP 15; TEMP 97.8
--- NOTE | 2020-09-13 12:55 | P.DS ---
Providers Date of admission: 09/11/20 21:26 Expected date of discharge: 09/13/20 Attending physician: Kashif Mckeon Primary care physician: Stated None - Discharge Diagnosis(es) (1) Status post section Current Visit: Yes Status: Acute Hospital Course: The patient is a 30-year-old 6 para 212 admitted at 36+ weeks gestation. She presented from home with strong regular contractions and was noted to be 5-6 cm and in active labor. The bulk of her has been using progesterone injections for history of labor. She additionally did receive betamethasone in the third trimester. She also carries a history of narcotic addiction for which she has been using Suboxone or some similar treatment for narcotics. She had maternal medicine consultation and has had significant testing which has been reassuring throughout the third trimester. On labor and delivery, she underwent artificial rupture of membranes at which time a cord prolapse was noted as well as presentation with a hand. She was taken immediately to the operating room where she underwent an emergent primary low-transverse section and was delivered of a viable 6 lbs. 15 oz. baby boy with Apgars of 7 at 1 minute and 8 at 5 minutes. Her postoperative course has been unremarkable with vital signs remaining stable and her temperature was afebrile throughout. She was deemed stable for discharge on postoperative day #2 was discharged home to follow-up in the office in 3 days for staple removal, 2 weeks for incision check and 6 weeks routinely. Discharge instructions included calling for any significantly increased bleeding or foul- smelling lochia, significantly increased fever or abdominal pain, perineal complaints, breast complaints, incisional complaints, or anything else that concerned her. She is additionally instructed to have nothing in the vagina for at least 6 weeks time to include intercourse and to abstain from any heavy lifting over the same period of time. She was last instructed to do no driving until off of all pain medications or 2 weeks' time, whichever came first. She understood all of her instructions and agrees follow up as noted above. Discharge medications included [id number] analgesic pain medications plus any home medications she may have been taking. She was provided a prescription for Tylenol 3, 1-2 by mouth every 6 hours when necessary pain, #20 dispensed with no refills. Maternal blood type is Rh+ and rubella status is immune. Discharge hemoglobin and hematocrit were 10.6 and 31.5 respectively. Procedures: #1. Artificial rupture of membranes #2. Emergent primary low-transverse section Patient Condition at Discharge: Stable Plan - Discharge Summary New Discharge Prescriptions: No Action buprenorphine HCL [Subutex] 0.5 mg SL BID Discharge Medication List buprenorphine HCL [Subutex] 0.5 mg SL BID 09/11/20 [History] Follow up Appointment(s)/Referral(s): Kashif Mckeon MD [STAFF PHYSICIAN] - 3 Days Patient Instructions/Handouts: (DC) Discharge Disposition: HOME SELF-CARE
[2020-09-13] MEDS: SENNOSIDES-DOCUSATE SODIUM 1 EACH TAB PO SCH (14:49)
--- NOTE | 2020-09-14 11:38 | P.MSEPDOC ---
Presenting Problems - Arrival Data Date of Arrival on Unit: 09/11/20 Time of Arrival on Unit: 21:26 Mode of Transport: Wheelchair - Complaint OB-Reason for Admission/Chief Complaint: Possible Onset of Labor Comment: pt. states consistant contraction since 3:00pm today 1-3 min apart pain 5/10 Medical History - Information : 6 Para: 4 Term: 1 : 2 Abortions: Spontaneous or Elective: 0 Number of Living Children: 3 - Gestational Age Gestational Age by BARON (wks/days): 37 Weeks and 4 Days - History Complications: Smoker, Hx. Substance Abuse Comment: smokes marijuiana and Subutex Review of Systems - Review of Systems Constitutional: No problems Breast: No problems ENT: No problems Cardiovascular: No problems Respiratory: No problems Gastrointestinal: No problems Genitourinary: No problems Musculoskeletal: No problems Neurological: No problems Skin: No problems Vital Signs - Temperature Temperature: 97.8 F Temperature Source: Oral - Pulse Right Brachial Pulse Rate: 76 Pulse Assessment Method: Automatic Cuff - Respirations Respiratory Rate: 15 Oxygen Delivery Method: Room Air - Blood Pressure Right Arm Blood Pressure: 108/67 Blood Pressure Mean: 80 Blood Pressure Source: Automatic Cuff Medical Screen Scoring - Cervical Exam Dilation (cm): 5 Effacement (%): 70 Station: -3 Membranes: Intact - Uterine Contractions Frequency From (mins): 2 Frequency To (mins): 3 Duration From (seconds): 80 Duration To (seconds): 120 Intensity: Strong Resting: Soft to palpation - Assessment - Baby A Baseline FHR: 115 Heart Rate - NICHD Category: Category I (Normal) NST: Reactive Physician Notification - Physician Notified Physician Notified Date: 09/12/20 Physician Notified Time: 21:26 Physician: Annita Sawyer Order Received: Yes - Notification Comment Comment: admit for labor Maternal Triage Index - Maternal Triage Index Presenting for scheduled procedure w/no complaint: No - Stat/Priority 1 Stat Priority 1: No - Urgent/Priority 2 Urgent Priority 2: No - Prompt/Priority 3 Prompt Priority 3: Yes Criteria Met for Priority 3: 36 weeks, with regular contractions every 2-3min and with cervical change - Non-Urgent/Priority 4 Non-Urgent Priority 4: No Disposition - Disposition OB Disposition: Admit Discharge Date: 07/03/21 Discharge Time: 14:48 I agree with the RN Medical Screening Exam: Yes Case reviewed; plan agreed upon as documented in EMR&OBIX.: Yes Diagnosis: LABOR THIRD TRI W DEL THIRD TRI, FETUS 1
== END 2020-09-13 14:50 | disposition home or self-care (01) | DRG 787 ==
LOC: FBPOP 19:55 → 4FBP 21:26
PROVIDERS: ADMIT Obstetrics & Gynecology; ATTEND Obstetrics & Gynecology
PROC: 10D00Z1 Extraction of Products of Conception, Low, Open Approach (ICD-10-PCS; principal; 2020-09-11)
DX: O69.0XX0 Labor and delivery complicated by prolapse of cord, not applicable or unspecified (principal); O99.324 Drug use complicating childbirth; F11.20 Opioid dependence, uncomplicated; O69.2XX0 Labor and delivery complicated by other cord entanglement, with compression, not applicable or unspecified; O69.81X0 Labor and delivery complicated by cord around neck, without compression, not applicable or unspecified; F17.200 Nicotine dependence, unspecified, uncomplicated; J45.909 Unspecified asthma, uncomplicated; O99.334 Smoking (tobacco) complicating childbirth; O99.52 Diseases of the respiratory system complicating childbirth; Z37.0 Single live birth; Z3A.36 36 weeks gestation of pregnancy
CPT/HCPCS: 59025; 85025; 86850; 86900; 86901; 88307; 99213

== ENCOUNTER 2022-11-26 13:04 | Emergency (ER) | payer OTHER ==
[2022-11-26 13:25] LABS: Appearance,Urine Clear (Clear); Bilirubin,Urine Negative (Negative); Blood,Urine Negative (Negative); Color,Urine Light Yellow; Glucose,Urine (UA) Negative (Negative); Ketones,Urine Negative (Negative); Leukocyte Esterase,Urine Negative (Negative); Nitrite,Urine Negative (Negative); PH, Urine 5.5 (5.0-8.0); Protein,Urine Negative (Negative); Specific Gravity,Urine 1.016 (1.001-1.035); Urobilinogen,Urine <2.0 mg/dL (<2.0)
--- NOTE | 2022-11-26 14:28 | ED ---
Female Urogenital HPI - General Chief complaint: Abdominal Pain Stated complaint: 14wk preg-bleeding Time Seen by Provider: 11/26/22 13:57 Source: patient, RN notes reviewed Mode of arrival: ambulatory Limitations: no limitations - History of Present Illness Initial comments: This is a 32 year old female who presents to the emergency department for vagin al bleeding in . Patient is 13 weeks and . States that the spotting started today. She only notices this when she wipes. She has minor associated pelvic cramping. Denies any complications in this thus far. She is a patient of Dr. Mckeon, [facility]. Denies any fevers, chills, sore throat, cough, dyspnea, chest pain, palpitations, nausea, vomiting, diarrhea, back pain, or headaches. MD Complaint: vaginal bleeding Last Menstrual Period: 08/21/22 - Related Data Home Medications Medication Instructions Recorded Confirmed buprenorphine HCL [Subutex] 0.5 mg SL BID 09/11/20 09/11/20 Allergies Allergy/AdvReac Type Severity Reaction Status Date / Time No Known Allergies Allergy Verified 11/26/22 13:08 Review of Systems ROS Statement: Those systems with pertinent positive or pertinent negative responses have been documented in the HPI. ROS Other: All systems not noted in ROS Statement are negative. Past Medical History Past Medical History: Asthma Additional Past Medical History / Comment(s): OB history: 3 miscarriages, 1 NVD at term and 2 vag delivery at 31 weeks at [place]. History of Any Multi-Drug Resistant Organisms: None Reported Past Surgical History: Ear Surgery Past Anesthesia/Blood Transfusion Reactions: No Reported Reaction Past Psychological History: Anxiety, Depression Smoking Status: Current every day smoker - Past Family History Mother Family Medical History: No Reported History Additional Family Medical History / Comment(s): mom had ruptured bowel. General Exam Limitations: no limitations General appearance: alert, in no apparent distress Head exam: Present: atraumatic, normocephalic, normal inspection Respiratory exam: Present: normal lung sounds bilaterally. Absent: respiratory distress, wheezes, rales, rhonchi, stridor Cardiovascular Exam: Present: regular rate, normal rhythm, normal heart sounds. Absent: systolic murmur, diastolic murmur, rubs, gallop, clicks Neurological exam: Present: alert, oriented X3, CN II-XII intact Psychiatric exam: Present: normal affect, normal mood Skin exam: Present: warm, dry, intact, normal color. Absent: rash Course Vital Signs 11/26/22 11/26/22 13:05 15:39 Temperature 98.1 F Pulse Rate 89 72 Respiratory 20 18 Rate Blood Pressure 118/82 112/64 O2 Sat by Pulse 99 99 Oximetry Medical Decision Making - Medical Decision Making This is a 32 year old female who presents to the emergency department for vaginal bleeding in . Was pt. sent in by a medical professional or institution? @ -No Did you speak to anyone other than the patient for history? @ -No Did you review nursing and triage notes? @ -Yes, and I agree, it is accurate with regards to the patient's symptoms. Were old charts reviewed? @ -No Differential Diagnosis? @ -Differential Vaginal Bleeding: Spontaneous , threatened , molar , ectopic , incompetent cervix, placenta previa, uterine rupture, dysfunctional uterine bleeding, hemorrhage, uterine fibroids, malignancy, coagulopathy, PID, cervicitis, adenomyosis, vaginal trauma, this is not meant to be an all- inclusive list. EKG interpreted by me (3pts min.)? @ -Not obtained X-rays interpreted by me (1pt min.)? @ -Not obtained CT interpreted by me (1pt min.)? @ -Not obtained U/S interpreted by me (1pt. min.)? @ -Not interpreted by me What testing was considered but not performed? (CT, X-rays, U/S, labs)? Why? @ -None What meds were considered but not given? Why? @ -None Did you discuss the management of the patient with other professionals? @ -No Did you reconcile home meds? @ -No Was smoking cessation discussed for >3mins.? @ -No Was critical care preformed (if so, how long)? @ -No Were there social determinants of health that impacted care today? How? (Homelessness, low income, unemployed, alcoholism, drug addiction, transportation, low edu. Level, literacy, decrease access to med. care, snf, rehab)? @ -No Was there de-escalation of care discussed even if they declined? (Discuss DNR or withdrawal of care, Hospice)? @ -No What co-morbidities impacted this encounter? (DM, HTN, Smoking, COPD, CAD, Cance r, CVA, Hep., AIDS, mental health diagnosis, sleep apnea, morbid obesity)? @ - Was patient admitted / discharged? @ -Discharged. Lab work obtained revealing leukocytosis and was otherwise nonactionable. Urinalysis negative for signs of infection. Patient is Rh+ and no RhoGAM is indicated. Obstetrics US obtained revealing a single live IUP without any abnormalities. Patient is instructed to have close follow-up with her [facility]. Advised Tylenol as needed for pelvic cramping. Undiagnosed new problem with uncertain prognosis? @ -None Drug Therapy requiring intensive monitoring for toxicity (Heparin, Nitro, Insulin, Cardizem)? @ -None Were any procedures done? @ -None Diagnosis/symptom? @ -Threatened Acute, or Chronic, or Acute on Chronic? @ -Acute Uncomplicated (without systemic symptoms) or Complicated (systemic symptoms)? @ -Uncomplicated Side effects of treatment? @ -None Exacerbation, Progression, or Severe Exacerbation] @ -Not applicable Poses a threat to life or bodily function? @ -Not at this time, however if she were to develop severe bleeding, it could become a threatening issue. Return precautions reviewed in depth, the patient is instructed to return to the emergency department with any new, worsening, or concerning symptoms. Patient verbalized understanding. This case was discussed in detail with the attending ED physician, Dr. Goodrich. Presentation, findings, and treatment plan discussed in detail as well. - Lab Data Result diagrams: 11/26/22 14:15 11/26/22 14:15 Lab Results 11/26/22 11/26/22 11/26/22 Range/Units 13:14 14:15 14:15 WBC 12.0 H (3.8-10.6) k/uL RBC 4.22 (3.80-5.40) m/uL Hgb 13.7 (11.4-16.0) gm/dL Hct 40.8 (34.0-46.0) % MCV 96.6 (80.0-100.0) fL MCH 32.4 (25.0-35.0) pg MCHC 33.5 (31.0-37.0) g/dL RDW 13.4 (11.5-15.5) % Plt Count 290 (150-450) k/uL MPV 7.7 Neutrophils % 81 % Lymphocytes % 12 % Monocytes % 5 % Eosinophils % 1 % Basophils % 0 % Neutrophils # 9.7 H (1.3-7.7) k/uL Lymphocytes # 1.5 (1.0-4.8) k/uL Monocytes # 0.5 (0-1.0) k/uL Eosinophils # 0.1 (0-0.7) k/uL Basophils # 0.0 (0-0.2) k/uL Sodium 133 L (137-145) mmol/L Potassium 4.5 (3.5-5.1) mmol/L Chloride 104 (98-107) mmol/L Carbon Dioxide 22 (22-30) mmol/L Anion Gap 7 mmol/L BUN 7 (7-17) mg/dL Creatinine 0.51 L (0.52-1.04) mg/dL Est GFR (CKD-EPI)AfAm >90 (>60 ml/min/1.73 sqM) Est GFR (CKD-EPI)NonAf >90 (>60 ml/min/1.73 sqM) Glucose 90 (74-99) mg/dL Calcium 9.6 (8.4-10.2) mg/dL Total Bilirubin 0.4 (0.2-1.3) mg/dL AST 21 (14-36) U/L ALT 12 (4-34) U/L Alkaline Phosphatase 46 (38-126) U/L Total Protein 7.2 (6.3-8.2) g/dL Albumin 4.1 (3.5-5.0) g/dL HCG, Quant 37225.4 mIU/mL Urine Color Light Yellow Urine Appearance Clear (Clear) Urine pH 5.5 (5.0-8.0) Ur Specific [place] 1.016 (1.001-1.035) Urine Protein Negative (Negative) Urine Glucose (UA) Negative (Negative) Urine Ketones Negative (Negative) Urine Blood Negative (Negative) Urine Nitrite Negative (Negative) Urine Bilirubin Negative (Negative) Urine Urobilinogen <2.0 (<2.0) mg/dL Ur Leukocyte Esterase Negative (Negative) Influenza Type A (PCR) (Not Detectd) Influenza Type B (PCR) (Not Detectd) RSV (PCR) (Not Detectd) SARS-CoV-2 (PCR) (Not Detectd) 11/26/22 Range/Units 14:17 WBC (3.8-10.6) k/uL RBC (3.80-5.40) m/uL Hgb (11.4-16.0) gm/dL Hct (34.0-46.0) % MCV (80.0-100.0) fL MCH (25.0-35.0) pg MCHC (31.0-37.0) g/dL RDW (11.5-15.5) % Plt Count (150-450) k/uL MPV Neutrophils % % Lymphocytes % % Monocytes % % Eosinophils % % Basophils % % Neutrophils # (1.3-7.7) k/uL Lymphocytes # (1.0-4.8) k/uL Monocytes # (0-1.0) k/uL Eosinophils # (0-0.7) k/uL Basophils # (0-0.2) k/uL Sodium (137-145) mmol/L Potassium (3.5-5.1) mmol/L Chloride (98-107) mmol/L Carbon Dioxide (22-30) mmol/L Anion Gap mmol/L BUN (7-17) mg/dL Creatinine (0.52-1.04) mg/dL Est GFR (CKD-EPI)AfAm (>60 ml/min/1.73 sqM) Est GFR (CKD-EPI)NonAf (>60 ml/min/1.73 sqM) Glucose (74-99) mg/dL Calcium (8.4-10.2) mg/dL Total Bilirubin (0.2-1.3) mg/dL AST (14-36) U/L ALT (4-34) U/L Alkaline Phosphatase (38-126) U/L Total Protein (6.3-8.2) g/dL Albumin (3.5-5.0) g/dL HCG, Quant mIU/mL Urine Color Urine Appearance (Clear) Urine pH (5.0-8.0) Ur Specific [place] (1.001-1.035) Urine Protein (Negative) Urine Glucose (UA) (Negative) Urine Ketones (Negative) Urine Blood (Negative) Urine Nitrite (Negative) Urine Bilirubin (Negative) Urine Urobilinogen (<2.0) mg/dL Ur Leukocyte Esterase (Negative) Influenza Type A (PCR) Not Detected (Not Detectd) Influenza Type B (PCR) Not Detected (Not Detectd) RSV (PCR) Not Detected (Not Detectd) SARS-CoV-2 (PCR) Not Detected (Not Detectd) - Radiology Data Radiology results: report reviewed, image reviewed Disposition Clinical Impression: Vaginal bleeding during Disposition: HOME SELF-CARE Additional Instructions: Return to the emergency department with any new, worsening, or concerning symptoms. Take Tylenol as needed for pelvic cramping. Follow-up with Dr. Mckeon. Is patient prescribed a controlled substance at d/c from ED?: No Referrals: Kaley Hdz MD [Primary Care Provider] - 1-2 days Kashif Mckeon MD [STAFF PHYSICIAN] - 1-2 days
[2022-11-26 14:38] LABS: Basophils % (A) 0 %; Eosinophils # (A) 0.1 k/uL (0-0.7); Eosinophils % (A) 1 %; HCT 40.8 % (34.0-46.0); HGB 13.7 gm/dL (11.4-16.0); Lymphocytes # (A) 1.5 k/uL (1.0-4.8); Lymphocytes % (A) 12 %; MCH 32.4 pg (25.0-35.0); MCHC 33.5 g/dL (31.0-37.0); MCV 96.6 fL (80.0-100.0); Mean Platelet Volume 7.7; Monocytes # (A) 0.5 k/uL (0-1.0); Monocytes % (A) 5 %; Neutrophils # (A) 9.7 k/uL (1.3-7.7); Neutrophils % (A) 81 %; Platelet Count 290 k/uL (150-450); RBC 4.22 m/uL (3.80-5.40); RDW 13.4 % (11.5-15.5)
[2022-11-26 14:42] LABS: ALT 12 U/L (4-34); AST 21 U/L (14-36); African American GFR (CKD) >90 (>60 ml/min/1.73 sqM); Albumin 4.1 g/dL (3.5-5.0); Alkaline Phosphatase 46 U/L (38-126); Anion Gap 7 mmol/L; Blood Urea Nitrogen 7 mg/dL (7-17); Calcium 9.6 mg/dL (8.4-10.2); Carbon Dioxide 22 mmol/L (22-30); Chloride 104 mmol/L (98-107); Glucose 90 mg/dL (74-99); Non-African American GFR(CKD) >90 (>60 ml/min/1.73 sqM); Potassium 4.5 mmol/L (3.5-5.1); Sodium 133 mmol/L (137-145); Total Bilirubin 0.4 mg/dL (0.2-1.3); Total Protein 7.2 g/dL (6.3-8.2)
--- NOTE | 2022-11-26 14:59 | US ---
EXAMINATION TYPE: Ultrasound OB <= 14 week fetus DATE OF EXAM: 11/26/2022 2:41 PM COMPARISON: NONE CLINICAL INDICATION: Female, 32 years old with history of Vaginal bleeding, 14 weeks ; Pt sta kendall light vaginal bleeding wiping EXAM PERFORMED: Transabdominal (TA) EXAM MEASUREMENTS: GESTATIONAL AGE / DATING Physician Established: (13 weeks/5 days) EDC: 05/29/2023 Dates by LMP: LMP unknown Dates by First Scan: No previous this is first scan Dates by Current Scan for: (14 weeks/1 days) EDC: 05/26/2023 MATERNAL ANATOMY Uterus: 13.1 x 6.6 x 10.9 cm Right Ovary: 3.4 x 1.9 x 2.6 cm Left Ovary: 3.0 x 2.1 x 1.8 cm Post CDS / Adnexa: wnl Presence of free fluid: No Presence of subchorionic bleed: No GESTATION / SURVEY CRL: 8.2 cm (14 weeks/1 days) MSD: wnl Heart Rate: 143 bpm Rhythm: Normal IUP: Viable IUP EYE CARE PROFESSIONAL NOTES: Single, viable IUP/ No abnormality visualized at this time IMPRESSION: 1. Single live intrauterine with physician established gestational age of 13 weeks 5 days. Current ultrasound biometry is minimally larger at 14 weeks 1 day. 2. Incomplete survey recommended at 18-20 weeks.
[2022-11-26 15:27] LABS: HCG,Quantitative Serum 48936.4 mIU/mL
[2022-11-26 15:31] VITALS: TEMP 98.1
[2022-11-26 15:41] VITALS: BP 112/64; PULSE 72; RESP 18
== END 2022-11-26 15:40 | disposition home or self-care (01) ==
LOC: EC 13:04
DX: O46.91 Antepartum hemorrhage, unspecified, first trimester (principal); O99.511 Diseases of the respiratory system complicating pregnancy, first trimester; N93.9 Abnormal uterine and vaginal bleeding, unspecified; J45.909 Unspecified asthma, uncomplicated; Z86.59 Personal history of other mental and behavioral disorders; Z20.822 Contact with and (suspected) exposure to COVID-19; Z3A.14 14 weeks gestation of pregnancy
CPT/HCPCS: 36415; 76801; 80053; 81003; 84702; 85025; 87636; 99284

== ENCOUNTER 2023-02-18 12:32 | Outpatient (CLI) | payer OTHER ==
[2023-02-18 15:00] LABS: Amorphous Sediment,Urine Rare /hpf; Bacteria,Urine Rare /hpf; Budding Yeast,Urine Occasional /hpf; Mucus,Urine Few /hpf; RBC,Urine 1 /hpf (0-5); Squamous Epithelial Cell,Urine 1 /hpf (0-4); WBC,Urine 5 /hpf (0-5)
[2023-02-18 15:03] LABS: Appearance,Urine Cloudy (Clear); Bilirubin,Urine Negative (Negative); Blood,Urine Negative (Negative); Color,Urine Yellow; Glucose,Urine (UA) Negative (Negative); Ketones,Urine Negative (Negative); Leukocyte Esterase,Urine Negative (Negative); Nitrite,Urine Negative (Negative); PH, Urine 7.5 (5.0-8.0); Protein,Urine Negative (Negative); Specific Gravity,Urine 1.015 (1.001-1.035); Urobilinogen,Urine 0.2 mg/dL (<2.0)
[2023-02-18 16:13] VITALS: BP 111/77; PULSE 82; RESP 18; TEMP 97.6
--- NOTE | 2023-02-19 11:48 | P.MSEPDOC ---
Presenting Problems - Arrival Data Date of Arrival on Unit: 02/18/23 Time of Arrival on Unit: 12:32 Mode of Transport: Ambulatory - Complaint OB-Reason for Admission/Chief Complaint: Other Comment: Pt arrives today with complaints of contractions about 10 minutes apart that pt states take her breath away. pt states she feels them about every 10 minutes. Medical History - Information : 7 Para: 4 Term: 1 : 3 Abortions: Spontaneous or Elective: 0 Number of Living Children: 4 - Gestational Age Gestational Age by BARON (wks/days): 25 Weeks and 4 Days Review of Systems - Review of Systems Constitutional: No problems Breast: No problems ENT: No problems Cardiovascular: No problems Respiratory: No problems Gastrointestinal: No problems Genitourinary: No problems Musculoskeletal: No problems Neurological: No problems Skin: No problems Vital Signs - Temperature Temperature: 97.6 F Temperature Source: Temporal Artery Scan - Pulse Right Pulse Oximetery Pulse Rate: 82 Pulse Assessment Method: Pulse Oximetry - Respirations Respiratory Rate: 18 Oxygen Delivery Method: Room Air O2 Sat by Pulse Oximetry: 99 - Blood Pressure Right Arm Blood Pressure: 111/77 Blood Pressure Mean: 88 Blood Pressure Source: Automatic Cuff Medical Screen Scoring - Cervical Exam Dilation (cm): 0 Effacement (%): 0 Station: -4 Membranes: Intact - Uterine Contractions Frequency From (mins): 0 Frequency To (mins): 0 - Assessment - Baby A Baseline FHR: 130 Heart Rate - NICHD Category: Category I (Normal) NST: Reactive Maternal Triage Index - Maternal Triage Index Presenting for scheduled procedure w/no complaint: No - Stat/Priority 1 Stat Priority 1: No - Urgent/Priority 2 Urgent Priority 2: Yes Provider Notified: Kashif Mckeon Provider Notified Time: 12:55 Criteria Met for Priority 2: complaints of contractions 25 5/7 weeks gestation Disposition - Disposition OB Disposition: Discharge to home Discharge Date: 02/18/23 Discharge Time: 15:30 I agree with the RN Medical Screening Exam: Yes Physician's MSE Comment: I have neither seen nor examined the patient. Case reviewed; plan agreed upon as documented in EMR&OBIX.: Yes Diagnosis: RELATED CONDITIONS, UNSPECIFIED, SECOND TRIMESTER
== END 2023-02-18 15:30 | disposition home or self-care (01) ==
LOC: FBPOP 12:32
PROVIDERS: ATTEND Obstetrics & Gynecology
DX: O62.9 Abnormality of forces of labor, unspecified (principal); O99.332 Smoking (tobacco) complicating pregnancy, second trimester; F17.200 Nicotine dependence, unspecified, uncomplicated; Z3A.25 25 weeks gestation of pregnancy
CPT/HCPCS: 82731; 81001; G0463; 99213

== ENCOUNTER 2023-04-11 14:54 | Outpatient (CLI) | payer OTHER ==
[2023-04-11 16:17] LABS: Appearance,Urine Cloudy (Clear); Bacteria,Urine Few /hpf; Bilirubin,Urine Negative (Negative); Blood,Urine Negative (Negative); Budding Yeast,Urine Moderate /hpf; Color,Urine Yellow; Glucose,Urine (UA) Negative (Negative); Ketones,Urine Negative (Negative); Leukocyte Esterase,Urine Large (Negative); Mucus,Urine Many /hpf; Nitrite,Urine Negative (Negative); PH, Urine 6.5 (5.0-8.0); Protein,Urine 1+ (Negative); RBC,Urine 8 /hpf (0-5); Specific Gravity,Urine 1.025 (1.001-1.035); Squamous Epithelial Cell,Urine 6 /hpf (0-4); WBC,Urine >182 /hpf (0-5)
[2023-04-11 17:29] VITALS: BP 129/80; PULSE 103; RESP 18; TEMP 98.1
--- NOTE | 2023-04-17 11:15 | P.MSEPDOC ---
Presenting Problems - Arrival Data Date of Arrival on Unit: 04/11/23 Time of Arrival on Unit: 14:54 Mode of Transport: Ambulatory - Complaint OB-Reason for Admission/Chief Complaint: Decreased Movement, Signs/Symptoms UTI Medical History - Information : 7 Para: 4 Term: 1 : 3 Abortions: Spontaneous or Elective: 2 Number of Living Children: 4 - Gestational Age Gestational Age by BARON (wks/days): 33 Weeks and 0 Days - History Complications: Prior , Prior Review of Systems - Review of Systems Constitutional: No problems Breast: No problems ENT: No problems Cardiovascular: No problems Respiratory: No problems Gastrointestinal: No problems Genitourinary: Urgency, Increased frequency Musculoskeletal: No problems Neurological: No problems Skin: No problems Vital Signs - Temperature Temperature: 98.1 F Temperature Source: Temporal Artery Scan - Pulse Right Pulse Oximetery Pulse Rate: 103 Pulse Assessment Method: Pulse Oximetry - Respirations Respiratory Rate: 18 Oxygen Delivery Method: Room Air O2 Sat by Pulse Oximetry: 95 - Blood Pressure Right Arm Blood Pressure: 129/80 Blood Pressure Mean: 96 Blood Pressure Source: Automatic Cuff Medical Screen Scoring - Uterine Contractions Frequency From (mins): 0 Frequency To (mins): 0 - Assessment - Baby A Baseline FHR: 115 Heart Rate - NICHD Category: Category I (Normal) NST: Reactive Physician Notification - Physician Notified Physician Notified Date: 04/11/23 Physician Notified Time: 15:25 Physician: Kashif Mckeon New Order Received: Yes (UA ordered, following results of urine, atb called in by physician& pt D/Cd) Maternal Triage Index - Maternal Triage Index Presenting for scheduled procedure w/no complaint: No - Stat/Priority 1 Stat Priority 1: No - Urgent/Priority 2 Urgent Priority 2: Yes Provider Notified: Kashif Mckeon Provider Notified Time: 15:25 Criteria Met for Priority 2: Complaints of decreased movement. Disposition - Disposition OB Disposition: Discharge to home Discharge Date: 04/11/23 Discharge Time: 14:45 I agree with the RN Medical Screening Exam: Yes Physician's MSE Comment: I have neither seen nor examined the patient. Case reviewed; plan agreed upon as documented in EMR&OBIX.: Yes Diagnosis: RELATED CONDITIONS, UNSPECIFIED, THIRD TRIMESTER
== END 2023-04-11 16:45 | disposition home or self-care (01) ==
LOC: FBPOP 14:54
PROVIDERS: ATTEND Obstetrics & Gynecology
DX: O36.8131 Decreased fetal movements, third trimester, fetus 1 (principal); O99.333 Smoking (tobacco) complicating pregnancy, third trimester; F17.200 Nicotine dependence, unspecified, uncomplicated; O99.323 Drug use complicating pregnancy, third trimester; F12.90 Cannabis use, unspecified, uncomplicated; Z3A.33 33 weeks gestation of pregnancy
CPT/HCPCS: 59025; 81001; 87086; 87077; 87186; G0463; 99213

== ENCOUNTER 2023-05-09 21:32 | Inpatient (IN) | payer OTHER ==
[2023-05-09] MEDS ORDERED: TERBUTALINE 1 MG/ML VIAL SQ PRN (23:18)
[2023-05-09] MEDS ORDERED: OXYTOCIN 10 UNIT/ML 1 ML VIAL IM PRN (23:18)
[2023-05-09] MEDS ORDERED: METHYLERGONOVINE 0.2 MG/ML 1 ML AMP IM PRN (23:18)
[2023-05-09] MEDS ORDERED: LIDOCAINE 0.5% (PF) 5 MG/ML (50 ML SDV) SQ PRN (23:18)
[2023-05-09] MEDS ORDERED: miSOPROStoL 200 MCG TAB PO PRN (23:18)
[2023-05-09] MEDS ORDERED: TRANEXAMIC 1,000 MG/100ML-NACL 1,000 MG in EMPTY BAG 1 BAG IV PRN (23:18)
[2023-05-09] MEDS ORDERED: CARBOPROST TROMETHAMINE 250 MCG/ML 1 ML AMP IM PRN (23:18)
[2023-05-09] MEDS ORDERED: OXYTOCIN 30 UNITS/500 ML NS 30 UNIT in SALINE 1 500ML.BAG IV SCH (23:30)
[2023-05-09 23:37] LABS: Basophils # (A) 0.1 k/uL (0-0.2); Basophils % (A) 0 %; Eosinophils # (A) 0.4 k/uL (0-0.7); Eosinophils % (A) 2 %; HCT 32.6 % (34.0-46.0); HGB 10.5 gm/dL (11.4-16.0); Lymphocytes # (A) 2.4 k/uL (1.0-4.8); Lymphocytes % (A) 12 %; MCHC 32.4 g/dL (31.0-37.0); MCV 89.7 fL (80.0-100.0); Mean Platelet Volume 8.6; Monocytes # (A) 0.9 k/uL (0-1.0); Monocytes % (A) 5 %; Neutrophils # (A) 15.9 k/uL (1.3-7.7); Neutrophils % (A) 79 %; Platelet Count 328 k/uL (150-450); RBC 3.63 m/uL (3.80-5.40); RDW 14.1 % (11.5-15.5); WBC 20.1 k/uL (3.8-10.6)
[2023-05-09 23:43] VITALS: RESP 16
[2023-05-09] MEDS: LACTATED RINGERS 1,000 ML IV SCH (23:44)
[2023-05-09 23:58] LABS: Cocaine Screen,Urine Not Detected (NotDetected); Phencyclidine Screen,Urine Not Detected (NotDetected); Urn Cannabinoid Scrn Detected (NotDetected)
[2023-05-09 23:59] LABS: Amphetamine Screen,Urine Not Detected (NotDetected); Barbiturate Screen,Urine Not Detected (NotDetected); Benzodiazepines Screen,Urine Not Detected (NotDetected); Methadone Screen, Urine Not Detected (NotDetected); Opiate Screen,Urine Not Detected (NotDetected); Oxycodone Screen, Urine Not Detected (NotDetected); Tricyclic Antidepressant,Urine Not Detected (NotDetected)
[2023-05-10] MEDS ORDERED: ROPIVACAINE 5 MG/ML 30 ML VIAL ONE (00:15)
[2023-05-10] MEDS ORDERED: SODIUM CHLORIDE 0.9% 250 ML BAG ONE (00:15)
[2023-05-10] MEDS ORDERED: fentaNYL (PF) 50 MCG/ML 5 ML AMP ONE (00:15)
--- NOTE | 2023-05-10 04:54 | P.HPOB ---
History of Present Illness H&P Date: 05/10/23 Chief Complaint: Contractions Ms. Gillespie is a 32 year old at 37 weeks and 1 day with EDC of 05/30/2023 by week who presents in spontaneous labor. her labor has been complicated by polyhydramnios for which she has been having weekly non-stress tests for surveillance. The fetus is also large for gestational age and estimated to be approximately 8 pounds. 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 The patient plans to TOLAC for this . Obstetric history: 3 deliveries, history of 1 section for umbilical cord prolapse during amniotomy in labor with her last child. work-up: blood type B positive, antibody negative, rubella immune, VDRL non-reactive, HBsAg negative, HIV negative, HCV Ab negative, gonorrhea negative, chlamydia negative, 1 hour GTT elevated > 3 hour GTT within normal limits, positive GBS in urine culture at new OB appointment and negative GBS vaginore ctal culture at 36 weeks. Past Medical History Past Medical History: Asthma Additional Past Medical History / Comment(s): OB history: 3 miscarriages, 1 NVD at term and 2 vag delivery at 31 weeks at [place]. History of Any Multi-Drug Resistant Organisms: None Reported Past Surgical History: Ear Surgery Past Anesthesia/Blood Transfusion Reactions: No Reported Reaction Past Psychological History: Anxiety, Depression Smoking Status: Never smoker Past Alcohol Use History: None Reported Past Drug Use History: Marijuana - Past Family History Mother Family Medical History: No Reported History Additional Family Medical History / Comment(s): mom had ruptured bowel. Medications and Allergies Home Medications Medication Instructions Recorded Confirmed Type Tvt-[id number]-Blvcx Acid 1 cap PO DAILY 12/06/22 05/09/23 History [-U Capsule (formulary)] Allergies Allergy/AdvReac Type Severity Reaction Status Date / Time No Known Allergies Allergy Verified 05/09/23 09:12 Exam Vital Signs Temp Pulse Resp BP Pulse Ox 05/09/23 21:37 97.8 F 105 H 16 126/77 97 Intake and Output 05/09/23 05/09/23 05/10/23 14:59 22:59 06:59 Other: Weight 83.915 kg 83.915 kg Focused physical exam is performed. This is a healthy-appearing in no apparent distress. Breathing is non-labored. Abdomen is gravid. Cervical exam is 7 centimeters, 70% effaced, and -2 station. AROM is undertaken revealing clear fluid. Extremities are non-tender and non-edematous. FHTs are Category I and contractions are every 3-5 minutes. Results Result Diagrams: 05/09/23 23:25 Abnormal Lab Results - Last 24 Hours (Table) 05/09/23 05/09/23 Range/Units 23:11 23:25 WBC 20.1 H (3.8-10.6) k/uL RBC 3.63 L (3.80-5.40) m/uL Hgb 10.5 L (11.4-16.0) gm/dL Hct 32.6 L (34.0-46.0) % Neutrophils # 15.9 H (1.3-7.7) k/uL U Marijuana (THC) Screen Detected H (NotDetected) Assessment and Plan Assessment: 32 year old at 37 weeks presents in labor Plan: Admit, clear liquid diet, s/p AROM, expectant management, continuous monitoring and tocometer, close monitoring of patient Time with Patient: Less than 30
[2023-05-10] MEDS: PENICILLIN G POTASSIUM 5,000,000 UNIT in DEXTROSE 5% IN WATER 100 ML IVPB ONE (05:09)
[2023-05-10] MEDS: OXYTOCIN 30 UNITS/500 ML NS 30 UNIT in SALINE 1 500ML.BAG IV SCH (11:20)
[2023-05-10] MEDS ORDERED: ACETAMINOPHEN TAB 325 MG TAB PO PRN (11:36)
[2023-05-10] MEDS ORDERED: SIMETHICONE 80 MG CHEWABLE PO PRN (11:36)
[2023-05-10] MEDS ORDERED: diphenhydrAMINE 50 MG/ML 1 ML VIAL IVP PRN ×2 (11:36)
[2023-05-10] MEDS ORDERED: diphenhydrAMINE 25 MG CAP PO PRN (11:36)
[2023-05-10] MEDS ORDERED: HYDROcodone/APAP 5-325MG 1 EACH TAB PO PRN (11:36)
[2023-05-10] MEDS ORDERED: diphenhydrAMINE 50 MG CAP PO PRN (11:36)
[2023-05-10] MEDS ORDERED: LANOLIN CREAM 1 GM TUBE TOPICAL PRN (11:36)
[2023-05-10] MEDS ORDERED: HYDROCORTISONE 2.5% RECTAL CREAM 30 GM TUBE RECTAL PRN (11:36)
[2023-05-10] MEDS ORDERED: HYDROcodone/APAP 7.5-325MG 1 EACH TAB PO PRN (11:36)
[2023-05-10] MEDS: ROPIVACAINE 225 MG, fentaNYL (PF). 450 MCG in SODIUM CHLORIDE 0.9% 171 ML EPIDURAL ONE (11:40)
[2023-05-10] MEDS: BENZOCAINE/MENTHOL SPRAY 1 GM/SPRAY AEROSOL TOPICAL PRN (11:41)
--- NOTE | 2023-05-10 11:41 | P.PROBDLV ---
Vaginal Delivery Note - . Vaginal Delivery Note: The patient is a 32-year-old 7 para 1-3-2-4 who was admitted to this at 37-2/7 weeks by good dating parameters in active labor with all signs reassuring. Her this has been essentially uncomplicated though she has a history of several deliveries in the past. She was found at near term in the third trimester to have polyhydramnios for which she had reassuring weekly testing. She also was noted to be group B strep positive. As a result, she had antibiotic prophylaxis started and underwent artificial rupture of membranes for clear fluid. She made relatively slow progress through the last portion of the active phase of labor but ultimately progressed to complete after which time she pushed over the course of 1-2 contractions to a normal spontaneous vaginal delivery of a viable 7 pound 2 ounce baby boy with Apgars of 8 at 1 minute and 9 at 5 minutes delivered in the left occiput anterior position. There was a loose nuchal cord x 1 which was reduced following delivery of the infant. The placenta was delivered spontaneously, intact, and grossly normal with a grossly normal, centrally inserted three-vessel cord. There was a very small first-degree left perineal/labial flap of skin which was tacked down with a single interrupted stitch of 3-0 chromic catgut without difficulty. Estimated blood loss for the case was approximately 200 cc. There were no complications. All sponge, instrument, and needle counts were correct. Both mother and infant are resting comfortably in recovery.
[2023-05-10] MEDS: IBUPROFEN 600 MG TAB PO PRN (18:08)
[2023-05-10] MEDS: SENNOSIDES-DOCUSATE SODIUM 1 EACH TAB PO SCH (19:52)
[2023-05-10] MEDS: ZOLPIDEM 5 MG TAB PO PRN (21:28)
[2023-05-11 07:23] LABS: Basophils # (A) 0.1 k/uL (0-0.2); Basophils % (A) 1 %; Eosinophils # (A) 0.5 k/uL (0-0.7); Eosinophils % (A) 3 %; HCT 29.3 % (34.0-46.0); HGB 10.7 gm/dL (11.4-16.0); Hypochromasia Slight; Lymphocytes # (A) 2.5 k/uL (1.0-4.8); Lymphocytes % (A) 13 %; MCH 33.1 pg (25.0-35.0); MCHC 36.6 g/dL (31.0-37.0); MCV 90.3 fL (80.0-100.0); Mean Platelet Volume 8.5; Monocytes % (A) 5 %; Neutrophils # (A) 14.2 k/uL (1.3-7.7); Neutrophils % (A) 76 %; Platelet Count 296 k/uL (150-450); RBC 3.24 m/uL (3.80-5.40); RDW 14.2 % (11.5-15.5); WBC 18.7 k/uL (3.8-10.6)
[2023-05-11 08:14] VITALS: BP 133/70; PULSE 70; TEMP 98.2
--- NOTE | 2023-05-11 08:55 | P.DS ---
Providers Date of admission: 05/09/23 22:40 Expected date of discharge: 05/11/23 Attending physician: Kashif Mckeon Primary care physician: Stated None - Discharge Diagnosis(es) (1) Vaginal after section Current Visit: Yes Status: Acute Hospital Course: The patient is a 32-year-old 6 para 1324 admitted at 37 weeks by good dating parameters in active labor. Her has been complicated only by finding of polyhydramnios in the late third trimester for which she had reassuring testing on a weekly basis following the diagnosis. She does carry history of a previous section and requested vaginal trial of labor. She also has had several deliveries but has had no problems with labor this . Group B strep status is positive. On labor and delivery, she had antibiotic prophylaxis started and underwent artificial rupture of membranes for clear fluid. She had an epidural catheter placed for analgesia and progressed relatively slowly through the last portion of the active phase of labor but ultimately reach complete. She then pushed quickly to a normal spontaneous vaginal delivery of a viable 7 pound 2 ounce baby boy with Apgars of 8 at 1 minute and 9 at 5 minutes. Her course was unremarkable with vital signs remaining stable and her temperature was afebrile throughout. The was taken to the special care nursery secondary to issues with oxygenation and remains in the nursery at this time on supplemental oxygen. She was deemed stable for discharge on day #1 and was discharged home to follow-up in the office in 6 weeks time routinely. Discharge instructions included calling for any significantly increased bleeding or foul- smelling lochia, significantly increased fever or abdominal pain, perineal complaints, breast complaints, or anything else that concerned her. She was additionally instructed to have nothing in the vagina for at least 6 weeks time to include intercourse. She understood her instructions and agrees to follow-up as noted above. Discharge medications included continued vitamins as she has opted to breast-feed. She is otherwise to use [id number] analgesic pain medications as needed. Maternal blood type is B+ and rubella status is immune. Procedures: #1. Antibiotic prophylaxis #2. Epidural analgesia #3. Normal spontaneous vaginal delivery, successful #4. Repair of first-degree perineal laceration Patient Condition at Discharge: Stable Plan - Discharge Summary New Discharge Prescriptions: No Action Sde-Pfre-Vhgvh Acid [-U Capsule (formulary)] 1 cap PO DAILY Discharge Medication List Mqi-Fino-Vmybm Acid [-U Capsule (formulary)] 1 cap PO DAILY 12/06/22 [History] Follow up Appointment(s)/Referral(s): Kashif Mckeon MD [STAFF PHYSICIAN] - 6 Weeks Discharge Disposition: HOME SELF-CARE
== END 2023-05-11 11:32 | disposition home or self-care (01) | DRG 560 ==
LOC: FBPOP 21:32 → 4FBP 22:40
PROVIDERS: ADMIT Obstetrics & Gynecology; ATTEND Obstetrics & Gynecology
PROC: 10E0XZZ Delivery of Products of Conception, External Approach (ICD-10-PCS; principal; 2023-05-10)
PROC: 0HQ9XZZ Repair Perineum Skin, External Approach (ICD-10-PCS; 2023-05-10)
PROC: 10907ZC Drainage of Amniotic Fluid, Therapeutic from Products of Conception, Via Natural or Artificial Opening (ICD-10-PCS; 2023-05-10)
DX: O34.211 Maternal care for low transverse scar from previous cesarean delivery (principal); O36.63X0 Maternal care for excessive fetal growth, third trimester, not applicable or unspecified; O70.0 First degree perineal laceration during delivery; O69.81X0 Labor and delivery complicated by cord around neck, without compression, not applicable or unspecified; F32.A Depression, unspecified; F41.9 Anxiety disorder, unspecified; J45.909 Unspecified asthma, uncomplicated; Z37.0 Single live birth; O99.824 Streptococcus B carrier state complicating childbirth; O99.344 Other mental disorders complicating childbirth; O40.3XX0 Polyhydramnios, third trimester, not applicable or unspecified; O99.52 Diseases of the respiratory system complicating childbirth; Z3A.37 37 weeks gestation of pregnancy
CPT/HCPCS: 59025; 80306; 85025; 86850; 86900; 86901; 99213

== ENCOUNTER 2024-07-01 13:20 | Emergency (ER) | payer OTHER ==
[2024-07-01 13:26] VITALS: RESP 18; TEMP 97.9
--- NOTE | 2024-07-01 13:43 | ED ---
General Adult HPI - General Chief complaint: Chest Pain Stated complaint: chest pain, dizziness, lips tingiling Time Seen by Provider: 07/01/24 13:29 Source: patient Mode of arrival: ambulatory Limitations: no limitations - History of Present Illness Initial comments: This patient is a 33-year-old woman who presents to have evaluation for constellation of as well as that been going on for 5 to 6 days. Patient states that she initially was having some cold like symptoms, patient and cough, as well as aching in her chest and back that was shortly thereafter followed by nausea, vomiting, diarrhea. She has had about 4 to 5 days of vomiting and diarr hea that stopped yesterday. She did not note any hematemesis or coffee-ground emesis. No bloody or tarry stools. Patient states she was also not really having significant abdominal pains accompanying. Since that time she has had decreased appetite and is not taking much in the way of food or fluids. She now is feeling lightheaded. She states that 3 times today she felt warm and lightheaded like she was going to pass out. She does not note fever or chills. -: days(s) Location: chest, back Radiation: non-radiation Quality: aching Consistency: other Improves with: none Worsens with: none Associated Symptoms: cough, nausea/vomiting Treatments Prior to Arrival: none - Related Data Home Medications Medication Instructions Recorded Confirmed [id number] Acid 1 cap PO DAILY 12/06/22 05/09/23 [-U Capsule (formulary)] Allergies Allergy/AdvReac Type Severity Reaction Status Date / Time No Known Allergies Allergy Verified 07/01/24 13:26 Review of Systems ROS Statement: Those systems with pertinent positive or pertinent negative responses have been documented in the HPI. ROS Other: All systems not noted in ROS Statement are negative. Constitutional: Denies: fever, chills ENT: Reports: congestion Respiratory: Reports: cough. Denies: dyspnea, wheezes, hemoptysis Cardiovascular: Reports: chest pain. Denies: palpitations, orthopnea, edema, syncope Gastrointestinal: Reports: nausea, vomiting, diarrhea. Denies: abdominal pain, constipation, hematemesis, melena, hematochezia Genitourinary: Denies: dysuria, hematuria, abnormal menses Musculoskeletal: Reports: back pain Skin: Denies: rash Neurological: Denies: headache, weakness Psychiatric: Reports: anxiety Past Medical History Past Medical History: Asthma Additional Past Medical History / Comment(s): OB history: 3 miscarriages, 1 NVD at term and 2 vag delivery at 31 weeks at [facility]. History of Any Multi-Drug Resistant Organisms: None Reported Past Surgical History: Ear Surgery Past Anesthesia/Blood Transfusion Reactions: No Reported Reaction Past Psychological History: Anxiety, Depression Smoking Status: Never smoker Past Alcohol Use History: None Reported Past Drug Use History: Marijuana - Past Family History Mother Family Medical History: No Reported History Additional Family Medical History / Comment(s): mom had ruptured bowel. General Exam Limitations: no limitations General appearance: alert, in no apparent distress Head exam: Present: atraumatic, normocephalic Eye exam: Present: normal appearance. Absent: scleral icterus, conjunctival injection ENT exam: Present: normal oropharynx, mucous membranes moist Neck exam: Present: normal inspection Respiratory exam: Present: normal lung sounds bilaterally. Absent: respiratory distress, wheezes, rales, rhonchi, stridor, accessory muscle use Cardiovascular Exam: Present: regular rate, normal rhythm, normal heart sounds. Absent: systolic murmur, diastolic murmur, rubs, gallop GI/Abdominal exam: Present: soft. Absent: distended, tenderness, guarding, r ebound, rigid, mass Extremities exam: Present: normal inspection, normal capillary refill. Absent: pedal edema, calf tenderness Back exam: Present: normal inspection. Absent: CVA tenderness (R), CVA tenderness (L) Neurological exam: Present: alert Skin exam: Present: warm, dry, intact, normal color. Absent: rash Course Vital Signs 07/01/24 13:24 Temperature 97.9 F Pulse Rate 106 H Respiratory 18 Rate Blood Pressure 144/110 O2 Sat by Pulse 99 Oximetry EKG Findings - EKG Results: EKG: interpreted by ERMD, sinus rhythm (Rate 72 bpm), normal axis, normal QRS, normal ST/T, no acute changes - HI, Pacemaker, Normal: Normal tracing: normal tracing Medical Decision Making - Medical Decision Making The patient had two-view chest x-ray that I interpreted as negative for acute infiltrate, pneumothorax, congestive heart failure. - Lab Data Result diagrams: 07/01/24 13:42 07/01/24 13:42 Lab Results 04/07/01/24 07/01/24 Range/Units 13:42 13:42 13:42 WBC 6.39 (4.50-10.00) 10*3/uL RBC 4.95 (4.10-5.20) 10*6/uL Hgb 15.1 H (12.0-15.0) g/dL Hct 44.6 (37.2-46.3) % MCV 90.1 (80.0-97.0) fL MCH 30.5 (27.0-32.0) pg MCHC 33.9 (32.0-37.0) g/dL Plt Count 263 (140-440) 10*3/uL MPV 9.8 (9.5-12.2) fL Immature Gran % (Auto) 0.2 % Neutrophils % 67.7 % Lymphocytes % 23.8 % Monocytes % 7.8 % Eosinophils % 0.2 % Basophils % 0.3 % Immature Gran # 0.01 (0.00-0.04) 10*3/uL Neutrophils # 4.33 (1.80-7.70) 10*3/uL Lymphocytes # 1.52 (0.90-5.00) 10*3/uL Monocytes # 0.50 (0.20-1.00) 10*3/uL Eosinophils # 0.01 L (0.04-0.35) 10*3/uL Basophils # 0.02 (0.00-0.10) 10*3/uL Sodium 138 (137-145) mmol/L Potassium 3.2 L (3.5-5.1) mmol/L Chloride 98 (98-107) mmol/L Carbon Dioxide 26 (22-30) mmol/L Anion Gap 14 mmol/L BUN 13 (7-17) mg/dL Creatinine 0.63 (0.52-1.04) mg/dL Est GFR (CKD-EPI)AfAm >90 (>60 ml/min/1.73 sqM) Est GFR (CKD-EPI)NonAf >90 (>60 ml/min/1.73 sqM) Glucose 141 H (74-99) mg/dL Calcium 10.0 (8.4-10.2) mg/dL Magnesium 1.9 (1.6-2.3) mg/dL Total Bilirubin 0.5 (0.2-1.3) mg/dL AST 33 (14-36) U/L ALT 27 (4-34) U/L Alkaline Phosphatase 62 (38-126) U/L Total Protein 8.1 (6.3-8.2) g/dL Albumin 4.9 (3.5-5.0) g/dL Amylase 50 (30-110) U/L Lipase 42 (23-300) U/L Urine Color Light Red Urine Appearance Cloudy H (Clear) Urine pH 6.0 (5.0-8.0) Ur Specific [place] 1.027 (1.001-1.035) Urine Protein 2+ H (Negative) Urine Glucose (UA) Trace H (Negative) Urine Ketones 1+ H (Negative) Urine Blood Large H (Negative) Urine Nitrite Negative (Negative) Urine Bilirubin 1+ H (Negative) Urine Urobilinogen 2.0 (<2.0) mg/dL Ur Leukocyte Esterase Negative (Negative) Urine RBC 58 H (0-5) /hpf Urine WBC 22 H (0-5) /hpf Ur Squamous Epith Cells 25 H (0-4) /hpf Granular Casts 75 (0) /lpf Urine Mucus Many H (None) /hpf Urine HCG, Qual (Not Detectd) Influenza Type A (PCR) (Not Detectd) Influenza Type B (PCR) (Not Detectd) RSV (PCR) (Not Detectd) SARS-CoV-2 (PCR) (Not Detectd) 07/01/24 07/01/24 Range/Units 13:42 13:42 WBC (4.50-10.00) 10*3/uL RBC (4.10-5.20) 10*6/uL Hgb (12.0-15.0) g/dL Hct (37.2-46.3) % MCV (80.0-97.0) fL MCH (27.0-32.0) pg MCHC (32.0-37.0) g/dL Plt Count (140-440) 10*3/uL MPV (9.5-12.2) fL Immature Gran % (Auto) % Neutrophils % % Lymphocytes % % Monocytes % % Eosinophils % % Basophils % % Immature Gran # (0.00-0.04) 10*3/uL Neutrophils # (1.80-7.70) 10*3/uL Lymphocytes # (0.90-5.00) 10*3/uL Monocytes # (0.20-1.00) 10*3/uL Eosinophils # (0.04-0.35) 10*3/uL Basophils # (0.00-0.10) 10*3/uL Sodium (137-145) mmol/L Potassium (3.5-5.1) mmol/L Chloride (98-107) mmol/L Carbon Dioxide (22-30) mmol/L Anion Gap mmol/L BUN (7-17) mg/dL Creatinine (0.52-1.04) mg/dL Est GFR (CKD-EPI)AfAm (>60 ml/min/1.73 sqM) Est GFR (CKD-EPI)NonAf (>60 ml/min/1.73 sqM) Glucose (74-99) mg/dL Calcium (8.4-10.2) mg/dL Magnesium (1.6-2.3) mg/dL Total Bilirubin (0.2-1.3) mg/dL AST (14-36) U/L ALT (4-34) U/L Alkaline Phosphatase (38-126) U/L Total Protein (6.3-8.2) g/dL Albumin (3.5-5.0) g/dL Amylase (30-110) U/L Lipase (23-300) U/L Urine Color Urine Appearance (Clear) Urine pH (5.0-8.0) Ur Specific [place] (1.001-1.035) Urine Protein (Negative) Urine Glucose (UA) (Negative) Urine Ketones (Negative) Urine Blood (Negative) Urine Nitrite (Negative) Urine Bilirubin (Negative) Urine Urobilinogen (<2.0) mg/dL Ur Leukocyte Esterase (Negative) Urine RBC (0-5) /hpf Urine WBC (0-5) /hpf Ur Squamous Epith Cells (0-4) /hpf Granular Casts (0) /lpf Urine Mucus (None) /hpf Urine HCG, Qual Not Detected (Not Detectd) Influenza Type A (PCR) Not Detected (Not Detectd) Influenza Type B (PCR) Detected A (Not Detectd) RSV (PCR) Not Detected (Not Detectd) SARS-CoV-2 (PCR) Not Detected (Not Detectd) Disposition Clinical Impression: Influenza B, Hypokalemia Disposition: HOME SELF-CARE Condition: Good Instructions (If sedation given, give patient instructions): Influenza (ED) Is patient prescribed a controlled substance at d/c from ED?: No Referrals: None,Stated [Primary Care Provider] - 1-2 days
[2024-07-01 14:00] LABS: Basophils # (A) 0.02 10*3/uL (0.00-0.10); Basophils % (A) 0.3 %; Eosinophils # (A) 0.01 10*3/uL (0.04-0.35); Eosinophils % (A) 0.2 %; HCT 44.6 % (37.2-46.3); HGB 15.1 g/dL (12.0-15.0); Lymphocytes # (A) 1.52 10*3/uL (0.90-5.00); Lymphocytes % (A) 23.8 %; MCH 30.5 pg (27.0-32.0); MCHC 33.9 g/dL (32.0-37.0); MCV 90.1 fL (80.0-97.0); Mean Platelet Volume 9.8 fL (9.5-12.2); Monocytes % (A) 7.8 %; Neutrophils # (A) 4.33 10*3/uL (1.80-7.70); Neutrophils % (A) 67.7 %; Platelet Count 263 10*3/uL (140-440); RBC 4.95 10*6/uL (4.10-5.20); RDW 13.8 % (11.5-14.5); WBC 6.39 10*3/uL (4.50-10.00)
[2024-07-01 14:04] LABS: Appearance,Urine Cloudy (Clear); Bilirubin,Urine 1+ (Negative); Blood,Urine Large (Negative); Color,Urine Light Red; Glucose,Urine (UA) Trace (Negative); Granular Casts,Urine 75 /lpf (0); Ketones,Urine 1+ (Negative); Leukocyte Esterase,Urine Negative (Negative); Mucus,Urine Many /hpf; Nitrite,Urine Negative (Negative); Protein,Urine 2+ (Negative); RBC,Urine 58 /hpf (0-5); Specific Gravity,Urine 1.027 (1.001-1.035); Squamous Epithelial Cell,Urine 25 /hpf (0-4); WBC,Urine 22 /hpf (0-5)
[2024-07-01 14:13] LABS: ALT 27 U/L (4-34); AST 33 U/L (14-36); African American GFR (CKD) >90 (>60 ml/min/1.73 sqM); Albumin 4.9 g/dL (3.5-5.0); Alkaline Phosphatase 62 U/L (38-126); Amylase 50 U/L (30-110); Anion Gap 14 mmol/L; Blood Urea Nitrogen 13 mg/dL (7-17); Carbon Dioxide 26 mmol/L (22-30); Chloride 98 mmol/L (98-107); Glucose 141 mg/dL (74-99); Lipase 42 U/L (23-300); Magnesium 1.9 mg/dL (1.6-2.3); Non-African American GFR(CKD) >90 (>60 ml/min/1.73 sqM); Potassium 3.2 mmol/L (3.5-5.1); Sodium 138 mmol/L (137-145); Total Bilirubin 0.5 mg/dL (0.2-1.3); Total Protein 8.1 g/dL (6.3-8.2)
[2024-07-01] MEDS: SODIUM CHLORIDE 0.9% 1,000 ML IV ONE ×2 (14:14→15:16)
--- NOTE | 2024-07-01 14:28 | XR ---
EXAMINATION TYPE: XR chest 2V DATE OF EXAM: 07/01/2024 2:24 PM COMPARISON: Prior chest radiograph 12/06/2022. CLINICAL INDICATION: Female, 33 years old with history of Chest Pain; [facility] TECHNIQUE: XR chest 2V Frontal and lateral views of the chest. FINDINGS: Lungs/Pleura: There is no evidence of pleural effusion, focal consolidation, or pneumothorax. Pulmonary vascularity: Unremarkable. Heart/mediastinum: Cardiomediastinal silhouette is unremarkable. Musculoskeletal: No acute osseous pathology. Other findings: None IMPRESSION: No acute cardiopulmonary disease/process. [facility], , 07/01/2024 2:26 PM
[2024-07-01 14:39] LABS: Influenza A Not Detected (Not Detectd); Influenza B Detected (Not Detectd); RSV Not Detected (Not Detectd)
[2024-07-01] MEDS: POTASSIUM CHLORIDE ER 20 MEQ TAB.ER PO STA (15:15)
[2024-07-01 16:06] VITALS: BP 128/74; PULSE 73
== END 2024-07-01 16:09 | disposition home or self-care (01) ==
LOC: EC 13:20
DX: J10.1 Influenza due to other identified influenza virus with other respiratory manifestations (principal); E87.6 Hypokalemia
CPT/HCPCS: 36415; 71046; 80053; 81001; 81025; 82150; 83690; 83735; 85025; 87636; 93005; 96360; 96361; 99285